=== PATIENT | female | born 1945 | race Caucasian/White ===

== ENCOUNTER 2025-06-22 11:51 | Outpatient (AMB) | payer OTHER, MEDICARE, SELFPAY ==
--- OUTSIDE RECORDS SUMMARY | 2023-12-26 05:40 | XMS_ITS ---
Author Organization Total [employer] Address [address] [place] [address] Care Team Providers Care Contribution Solicitor Name Role Phone MORGAN JUAREZ, HORACIO Primary Care Provider Pamela Vásquez Unavailable [phone] REASON FOR VISIT LR MEDICARE PE Encounters Encounter Location Date Provider Diagnosis [facility] [address] [place] [address] 12/26/2023 Pamela Walters Plan Of Treatment Next Appt Details Provider Name:Pamela english, 06/29/2026 11:00:00 AM, [address], [address], [place], [address], Progress Notes * RASHMI WAN HDOB:09/1944 (80 yo F)Acc No.[id number]:12/26/2023 PROGRESS NOTES Patient: Devin ORTIZALPANATALY MedinaKA Nedra Appointment Provider: Sarath Walters M.D. :1945 A ge:78 Y S ex:Female Date:12/26/2023 Address:[address] [place], [place] [id number] Pcp:HORACIO MORA MD Subjective: * Chief Complaints: * 1 . LR MEDICARE PE. * Medical History: Objective: * Vitals: Assessment: Plan: * Treatment: * Images: Billing Information: * Visit Code: * Procedure Codes: * Electronic signature of Joselin Walters MD on 06/22/2025 at 01:06 PM EST Sign off status: Pending * Appointment Provider: Sarath Walters M.D. Date: 0 12/26/2023 Generated for Shari alves/Toni/Fahad on: 1 08/23/2024 01:06 PM EST
--- OUTSIDE RECORDS SUMMARY | 2025-04-28 06:00 | XMS_ITS ---
Author Organization Total [employer] Address [address] [place] [address] Care Team Providers Care Patrol Judge Name Role Phone MORGAN JUAREZ, HORACIO Primary Care Provider Pamela Vásquez Unavailable [phone] REASON FOR VISIT TALK RE: BLOOD CHOLESTEROL??? Encounters Encounter Location Date Provider Diagnosis [facility] [address] [place] [address] 04/28/2025 Pamela Walters Plan Of Treatment Next Appt Details Provider Name:Pamela english, 06/29/2026 11:00:00 AM, [address], [address], [place], [address], Progress Notes * RASHMI WAN HDOB:09/1944 (80 yo F)Acc No.[id number]:04/28/2025 PROGRESS NOTES Patient: RASHMI GILMAN Appointment Provider: Sarath Walters M.D. :1945 A ge:79 Y S ex:Female Date:04/28/2025 Address:[address] [place] [address] [place], [place] Pcp:HORACIO MORA MD Subjective: * Chief Complaints: * 1 . TALK RE: BLOOD CHOLESTEROL???. * Medical History: Objective: * Vitals: Assessment: Plan: * Treatment: * Images: Billing Information: * Visit Code: * Procedure Codes: * Electronic signature of Joselin Walters MD on 06/22/2025 at 01:07 PM EST Sign off status: Pending * Appointment Provider: Sarath Walters M.D. Date: 1 Generated for Shari alves/Toni/Fahad on: 08/23/2024 01:07 PM EST
--- OUTSIDE RECORDS SUMMARY | 2025-06-22 04:40 | XMS_ITS ---
Author Organization [employer] [facility] Address [address] [place] [address] Care Team Providers Care Lock Operator Name Role Phone MORGAN JUAREZ, HORACIO Primary Care Provider Pamela Vásquez Unavailable [phone] Allergies No Known Allergies REASON FOR VISIT Annual FINANCIAL BUSINESS ANALYST Physical, Annual FINANCIAL BUSINESS ANALYST Physical 60-85+ Medications Medication SIG (Take, Route, [...] Answer Notes Tobacco use: Nonsmoker Vital Signs Height 61.5 in 06/22/2025 Weight 140 lbs 06/22/2025 BMI 26.02 kg/m2 06/22/2025 Blood pressure systolic 118 mm Hg 06/22/20 Blood pressure diastolic 62 mm Hg 025 Temperature 97.5 degrees Fahrenheit 06/22/20 25 Encounters Encounter Location Date Provider Diagnosis [address] [address] 06/22/2025 Pamela Romeo Encounter for gynecological examination [...] Provider Name:Pamela english, 06/29/2026 11:00:00 AM, [address], [address], [place], [address], Progress Notes * SAVAGENATALYKA HDOB:09/1944 (80 yo F)Acc No.[id number]:06/22/2025 PROGRESS NOTES Patient: RASHMI GILMAN Appointment Provider: Sarath Walters M.D. :1945 A ge:80 Y S ex:Female Date:06/22/2025 Address:[address] [place], [place] [id number] Pcp:HORACIO MORA MD Subjective: * Chief Complaints: * Annual FINANCIAL BUSINESS ANALYST PhysicalAnnual FINANCIAL BUSINESS ANALYST Physical 60-85+ * HPI: N ew/Follow-up Patient Consult: EMMA UNDERWENT BSO IN HER 30'S FOR BENIGN CYSTS. SHE WAS NOT PLACED ON HRT. SHE HAS C/O VAGINAL DRYNESS AND DYSPAREUNIA FOR YEARS AND UNDERWENT MARI RHONDA LASER TREATMENT IN [place] IN 2021 WITH NO RELIEF OF SYMPTOMS. [...] TOLERATE ANTIESTROGENS.? SHE IS BEING FOLLOWED AT [facility]. SHE SUFFERED A SUBDURAL HEMATOMA IN 2019 [...] calcium via diet and supplementation S ignificant FINANCIAL BUSINESS ANALYST problems: n o significant hyperion developer symptoms or problems * ROS: g eneral: [...] kin complaints. ? * Medical History: * [employer] History: G ravida/ Para 4 /2. S [...] * Images: Billing Information: * Visit Code: 28111 Preventive Care Est Pt. Age 65 and over. * Procedure Codes: 33731 PELVIC EXAMINATION. * Sign off status: Completed true * Appointment Provider: Saraht Walters M.D. Date: 08/23/2024 Generated for Shari alves/Toni/Maryitting on: 08/23/2024 01:06 PM EST History and Physical Notes * HPI (History of Present Illness) Category Sub-Category Detail Notes Category Not es New/Follow-up Patient Consult PAT UNDERWENT BSO IN HER 30'S FOR BENIGN CYSTS. SHE WAS NOT PLACED ON HRT. SHE HAS C/O VAGINAL DRYNESS AND DYSPAREUNIA FOR YEARS AND UNDERWENT MARI RHONDA LASER TREATMENT IN [place] IN 2021 WITH NO RELIEF OF SYMPTOMS. [...] TOLERATE ANTIESTROGENS. SHE IS BEING FOLLOWED AT [facility]. SHE SUFFERED A SUBDURAL HEMATOMA IN 2019 [...] ate calcium via diet and supplementation Significant FINANCIAL BUSINESS ANALYST problems:: n o significant hyperion developer symptoms or problems Examination Category Sub-Category Detail Notes Category Not es General Exam CONSTITUTIONAL: General Appearan ce:: alert, in no acute distress, normal, well nourished NECK/THYROID: Inspection/Palpation:: normal Thyroid:: normal size and shape RESPIRATORY: Auscultation: clear to auscultation bilaterally, Respiratory Effort: normal CARDIOVASCULAR: Auscultation: regula r rate and rhythm GASTROINTESTINAL: Abdomen:: no masses, nontender , nondistended Liver and Spleen:: normal Hernias:: no hernias present, no inguina l adenopathy MUSCULOSKELETAL: Inspection/Palpation:: no clubb ing, cyanosis, or edema SKIN: Skin:: normal NEURO/PSYCH: Orientation:: time , place, pers on Mood/Affect:: normal BREAST, Right: Inspection/Palpation :: no discharge, no [...]
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
--- NOTE | 2025-06-22 12:31 | MHC.OFFVIS ---
Intake Visit Reasons: lightheadness Allergies No Known Allergies Allergy (Verified 06/17/25 11:35) [facility] Medical History (Updated 06/22/25 @ 12:33 by Maral Nicolas MD) Subdural hematoma Seizure Physical Exam Neuro Other: Neurological: ? Abnormal neurological findings:??slight intermittent left hemifacial spasm john in orbicularis oculi? Mental Status:?alert and oriented X 3,?Normal attention, orientation, memory and affect.? Cranial Nerves:?Pupils are equal, round and reactive to light. Fundoscopy shows normal disc bilaterally. External occular muscles are intact. Visual tavares are full, no ptosis. Face is symmetrical, no facial weakness or droop. Facial sensations are normal. Tongue protrudes in midline. Palate elevates symmetrically. Shoulder shrugging is normal..? Motor Examination:?Normal muscle tone, bulk and strength,?No atrophy or fasciculations,?No drift of the extended upper extremities,?Deep tendon reflexes are 2+?,?Plantars are flexor?.? Motor Strength:? Proximal Muscles (out of 5): ?5 ? Distal Muscles (out of 5): ?5 ? Neck Flexors (out of 5): ?5 ? Neck Extensors (out of 5): ?5 ? Deltoid (out of 5): ?5 ? Biceps (out of 5): ?5 ? Triceps (out of 5): ?5 ? Serratus Anterior (out of 5): ?5 ? Wrist Extensors (out of 5): ?5 ? APB (out of 5): ?5 ? Finger Spread (out of 5): ?5 ? Ileopsoas (out of 5): ?5 ? Quadriceps (out of 5): ?5 ? Hamstrings (out of 5): ?5 ? Tibialis Anterior (out of 5): ?5 ? Peronei (out of 5): ?5 ? EDB (out of 5): ?5 ? Gastrocnemius (out of 5): ?5 ? Straight Leg Raising:?90 degrees.? Sensory Exam:?Normal light touch, temperature, pinprick, vibration and joint-position sensations?,?Rhomberg sign is absent.? Coordination:?no ataxia,?no titubation,?vibvvf-ws-ytcw, wcne-xnqq-cefj test and rapid alternating movements were normal.? Gait Exam:?Within normal limits.? Cerebellar Signs:?Cbxwow-mq-hbua and mjwj-qu-icou is normal,?no dysdiadochokinesia?.? Extrapyramidal System:?No tremor, rigidity with normal facial expressions,?No bradykinesia, no bradyphrenia. Normal arm swing and posture. No propulsion or retropulsion.? Speech:?Normal,?no dysphasia or dysarthria..? Mini Mental Status Exam: ? Level of Consciousness:?Alert.? Orientation:?Knows correct year, month, date, day and season,?Knows correct city, county and state. Knows correct location and floor.? Registration:?Able to register 3 objects.? Attention:?Serial 7's performed accurately.? Recall:?Able to recall 3 out of 3 objects.? Language:?Normal spontaneous speech, fluency, repetition,naming, comprehension, reading and writing.? Total Score ?30/30.? General Examination: ? GENERAL APPEARANCE:?normal,?in no acute distress.? HEAD:?normocephalic,?atraumatic.? EYES:?sclera non-icteric,?conjunctiva clear.? EARS:?auditory canal clear,?tympanic membrane intact, clear.? NOSE:?no lesions.? ORAL CAVITY:?gums normal,?mucosa moist,?no lesions.? THROAT:?clear.? NECK/THYROID:?no cervical lymphadenopathy,?thyroid normal,?neck supple, full range of motion,?no carotid bruit.? SKIN:?no rashes,?no significant birthmarks.? Assessment & Plan Assessment & Plan (1) Hyperlipidemia: Code(s): E78.5 - Hyperlipidemia, unspecified Category: Medical (2) Headache: Code(s): R51.9 - Headache, unspecified Category: Medical Qualifiers: Headache type: tension-type (3) Hemifacial spasm of left side of face: Code(s): G51.32 - Clonic hemifacial spasm, left Category: Medical Plan Check sedrate and lipid profile Orders: Orders Lipid Panel Today R51.9 - Headache, unspecified Erythrocyte Sedimentation Rate Today R51.9 - Headache, unspecified Coding Level of Care Code New Pt Level 5 (14987) Diagnoses Hyperlipidemia E78.5 Headache R51.9 Headache type: tension-type Hemifacial spasm of left side of face G51.32
--- OUTSIDE RECORDS SUMMARY | 2025-06-22 13:07 | XMS_ITS | Patient Health Record ---
Author Organization [facility] [address] Address [address] [place] [address] Care Team Providers Care Deep Fat Cook Fry Name Role Phone VALENTIN, BHASKARROBBIE Primary Care Provider [phone] DARIEL THOMPSON Unavailable [phone] SHONAUNRULY TANIKA Unavailable [phone] Normoyle, Abimael Unavailable [phone] Allergies Allergen (clinical drug ingredient) Drug/Non Drug Allergy documented on EMR Reaction Allergy Type Onset Date Status benzonatate Benzonatate rash Drug Allergy Act antoine Results Component Value Reference Range Flag Notes Comp. Metabolic Panel (14)-3 [id number] Reviewed date:03/23/2025 04:35:22 PM Interpretation: Performing Lab:[facility], [address] [place] [address], [place], Phone - [phone], Director - Jesus Notes/Report: Glucose 93 70-99 mg/dL BUN 10 8-27 mg/dL Creatinine 0.74 0.57-1.00 mg/dL eGFR 82 >59 mL/min/1.73 BUN/Creatinine Ratio 14 12-28 Sodium 138 134-144 mmol/L Potassium 5.3 3.5-5.2 mmol/L H Chloride 101 96-106 mmol/L Carbon Dioxide, Total 23 20-29 mmol/L Calcium 9.5 8.7-10.3 mg/dL Protein, Total 6.6 6.0-8.5 g/dL Albumin 4.1 3.8-4.8 g/dL Globulin, Total 2.5 1.5-4.5 g/dL Bilirubin, Total 0.5 0.0-1.2 mg/dL Alkaline Phosphatase 53 49-135 IU/L P lease note reference interval change AST (SGOT) 20 0-40 IU/L ALT (SGPT) 10 0-32 IU/L Lipid Panel-[id number] Reviewed date:03/23/2025 04:35:22 PM Interpretation: Performing Lab:[facility], [address] [place] [address], Phone - [phone], Director - MDMajodry Notes/Report: Cholesterol, Total 183 100-199 mg/dL Triglycerides 82 0-149 mg/dL HDL Cholesterol 72 >39 mg/dL VLDL Cholesterol Jaime 15 5-40 mg/dL LDL Chol Calc (NIH) 96 0-99 mg/dL Triiodothyronine (T3), Free- [id number] Reviewed date:03/23/2025 04:35:22 PM Interpretation: Performing Lab:[facility] [place], [address] [place] [address], Phone - [phone], Director - MDLaurita Notes/Report: Triiodothyronine (T3), Free 2.8 2.0-4.4 pg/mL CBC With Differential/Platel et-[id number] Reviewed date:03/23/2025 04:35:22 PM Interpretation: Performing Lab:[facility] [place], [address] [place] [address], Phone - [phone], Director - MDJodry Notes/Report: WBC 4.9 3.4-10.8 x10E3/uL RBC 4.24 3.77-5.28 x10E6/uL Hemoglobin 12.2 11.1-15.9 g/dL Hematocrit 40.4 34.0-46.6 % MCV 95 79-97 fL MCH 28.8 26.6-33.0 pg MCHC 30.2 31.5-35.7 g/dL L RDW 13.4 11.7-15.4 % Platelets 247 150-450 x10E3/uL Neutrophils 58 Not Estab. % Lymphs 28 Not Estab. % Monocytes 11 Not Estab. % Eos 2 Not Estab. % Basos 1 Not Estab. % Neutrophils (Absolute) 2.8 1.4-7.0 x10E3/uL Lymphs (Absolute) 1.4 0.7-3.1 x10E3/uL Monocytes(Absolute) 0.5 0.1-0.9 x10E3/uL Eos (Absolute) 0.1 0.0-0.4 x10E3/uL Baso (Absolute) 0.1 0.0-0.2 x10E3/uL Immature Granulocytes 0 Not Estab. % Immature Grans (Abs) 0.0 0.0-0.1 x10E3/uL TSH-[id number] Reviewed date:03/23/2025 04:35:22 PM Interpretation: Performing Lab:[facility] [place], [address] [facility], [place], Phone - [phone], Director - Jesus Notes/Report: TSH 1.950 0.450-4.500 uIU/mL Hemoglobin [id number] Reviewed date:03/23/2025 04:35:22 PM Interpretation: Performing Lab:[facility] [place], [address] [facility], [place], Phone - [phone], Director - Jesus Notes/Report: Hemoglobin A1c 5.7 4.8-5.6 % H . Prediabetes: 5.7 - 6.4 Diabetes: >6.4 Glycemic control for adults with diabetes: <7.0 VAS US DUPLEX CAROTID BILATE RAL Reviewed date:04/21/2025 03:05:14 PM Interpretation: Performing Lab: Notes/Report: Note See Note [facility], a member of [employer] Patient Name: SONAL WAN Date of : 1945 Reason for Exam: episodic lightheadness Exam Date: 04/13/2025 [id number] EST Report Status: Final Ordering Provider: ABIMAEL GIBBS PCP: TANIKA REED INDICATION: Episodic lightheadedness FINDINGS: Duplex and color images are obtained of the extracranial carotid arterial systems bilaterally. No prior studies are available for comparison. No significant atherosclerotic plaque. Normal velocities and waveforms noted bilaterally. There are normal end diastolic velocities bilaterally with antegrade flow in both vertebral arteries. IMPRESSION: No evidence of hemodynamically significant stenosis. -------- FINAL REPOR T -------- Dictated By: Hussein Aviles Dictated Date: 04/20/2025 16:26 ET Assigned Physician: Hussein Aviles Reviewed and Electronically Signed By: Hussein Aviles Signed Date: 04/20/2025 16:27 ET Workstation ID: [id number] Transcribed By: Self Edit Transcribed Date: 04/20/2025 16:26 ET MR BRAIN WO CONTRAST Reviewed date:04/29/2025 10:06:19 AM Interpretation: Performing Lab: Notes/Report: Note See Note [facility], a member of [employer] Patient Name: SONAL WAN Date of : 1945 Reason for Exam: TERRELL's Exam Date: 04/27/2025 [id number] EST Report Status: Final Ordering Provider: HORACIO VALENTIN PCP: TANIKA REED HISTORY: TERRELL's. TECHNIQUE: Routine M RI of the brain without contrast. COMPARISON: None available. FINDINGS: No acute territorial infarct, mass effect, or intracranial hemorrhage. Left middle cranial fossa cysts. No significant white matter disease Symmetric parenchyma l volume loss. CSF spaces commensurate for degree of atrophy. No hydrocephalus. Visualized paranasal sinuses are clear. Mastoid air cells are clear. No calvarial fractur e. Lens implants. IMPRESSION: No acute territorial infarct, mass effect, or intracranial hemorrhage. -------- FINAL REPOR T -------- Dictated By: Rafita Vyas Dictated Date: 04/27/2025 19:12 ET Assigned Physician: Rafita Vyas Reviewed and Electronically Signed By: Rafita Vyas Signed Date: 04/27/2025 19:16 ET Workstation ID: [id number] Transcribed By: Self Edit Transcribed Date: 04/27/2025 19:12 ET COMPREHENSIVE METABOLIC PANE L Reviewed date:03/03/2025 08:39:45 AM Interpretation: Performing Lab: Notes/Report: Sodium 137 133-145 mmol/L Potassium 4.4 3.5-5.5 mmol/L Chloride 102 96-110 mmol/L CO2 29 21-32 mmol/L Anion Gap 6 3-11 Glucose 87 70-100 mg/dL BUN 11 5-25 mg/dL Creatinine 0.88 0.50-1.10 mg/dL eGFR 67 >=60 mL/min/1.73m2 Calculation based on the Chronic Kidney Disease Epidemiology Collaboration (CKD-EPI) equation refit without adjustment for race. BUN/Creatinine Ratio 12.5 Calcium 9.3 8.5-10.5 mg/dL AST (SGOT) 20 10-42 unit/L ALT (SGPT) 14 10-60 unit/L Alkaline Phosphatase 51 42-121 unit/L Total Protein 6.8 6.0-8.0 g/dL Albumin 3.9 3.2-5.0 g/dL Total Bilirubin 0.4 0.0-1.4 mg/dL CBC WITH AUTO DIFFERENTIAL Reviewed date:03/02/2025 04:18:06 PM Interpretation: Performing Lab: Notes/Report: WBC 5.7 4.8-10.8 K/mcL RBC 4.10 3.80-4.80 M/mcL Hemoglobin 12.5 11.5-16.0 g/dL Hematocrit 38.1 35.0-47.0 % MCV 93.2 79.0-98.0 FL MCH 30.6 27.0-32.0 pcg MCHC 32.8 32.0-37.0 g/dL RDW 13.0 11.0-15.0 % Platelets 246 130-400 K/mcL MPV 11.1 7.0-11.0 FL H NRBC 0.0 <1.0 % NRBC Absolute 0.00 <0.10 K/mcL Neutrophils Relative 56.7 Lymphocytes Relative 31.4 Monocytes Relative 9.8 Eosinophils Relative 0.9 Basophils Relative 0.9 Immature Granulocytes Relative 0.3 Neutrophils Absolute 3.25 1.50-7.00 K/mcL Lymphocytes Absolute 1.80 1.00-5.00 K/mcL Monocytes Absolute 0.56 0.20-1.00 K/mcL Eosinophils Absolute 0.05 0.00-0.50 K/mcL Basophils Absolute 0.05 0.00-0.20 K/mcL Immature Granulocytes Absolute 0.02 0.00-0.03 K/mcL EKG (Not yet reviewed by pro vider) Interpretation: Performing Lab: Notes/Report: ECGDiastolicBP 86 ECGDiastolicBP 86 ECGHr 60 ECGHr 60 ECGPRInterval 220 ECGPRInterval 228 ECGPWaveAxis 62 ECGPWaveAxis 61 ECGQRSDuration 84 ECGQRSDuration 82 ECGQrsWaveAxis -20 ECGQrsWaveAxis -18 ECGQTcInterval 432 ECGQTcInterval 428 ECGQTInterval 432 ECGQTInterval 428 ECGSystolicBP 126 ECGSystolicBP 126 ECGTWaveAxis -1 ECGTWaveAxis -1 RR_DiastolicBP 0 RR_DiastolicBP 0 RR_MaxRRInterval 0 RR_MaxRRInterval 0 RR_MeanHR 0 RR_MeanHR 0 RR_MeanRRInterval 0 RR_MeanRRInterval 0 RR_MinRRInterval 0 RR_MinRRInterval 0 RR_NumBeats 0 RR_NumBeats 0 RR_NumNormalBeats 0 RR_NumNormalBeats 0 RR_SystolicBP 0 RR_SystolicBP 0 EKG (Not yet reviewed by pro vider) Interpretation: Performing Lab: Notes/Report: ECGDiastolicBP 86 ECGDiastolicBP 86 ECGHr 60 ECGHr 60 ECGPRInterval 220 ECGPRInterval 228 ECGPWaveAxis 62 ECGPWaveAxis 61 ECGQRSDuration 84 ECGQRSDuration 82 ECGQrsWaveAxis -20 ECGQrsWaveAxis -18 ECGQTcInterval 432 ECGQTcInterval 428 ECGQTInterval 432 ECGQTInterval 428 ECGSystolicBP 126 ECGSystolicBP 126 ECGTWaveAxis -1 ECGTWaveAxis -1 RR_DiastolicBP 0 RR_DiastolicBP 0 RR_MaxRRInterval 0 RR_MaxRRInterval 0 RR_MeanHR 0 RR_MeanHR 0 RR_MeanRRInterval 0 RR_MeanRRInterval 0 RR_MinRRInterval 0 RR_MinRRInterval 0 RR_NumBeats 0 RR_NumBeats 0 RR_NumNormalBeats 0 RR_NumNormalBeats 0 RR_SystolicBP 0 RR_SystolicBP 0 UA/M w/rflx Culture, Routine -[id number] Reviewed date:07/21/2024 09:42:46 AM Interpretation: Performing Lab:[facility], [address] [place] [address], [place], Phone - [phone], Director - Jesus Notes/Report: Specific [place] 1.016 1.005-1.030 pH 6.5 5.0-7.5 Urine-Color Yellow Yellow Appearance Clear Clear WBC Esterase 2+ Negative A Protein Trace Negative/Trace Glucose Negative Negative Ketones Negative Negative Occult Blood Negative Negative Bilirubin Negative Negative Urobilinogen,Semi-Qn 0.2 0.2-1.0 mg/dL Nitrite, Urine Negative Negative Microscopic Examination See below: M icroscopic was indicated and was performed. Urinalysis Reflex This sp ecimen has reflexed to a Urine Culture. WBC 0-5 0 - 5 /hpf RBC None seen 0 - 2 /hpf Epithelial Cells (non renal) 0-10 0 - 10 /hpf Casts None seen None seen /lpf Bacteria Few None seen/Few Urine Culture, Routine Final report Result 1 Culture shows less than 10,000 colony forming units of bacteria per milliliter of urine. This colony count is not generally considered to be clinically significant. GASTROINTESTINAL PATHOGENS M NAVDEEPDAYNAMeaghan STUDY Reviewed date:03/29/2025 02:20:02 PM Interpretation: Performing Lab: Notes/Report: PCR testing is much more sensitive than traditional techniques and allows for the detection of low numbers of stool pathogens. The clinical correlation of PCR results with the need for treatment and clinical outcomes has not been established. Therefore the results of PCR testing for stool pathogens must be taken into clinical context when making treatment decisions. This is a diagnostic test only, repeat testing for cure is not advised. You may consider infectious disease consult for additional guidance. Testing Performed by [facility] PCR Campylobacter Detection by PCR Not Detected Not Detected Plesiomonas shigelloides Detection by PCR Not Detected Not Detected Salmonella Detection by PCR Not Detected Not Detected Vibrio Detection by PCR Not Detected Not Detected Vibrio cholerae Detection by PCR Not Detected Not Detected Yersinia enterocolitica Detection by PCR Not Detected Not Detected Enteroaggregative E coli EAEC Detection by PCR Not Detected Not Detected Enteropathogenic E coli EPEC Detection Not Detected Not Detected Enterotoxigenic E coli ETEC LTST Detection Not Detected Not Detected Shiga-like toxin producing E coli STEC STX1 STX2 Det Not Detected Not Detected Shigella Enteroinvasive E coli EIEC Detection Not Detected Not Detected Cryptosporidium Detection by PCR Not Detected Not Detected Cyclospora cayetanensis Detection by PCR Not Detected Not Detected Entamoeba histolytica Detection by PCR Not Detected Not Detected Giardia lamblia Detection by PCR Not Detected Not Detected Adenovirus F 40 41 Detection by PCR Not Detected Not Detected Astrovirus Detection by PCR Not Detected Not Detected Norovirus GI GII Detection by PCR Not Detected Sapovirus Detection by PCR Not Detected Not Detected Rotavirus A Detection by PCR Not Detected Not Detected CBC With Differential/Platel et-[id number] Reviewed date:07/14/2024 11:23:29 AM Interpretation: Performing Lab:[facility], [address], [place], Phone - [phone], Director - Jesus Notes/Report: WBC 4.1 3.4-10.8 x10E3/uL RBC 4.14 3.77-5.28 x10E6/uL Hemoglobin 12.7 11.1-15.9 g/dL Hematocrit 38.8 34.0-46.6 % MCV 94 79-97 fL MCH 30.7 26.6-33.0 pg MCHC 32.7 31.5-35.7 g/dL RDW 12.9 11.7-15.4 % Platelets 254 150-450 x10E3/uL Neutrophils 47 Not Estab. % Lymphs 37 Not Estab. % Monocytes 12 Not Estab. % Eos 2 Not Estab. % Basos 2 Not Estab. % Neutrophils (Absolute) 2.0 1.4-7.0 x10E3/uL Lymphs (Absolute) 1.5 0.7-3.1 x10E3/uL Monocytes(Absolute) 0.5 0.1-0.9 x10E3/uL Eos (Absolute) 0.1 0.0-0.4 x10E3/uL Baso (Absolute) 0.1 0.0-0.2 x10E3/uL Immature Granulocytes 0 Not Estab. % Immature Grans (Abs) 0.0 0.0-0.1 x10E3/uL Lipid Panel-[id number] Reviewed date:07/14/2024 11:33:40 AM Interpretation: Performing Lab:[facility], [address] [facility], Phone - [phone], Director - MDJodry Notes/Report: Cholesterol, Total 198 100-199 mg/dL Triglycerides 76 0-149 mg/dL HDL Cholesterol 66 >39 mg/dL VLDL Cholesterol Jaime 14 5-40 mg/dL LDL Chol Calc ([facility]) 118 0-99 mg/dL H Comp. Metabolic Panel (14)-3 [id number] Reviewed date:07/14/2024 11:23:29 AM Interpretation: Performing Lab:[facility], [address] [facility], Phone - [phone], Director - MDJoy Notes/Report: Glucose 90 70-99 mg/dL BUN 11 8-27 mg/dL Creatinine 0.74 0.57-1.00 mg/dL eGFR 82 >59 mL/min/1.73 BUN/Creatinine Ratio 15 12-28 Sodium 140 134-144 mmol/L Potassium 4.3 3.5-5.2 mmol/L Chloride 105 96-106 mmol/L Carbon Dioxide, Total 22 20-29 mmol/L Calcium 9.2 8.7-10.3 mg/dL Protein, Total 6.3 6.0-8.5 g/dL Albumin 4.0 3.8-4.8 g/dL Globulin, Total 2.3 1.5-4.5 g/dL Bilirubin, Total 0.5 0.0-1.2 mg/dL Alkaline Phosphatase 55 44-121 IU/L AST (SGOT) 20 0-40 IU/L ALT (SGPT) 9 0-32 IU/L MR ANGIO HEAD WO CONTRAST Reviewed date:05/03/2025 03:54:21 PM Interpretation: Performing Lab: Notes/Report: Note See Note [facility], a member of [facility] Patient Name: SONAL WAN Date of : 1945 Reason for Exam: TERRELL's Exam Date: 04/27/2025 [id number] EST Report Status: Final Ordering Provider: HORACIO VALENTIN PCP: TANIKA REED PROCEDURE: MR angiogram of the rosebud of [place] without contrast. HISTORY: Headaches. COMPARISON: None. TECHNIQUE: 3-D gcsj-uh-crxbzy MR angiogram of the rosebud of [place]illermo with MIP reformats. Limited whole brain imaging performed with diffusion weighted and axial T2-weighted images. FINDINGS: The V4 segments are codominant and widely patent. The basilar artery a nd both recycle driver are widely patent. Diminutive left posterior communicating artery. No visible right posterior communicating artery. The carotid siphons, middle cerebral arteries, anterior cerebral arteries are widely patent. There is no evidence of an aneurysm or vascular malformation. IMPRESSION: Normal MR angiogram of the rosebud of Guillermo. -------- FINAL REPOR T -------- Dictated By: Azeem Min Dictated Date: 04/30/2025 12:09 ET Assigned Physician: Azeem Min Reviewed and Electronically Signed By: Azeem Min Signed Date: 04/30/2025 13:07 ET Workstation ID: [id number] Transcribed By: Self Edit Transcribed Date: 04/30/2025 12:10 ET MR ANGIO NECK WO AND W CONTR AST Reviewed date:05/03/2025 03:54:21 PM Interpretation: Performing Lab: Notes/Report: Note See Note [facility], a member of [employer] Patient Name: SONAL WAN Date of : 1945 Reason for Exam: TERRELL's Exam Date: 04/27/2025 [id number] EST Report Status: Final Ordering Provider: HORACIO VALENTIN PCP: TANIKA REED Procedure: MR angiogram of the neck. HISTORY: Headaches. COMPARISON: None. TECHNIQUE: Contrast-enhanced as well as 2-D and 3-D lies-cu-wkesmi MR angiogram of the neck. IV contrast dose: 20 mL intravenous Dotarem from a 20 mL vial with 0 mL discarded. FINDINGS: Standard three-vesse l aortic arch configuration. No subclavian stenosis. The common and internal carotid arteries are widely patent. Codominant vertebral arteries. No vertebral stenosis. IMPRESSION: Normal MR angiogram of the neck. -------- FINAL REPOR T -------- Dictated By: Azeem Min Dictated Date: 04/30/2025 12:10 ET Assigned Physician: Azeem Min Reviewed and Electronically Signed By: Azeem Min Signed Date: 04/30/2025 13:08 ET Workstation ID: [id number] Transcribed By: Self Edit Transcribed Date: 04/30/2025 12:20 ET Reason For Referral Reason Diagnosis 1 Episodic lightheaded ness (R42) Referral Organization [facility] [address] Referring Provider First Name Abimael Referring Provider Last Name Dangelo Referring Provider Speciality Internal M edicine Referred Provider Specialty Neurology General Notes Akosua Bajwa 08:38:43 AM > referral faxed to [phone] pt given phone [phone] Referral Priority Routine Medications Medication SIG (Take, Route, Frequency, Duration) Notes Start Date End Date Status Multivitamin - Tablet 1 tablet Orally On ce a day Not-Taking Fish Oil Not-Taking Rosuvastatin Calcium 5 MG Tablet Take 1 tablet by mouth once daily; Duration: 90 Active Magnesium Citrate 100 MG Tablet as directed Orally daily 03/25/2025 Active Aspirin 81 MG Tablet Chewable 1 tablet Orally Once a day; Duration: 90 days 07/09/2024 Active Immunizations Vaccine Route Administration Date Status Comme nts Flu vaccine no Preserv 3 and > IM Intramuscular 03/11/2018 Administered influenza IM Intramuscular 03/30/2021 Administered influenza IM Intramuscular 04/02/2022 Administered influenza IM Intramuscular 07/09/2024 Administered Social History Tobacco Use: Social History Observation Description Date Details (start date - stop date) Never Smoker NA - NA Social History Drugs/Alcohol: Social Info Question Answer Notes Drugs Have you used drugs other than those for medical reasons in the past 12 months? No Tobacco Use: Social Info Question Answer Notes Tobacco Use/Smoking Are you a nonsmoker Additional Details Category Social Info Options Details Drugs/Alcohol: Do you smoke marijuana? De nies Do you drink alcohol? No Problems Problem Type SNOMED Code ICD Code Onset Dates Problem Status W/U Status Risk Notes Problem Vitamin D deficiency (45031202) Vitamin D deficiency, unspecified (E55.9) Active confirmed Problem Mixed hyperlipidemia (365355665) Mixed hyperlipidemia (E78.2) Active confirmed Problem Atopic dermatitis (07238790) Atopic dermatitis, unspecified (L20.9) Active confirmed Problem Sciatica (08479839) Lumbago with sciatica, unspecified side (M54.40) Active confirmed Problem Adult health examination (209575818) Encounter for general adult medical examination without abnormal findings (Z00.00) Active confirmed Problem Vertigo (422366887) Vertigo (R42) Active confirmed Problem Annual health maintenance examination (67726916) Annual physical exam (Z00.00) Active confirmed Problem 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) Venous insufficiency (I87.2) Active confirmed Problem Seizure disorder (039944354) Seizure disorder (G40.909) Active confirmed Problem Transient ischemic attack (670955840) TIA (transient ischemic attack) (G45.9) Active confirmed Problem Burning mouth syndrome (806499366) 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) Active confirmed Problem Tension headache (598390549) Tension headache (G44.209) Active confirmed Problem Lipid screening (431858704) Lipid screening (Z13.220) Active confirmed Problem Hyperlipidemia (23920851) Hyperlipidemia (E78.5) Active confirmed Problem Congenital heart disease (88563875) Heart abnormality (Q24.9) Active confirmed Vital Signs Heart Rate 61 /min 04/15/2025 Oximetry 99 % 04/15/2025 Blood pressure diastolic 60 mm Hg 04/15/2025 Height 62 in 04/15/2025 Blood pressure systolic 124 mm Hg 04/15/2025 Weight 144.4 lbs 04/15/2025 BMI 26.41 kg/m2 04/15/2025 Encounters Encounter Location Date Provider Diagnosis [facility] [address] [facility] [address] [place] [address] 07/09/2024 HORACIO VALENTIN Annual physical exam Z00.00 ; Lipid screening Z13.220 and Encounter for immunization Z23 [facility] [address] [facility] [address] [place] [address] 03/02/2025 TANIKA REED Diarrhea, unspecifie d R19.7 ; TIA (transient ischemic attack) G45.9 ; Hyperlipidemia E78.5 and Encounter for examination of blood pressure without abnormal findings Z01.30 [facility] [address] [address] 03/19/2025 Abimael Normoyle Episodic lightheaded ness R42 ; Hx-TIA (transient ischemic attack) Z86.73 ; Mixed hyperlipidemia E78.2 and Encounter for examination of blood pressure without abnormal findings Z01.30 [facility] [address] [address] 03/25/2025 Abimael Normoyle Episodic lightheaded ness R42 ; Hx-TIA (transient ischemic attack) Z86.73 ; Mixed hyperlipidemia E78.2 ; Diarrhea, unspecified R19.7 and Encounter for examination of blood pressure without abnormal findings Z01.30 [facility] [address] [address] 04/01/2025 Abimael Normoyle Episodic lightheaded ness R42 ; Hx-TIA (transient ischemic attack) Z86.73 ; Mixed hyperlipidemia E78.2 and Encounter for examination of blood pressure without abnormal findings Z01.30 [facility] [address] [address] 04/15/2025 Abimael Normoyle Episodic lightheaded ness R42 ; Hx-TIA (transient ischemic attack) Z86.73 ; Mixed hyperlipidemia E78.2 ; Hx of subdural hematoma Z86.79 ; Encounter for examination of blood pressure without abnormal findings Z01.30 and Acute nonintractable headache, unspecified headache type R51.[address] [facility] [address] [place] [address] 11/24/2024 DARIEL THOMPSON [facility] [address] [place], [place] 02/18/2025 TALAL VALENTIN [facility] [address] [place] [address] 02/23/2025 TALAL VALENTIN [facility] [address] [place] [address] [place] [phone] 03/03/2025 TANIKA NAGELKS [facility] [address] [place] [address] [place] [address] 03/03/2025 TALAL VALENTIN [facility] [address] [place] [address] [place] [address] 03/18/2025 TALAL VALENTIN [facility] [address] [place] [address] 03/19/2025 Abimael Normoyle [facility] [address] [place] [address] [place] [phone] 04/01/2025 TALAL VALENTIN [facility] [address] [place] [address] 04/08/2025 Abimael Normoyle Headache, unspecifie d R51.9 [facility] [address] [place] [address] [place] [phone] 04/20/2025 Abimael Normoyle [facility] [address] [place] [address] 04/21/2025 Abimael Normoyle Headache, unspecifie d R51.9 [facility] [address] [place] [address] [place] [phone] 04/21/2025 Abimael Normoyle [facility] [address] [place] [address] 05/03/2025 TALAL VALENTIN Assessments Encounter Date Diagnosis (ICD Code) Assessment Notes Treatment Notes Treatment Clinical Notes Section Notes 07/09/2024 Annual physical exam (ICD-10 - Z00.00) Insert insert physical plan from wo Patient seen and examined. Comprehensive discussion was done on the following. 1. Nutrition: It is important to follow a healthy diet based on lots of vegetables and legumes and good fat. Avoid processed food and processed carbohydrates. Learn to prepare your own meals. Learn to read labels and avoid high fructose corn syrup, processed chemicals added to increase shelf life and preprepared meals. Avoid fast foods. Learn to eat slowly and plan meals for a week. Try to count calories and be mindful off daily calorie intake. Get into the habit of keeping an eye on your weight by using an appropriate scale. Learn to log exercise and discussed fitness Apps like [employer] which can help keep log off calories taken versus calories burned. Local food should be preferred. Discussed Dirty Dozen Versus Clean Fifteen. Discussed healthy supplements like fish oil, Tumeric, Curcumin, Melatonin, Resveratrol, Probiotics, Vitamin-D, Alpha-Lipoic acid, Vitamin-D and coconut oil. 2. It is important to exercise regularly. Is a good habit to walk at least 30-45 minutes a day. Gentle weightlifting with standard precautions to protect the back. Finding activity like cycling or hiking and get into the habit of engaging in it. Stretching before and after the exercises important. It is also important to contact me if there are any problems like shortness of breath, chest pain, back pain and joint or muscle pain associated with the exercise. 3. Discussed age appropriate screening guidelines. Colonoscopy needs to start at age 50 with stool for occult blood as appropriate. There is a new test that can test for genetic abnormalities in the stool sample. This would not replace a colonoscopy but could be used as a screening tool for patients who do not want a colonoscopy. We discussed the importance of early detection of colon cancer. 4. Discussed current guidelines with respect to breast examination, mammogram and pap smear for early detection of breast and cervical cancer. Patient advised to follow up with these appointments. 5. Discussed safe driving and no use of smart phone while driving 6. Age-appropriate immunizations were discussed. A tetanus booster is needed every 10 years. Flu vaccine is recommended every year just before the start of the flu season. Shingles vaccine is recommended after age 50 but not all insurances cover it. Pneumonia vaccine is given after age 65 unless there are certain comorbidities for which it is started earlier. 7. Diagnostic labs were discussed. These could include CBC CMP and lipids with fasting blood glucose and insulin levels. Vitamin D and hemoglobin A1c testing might be appropriate. 8. Patient will start rosuvastatin for hyperlipidemia and aspirin 81 mg at least twice a and follow-up in 1 year and sooner if needed 9.Flu vaccine was updated today 03/02/2025 Diarrhea, unspecified (ICD-10 - R19.7) Patient is an 79-year-old female with history of chronic lumbar pain, TIA, and seizure disorder who presents today for urgent visit for approximately 2 weeks of diarrhea, constipation, and abdominal distention. She reports that stools are nonbloody and not tarry appearing. Denies fever. Reports no nausea or vomiting. No known sick contacts. On exam she is well-appearing and in no acute distress. Vital signs are stable. Cardiopulmonary exam unremarkable. Abdominal exam reveals active bowel sounds to auscultation, abdomen is soft, slightly distended upon palpation. She has generalized discomfort with gentle palpation however no localized tenderness in any quadrant. No rebound tenderness or masses. At this time plan will be to obtain updated labs including CBC and comprehensive metabolic panel, because she has had several weeks of abnormal stools we will obtain stool cultures. Low suspicion for infectious etiology at this time. Will evaluate for any electrolyte abnormalities. Advised patient to continue regular hydration with electrolytes, maintain high-fiber diet, and begin taking a probiotic daily. Patient understanding, advised to return to the office if symptoms do not improve. All patient questions answered at this time. # History of TIA: Continue use of aspirin 81 mg once daily and rosuvastatin 5 mg daily. # Hyperlipidemia: Lipid panel in July 2024 with finding of elevated LDL cholesterol at 118. Continue daily statin and fish oil supplement. All questions have been answered to patient's satisfaction. Patient verbalized understanding of diagnosis and treatments explained. Advised to call sooner prior to next visit it any questions/concerns arise. Case discussed with collaborating physician Karli Valentin who reviewed the assessment and plan. Chart, medications, labs, vital signs reviewed. Dictation was accomplished with the use of [employer] voice recognition software, which is prone to medical misidentifications and grammatical errors. This are unintentional and the practitioner does try to identify and correct these, but some could still be present. Please do not hesitate to contact practitioner for clarification. 03/02/2025 TIA (transient ischemic attack) (ICD-10 - G45.9) Patient is an 79-year-old female with history of chronic lumbar pain, TIA, and seizure disorder who presents today for urgent visit for approximately 2 weeks of diarrhea, constipation, and abdominal distention. She reports that stools are nonbloody and not tarry appearing. Denies fever. Reports no nausea or vomiting. No known sick contacts. On exam she is well-appearing and in no acute distress. Vital signs are stable. Cardiopulmonary exam unremarkable. Abdominal exam reveals active bowel sounds to auscultation, abdomen is soft, slightly distended upon palpation. She has generalized discomfort with gentle palpation however no localized tenderness in any quadrant. No rebound tenderness or masses. At this time plan will be to obtain updated labs including CBC and comprehensive metabolic panel, because she has had several weeks of abnormal stools we will obtain stool cultures. Low suspicion for infectious etiology at this time. Will evaluate for any electrolyte abnormalities. Advised patient to continue regular hydration with electrolytes, maintain high-fiber diet, and begin taking a probiotic daily. Patient understanding, advised to return to the office if symptoms do not improve. All patient questions answered at this time. # History of TIA: Continue use of aspirin 81 mg once daily and rosuvastatin 5 mg daily. # Hyperlipidemia: Lipid panel in July 2024 with finding of elevated LDL cholesterol at 118. Continue daily statin and fish oil supplement. All questions have been answered to patient's satisfaction. Patient verbalized understanding of diagnosis and treatments explained. Advised to call sooner prior to next visit it any questions/concerns arise. Case discussed with collaborating physician Karli Valentin who reviewed the assessment and plan. Chart, medications, labs, vital signs reviewed. Dictation was accomplished with the use of [employer] voice recognition software, which is prone to medical misidentifications and grammatical errors. This are unintentional and the practitioner does try to identify and correct these, but some could still be present. Please do not hesitate to contact practitioner for clarification. 03/19/2025 Episodic lightheadedness (ICD-10 - R42) Sonal is a 79-year-old female with past medical history of hyperlipidemia, seizure disorder, and TIA in 2021 who presents for urgent visit regarding lightheadedness for 1 week, intermittent in nature lasting up to a couple of hours. Denies symptoms occurring with positional changes, denies chest pain, shortness of breath, vision changes, palpitations, presyncope, syncope. She has been hydrating and eating well. Physical exam benign, vital signs stable, regular rate and rhythm on cardiac auscultation with no carotid bruits auscultated. #Lightheadedness: Differential is broad. Plan for CBC, CMP, thyroid panel, vitamin B12. Plan for carotid ultrasound. Encouraged patient to take her BP at home when she feels lightheaded to evaluate for hypotension. Advised performing a EKG and orthostatics in office today, however, patient declines due to time crunch. Will follow-up in 1 week for reevaluation. At this time, will perform EKG and orthostatics. Patient encouraged to report to the ER for syncope, advised to call the office sooner if symptoms persist or worsen. #Hyperlipidemia: Patient requesting repeat lipid panel. She is interested in discontinuing rosuvastatin. Lipid panel placed today. All questions have been answered to patient's satisfaction. Patient verbalized understanding of diagnosis and treatments explained. Advised to call sooner prior to next visit it any questions/concerns arise. Case discussed with collaborating physician Karli Valentin who reviewed the assessment and plan. Chart, medications, labs, vital signs reviewed. Dictation was accomplished with the use of [employer] voice recognition software, which is prone to medical misidentifications and grammatical errors. This are unintentional and the practitioner does try to identify and correct these, but some could still be present. Please do not hesitate to contact practitioner for clarification. 03/19/2025 Hx-TIA (transient ischemic attack) (ICD-10 - Z86.73) Sonal is a 79-year-old female with past medical history of hyperlipidemia, seizure disorder, and TIA in 2021 who presents for urgent visit regarding lightheadedness for 1 week, intermittent in nature lasting up to a couple of hours. Denies symptoms occurring with positional changes, denies chest pain, shortness of breath, vision changes, palpitations, presyncope, syncope. She has been hydrating and eating well. Physical exam benign, vital signs stable, regular rate and rhythm on cardiac auscultation with no carotid bruits auscultated. #Lightheadedness: Differential is broad. Plan for CBC, CMP, thyroid panel, vitamin B12. Plan for carotid ultrasound. Encouraged patient to take her BP at home when she feels lightheaded to evaluate for hypotension. Advised performing a EKG and orthostatics in office today, however, patient declines due to time crunch. Will follow-up in 1 week for reevaluation. At this time, will perform EKG and orthostatics. Patient encouraged to report to the ER for syncope, advised to call the office sooner if symptoms persist or worsen. #Hyperlipidemia: Patient requesting repeat lipid panel. She is interested in discontinuing rosuvastatin. Lipid panel placed today. All questions have been answered to patient's satisfaction. Patient verbalized understanding of diagnosis and treatments explained. Advised to call sooner prior to next visit it any questions/concerns arise. Case discussed with collaborating physician Karli Valentin who reviewed the assessment and plan. Chart, medications, labs, vital signs reviewed. Dictation was accomplished with the use of [employer] voice recognition software, which is prone to medical misidentifications and grammatical errors. This are unintentional and the practitioner does try to identify and correct these, but some could still be present. Please do not hesitate to contact practitioner for clarification. 03/25/2025 Episodic lightheadedness (ICD-10 - R42) Sonal is a 79-year-old female with past medical history of hyperlipidemia, seizure disorder, and TIA in 2021 who presents for follow up visit regarding lightheadedness for 2 weeks, intermittent in nature lasting up to a couple of hours. Denies symptoms occurring with positional changes, denies chest pain, shortness of breath, vision changes, palpitations, syncope. She has been hydrating and eating well. Physical exam benign, vital signs stable, orthostatic vitals unremarkable, regular rate and rhythm on cardiac auscultation with no carotid bruits auscultated. EKG sinus rhythm, first degree AV block, rate 60. OK interval 220. QTc 432. No ST segment elevations or depressions, no T wave inversions. CBC, CMP, TSH, B12 unremarkable. #Lightheadedness: Thus far, orthostatic vitals, labs, EKG unremarkable. Plan for carotid ultrasound. Patient encouraged to report to the ER for syncope, advised to call the office sooner if symptoms persist or worsen. Discussed MRI brain given history of TIA and brain bleed, however, patient declines. Discussed further work up including echocardiogram, Holter, however, patient declines. Will follow carotid ultrasound. If normal and symptoms ongoing, will consider further work up. F/u in 1 week. #Hyperlipidemia: Lipid panel significantly improved with rosuvastatin 5 mg tablets every other day. She is requesting to discontinue. Given history of TIA, along with workup of carotid artery stenosis, recommended continuing rosuvastatin. All questions have been answered to patient's satisfaction. Patient verbalized understanding of diagnosis and treatments explained. Advised to call sooner prior to next visit it any questions/concerns arise. Case discussed with collaborating physician Karli Valentin who reviewed the assessment and plan. Chart, medications, labs, vital signs reviewed. Dictation was accomplished with the use of [employer] voice recognition software, which is prone to medical misidentifications and grammatical errors. This are unintentional and the practitioner does try to identify and correct these, but some could still be present. Please do not hesitate to contact practitioner for clarification. 03/25/2025 Hx-TIA (transient ischemic attack) (ICD-10 - Z86.73) Sonal is a 79-year-old female with past medical history of hyperlipidemia, seizure disorder, and TIA in 2021 who presents for follow up visit regarding lightheadedness for 2 weeks, intermittent in nature lasting up to a couple of hours. Denies symptoms occurring with positional changes, denies chest pain, shortness of breath, vision changes, palpitations, syncope. She has been hydrating and eating well. Physical exam benign, vital signs stable, orthostatic vitals unremarkable, regular rate and rhythm on cardiac auscultation with no carotid bruits auscultated. EKG sinus rhythm, first degree AV block, rate 60. OK interval 220. QTc 432. No ST segment elevations or depressions, no T wave inversions. CBC, CMP, TSH, B12 unremarkable. #Lightheadedness: Thus far, orthostatic vitals, labs, EKG unremarkable. Plan for carotid ultrasound. Patient encouraged to report to the ER for syncope, advised to call the office sooner if symptoms persist or worsen. Discussed MRI brain given history of TIA and brain bleed, however, patient declines. Discussed further work up including echocardiogram, Holter, however, patient declines. Will follow carotid ultrasound. If normal and symptoms ongoing, will consider further work up. F/u in 1 week. #Hyperlipidemia: Lipid panel significantly improved with rosuvastatin 5 mg tablets every other day. She is requesting to discontinue. Given history of TIA, along with workup of carotid artery stenosis, recommended continuing rosuvastatin. All questions have been answered to patient's satisfaction. Patient verbalized understanding of diagnosis and treatments explained. Advised to call sooner prior to next visit it any questions/concerns arise. Case discussed with collaborating physician Karli Valentin who reviewed the assessment and plan. Chart, medications, labs, vital signs reviewed. Dictation was accomplished with the use of [employer] voice recognition software, which is prone to medical misidentifications and grammatical errors. This are unintentional and the practitioner does try to identify and correct these, but some could still be present. Please do not hesitate to contact practitioner for clarification. 04/01/2025 Episodic lightheadedness (ICD-10 - R42) Sonal is a 79-year-old female with past medical history of hyperlipidemia, seizure disorder, and TIA in 2021 who presents for follow up visit regarding lightheadedness for 3 weeks, intermittent in nature lasting up to a couple of hours. Denies symptoms occurring with positional changes, denies chest pain, shortness of breath, vision changes, palpitations, syncope. She has been hydrating and eating well. Physical exam benign, vital signs stable, orthostatic vitals unremarkable, regular rate and rhythm on cardiac auscultation with no carotid bruits auscultated. EKG sinus rhythm, first degree AV block, rate 60. OK interval 220. QTc 432. No ST segment elevations or depressions, no T wave inversions. CBC, CMP, TSH, B12 unremarkable. #Lightheadedness: Patient requires extensive education regarding importance of workup of her symptoms. She is agreeable to carotid ultrasound which is pending scheduling, previously declined imaging of the brain. Today, continue to have ongoing discussions regarding brain imaging. She is agreeable to MRI brain. Plan for MRI with MRA head and neck for further evaluation. Will cancel carotid ultrasound due to MRA providing details of vasculature. Will follow-up again in 2 weeks. #Hyperlipidemia: Lipid panel significantly improved with rosuvastatin 5 mg tablets every other day. She is requesting to discontinue. Given history of TIA, along with workup of carotid artery stenosis, recommended continuing rosuvastatin. All questions have been answered to patient's satisfaction. Patient verbalized understanding of diagnosis and treatments explained. Advised to call sooner prior to next visit it any questions/concerns arise. Case discussed with collaborating physician Karli Valentin who reviewed the assessment and plan. Chart, medications, labs, vital signs reviewed. Dictation was accomplished with the use of Dragon voice recognition software, which is prone to medical misidentifications and grammatical errors. This are unintentional and the practitioner does try to identify and correct these, but some could still be present. Please do not hesitate to contact practitioner for clarification. 04/01/2025 Hx-TIA (transient ischemic attack) (ICD-10 - Z86.73) Sonal is a 79-year-old female with past medical history of hyperlipidemia, seizure disorder, and TIA in 2021 who presents for follow up visit regarding lightheadedness for 3 weeks, intermittent in nature lasting up to a couple of hours. Denies symptoms occurring with positional changes, denies chest pain, shortness of breath, vision changes, palpitations, syncope. She has been hydrating and eating well. Physical exam benign, vital signs stable, orthostatic vitals unremarkable, regular rate and rhythm on cardiac auscultation with no carotid bruits auscultated. EKG sinus rhythm, first degree AV block, rate 60. OK interval 220. QTc 432. No ST segment elevations or depressions, no T wave inversions. CBC, CMP, TSH, B12 unremarkable. #Lightheadedness: Patient requires extensive education regarding importance of workup of her symptoms. She is agreeable to carotid ultrasound which is pending scheduling, previously declined imaging of the brain. Today, continue to have ongoing discussions regarding brain imaging. She is agreeable to MRI brain. Plan for MRI with MRA head and neck for further evaluation. Will cancel carotid ultrasound due to MRA providing details of vasculature. Will follow-up again in 2 weeks. #Hyperlipidemia: Lipid panel significantly improved with rosuvastatin 5 mg tablets every other day. She is requesting to discontinue. Given history of TIA, along with workup of carotid artery stenosis, recommended continuing rosuvastatin. All questions have been answered to patient's satisfaction. Patient verbalized understanding of diagnosis and treatments explained. Advised to call sooner prior to next visit it any questions/concerns arise. Case discussed with collaborating physician Karli Valentin who reviewed the assessment and plan. Chart, medications, labs, vital signs reviewed. Dictation was accomplished with the use of [employer] voice recognition software, which is prone to medical misidentifications and grammatical errors. This are unintentional and the practitioner does try to identify and correct these, but some could still be present. Please do not hesitate to contact practitioner for clarification. 04/08/2025 Headache, unspecified (ICD-10 - R51.9) 04/15/2025 Episodic lightheadedness (ICD-10 - R42) Sonal is a 79-year-old female with past medical history of hyperlipidemia, seizure disorder, and TIA in 2021 who presents for follow up visit regarding dizziness and headaches for 1 month, intermittent in nature lasting up to a couple of hours. Denies symptoms occurring with positional changes, denies chest pain, shortness of breath, vision changes, palpitations, presyncope, or syncope. She has been hydrating and eating well. Physical exam benign, vital signs stable, orthostatic vitals unremarkable, regular rate and rhythm on cardiac auscultation with no carotid bruits auscultated. EKG sinus rhythm, first degree AV block, rate 60. OK interval 220. QTc 432. No ST segment elevations or depressions, no T wave inversions. CBC, CMP, TSH, B12 unremarkable. #Lightheadedness: Patient requires extensive education regarding importance of workup of her symptoms. She is now agreeable for brain imaging. MRI brain and MRA head and neck was placed 04/08/2025, pending scheduling. Patient given phone number to call regarding imaging. Encouraged patient to report to the ER if she develops severe headache, vision changes, presyncope or syncope. She expresses understanding. Referral to neurology placed today. #Headaches: Intermittent, mild headache ongoing for the past month. She believes it is due for neck arthritis. Differential includes cervical spine arthritis, benign headache, SDH, vertigo with associated dizziness, or arterial etiology. Discussed ER last visit to expedite imaging to rule out life threatening etiology, patient declined. She also cancelled brain imaging after this visit. Today she is agreeable. Plan for brain imaging noted above. If normal, will undergo further workup to determine etiology of headaches. Referral to neurology placed today #Hyperlipidemia: Lipid panel significantly improved with rosuvastatin 5 mg tablets every other day. She is requesting to discontinue. Given history of TIA, along with workup of carotid artery stenosis, recommended continuing rosuvastatin. All questions have been answered to patient's satisfaction. Patient verbalized understanding of diagnosis and treatments explained. Advised to call sooner prior to next visit it any questions/concerns arise. Case discussed with collaborating physician Karli Valentin who reviewed the assessment and plan. Chart, medications, labs, vital signs reviewed. Dictation was accomplished with the use of [employer] voice recognition software, which is prone to medical misidentifications and grammatical errors. This are unintentional and the practitioner does try to identify and correct these, but some could still be present. Please do not hesitate to contact practitioner for clarification. 04/15/2025 Hx-TIA (transient ischemic attack) (ICD-10 - Z86.73) Sonal is a 79-year-old female with past medical history of hyperlipidemia, seizure disorder, and TIA in 2021 who presents for follow up visit regarding dizziness and headaches for 1 month, intermittent in nature lasting up to a couple of hours. Denies symptoms occurring with positional changes, denies chest pain, shortness of breath, vision changes, palpitations, presyncope, or syncope. She has been hydrating and eating well. Physical exam benign, vital signs stable, orthostatic vitals unremarkable, regular rate and rhythm on cardiac auscultation with no carotid bruits auscultated. EKG sinus rhythm, first degree AV block, rate 60. OK interval 220. QTc 432. No ST segment elevations or depressions, no T wave inversions. CBC, CMP, TSH, B12 unremarkable. #Lightheadedness: Patient requires extensive education regarding importance of workup of her symptoms. She is now agreeable for brain imaging. MRI brain and MRA head and neck was placed 04/08/2025, pending scheduling. Patient given phone number to call regarding imaging. Encouraged patient to report to the ER if she develops severe headache, vision changes, presyncope or syncope. She expresses understanding. Referral to neurology placed today. #Headaches: Intermittent, mild headache ongoing for the past month. She believes it is due for neck arthritis. Differential includes cervical spine arthritis, benign headache, SDH, vertigo with associated dizziness, or arterial etiology. Discussed ER last visit to expedite imaging to rule out life threatening etiology, patient declined. She also cancelled brain imaging after this visit. Today she is agreeable. Plan for brain imaging noted above. If normal, will undergo further workup to determine etiology of headaches. Referral to neurology placed today #Hyperlipidemia: Lipid panel significantly improved with rosuvastatin 5 mg tablets every other day. She is requesting to discontinue. Given history of TIA, along with workup of carotid artery stenosis, recommended continuing rosuvastatin. All questions have been answered to patient's satisfaction. Patient verbalized understanding of diagnosis and treatments explained. Advised to call sooner prior to next visit it any questions/concerns arise. Case discussed with collaborating physician Karli Valentin who reviewed the assessment and plan. Chart, medications, labs, vital signs reviewed. Dictation was accomplished with the use of [employer] voice recognition software, which is prone to medical misidentifications and grammatical errors. This are unintentional and the practitioner does try to identify and correct these, but some could still be present. Please do not hesitate to contact practitioner for clarification. 04/21/2025 Headache, unspecified (ICD-10 - R51.9) 04/15/2025 Mixed hyperlipidemia (ICD-10 - E78.2) Sonal is a 79-year-old female with past medical history of hyperlipidemia, seizure disorder, and TIA in 2021 who presents for follow up visit regarding dizziness and headaches for 1 month, intermittent in nature lasting up to a couple of hours. Denies symptoms occurring with positional changes, denies chest pain, shortness of breath, vision changes, palpitations, presyncope, or syncope. She has been hydrating and eating well. Physical exam benign, vital signs stable, orthostatic vitals unremarkable, regular rate and rhythm on cardiac auscultation with no carotid bruits auscultated. EKG sinus rhythm, first degree AV block, rate 60. OK interval 220. QTc 432. No ST segment elevations or depressions, no T wave inversions. CBC, CMP, TSH, B12 unremarkable. #Lightheadedness: Patient requires extensive education regarding importance of workup of her symptoms. She is now agreeable for brain imaging. MRI brain and MRA head and neck was placed 04/08/2025, pending scheduling. Patient given phone number to call regarding imaging. Encouraged patient to report to the ER if she develops severe headache, vision changes, presyncope or syncope. She expresses understanding. Referral to neurology placed today. #Headaches: Intermittent, mild headache ongoing for the past month. She believes it is due for neck arthritis. Differential includes cervical spine arthritis, benign headache, SDH, vertigo with associated dizziness, or arterial etiology. Discussed ER last visit to expedite imaging to rule out life threatening etiology, patient declined. She also cancelled brain imaging after this visit. Today she is agreeable. Plan for brain imaging noted above. If normal, will undergo further workup to determine etiology of headaches. Referral to neurology placed today #Hyperlipidemia: Lipid panel significantly improved with rosuvastatin 5 mg tablets every other day. She is requesting to discontinue. Given history of TIA, along with workup of carotid artery stenosis, recommended continuing rosuvastatin. All questions have been answered to patient's satisfaction. Patient verbalized understanding of diagnosis and treatments explained. Advised to call sooner prior to next visit it any questions/concerns arise. Case discussed with collaborating physician Karli Valentin who reviewed the assessment and plan. Chart, medications, labs, vital signs reviewed. Dictation was accomplished with the use of [employer] voice recognition software, which is prone to medical misidentifications and grammatical errors. This are unintentional and the practitioner does try to identify and correct these, but some could still be present. Please do not hesitate to contact practitioner for clarification. 04/01/2025 Mixed hyperlipidemia (ICD-10 - E78.2) Sonal is a 79-year-old female with past medical history of hyperlipidemia, seizure disorder, and TIA in 2021 who presents for follow up visit regarding lightheadedness for 3 weeks, intermittent in nature lasting up to a couple of hours. Denies symptoms occurring with positional changes, denies chest pain, shortness of breath, vision changes, palpitations, syncope. She has been hydrating and eating well. Physical exam benign, vital signs stable, orthostatic vitals unremarkable, regular rate and rhythm on cardiac auscultation with no carotid bruits auscultated. EKG sinus rhythm, first degree AV block, rate 60. OK interval 220. QTc 432. No ST segment elevations or depressions, no T wave inversions. CBC, CMP, TSH, B12 unremarkable. #Lightheadedness: Patient requires extensive education regarding importance of workup of her symptoms. She is agreeable to carotid ultrasound which is pending scheduling, previously declined imaging of the brain. Today, continue to have ongoing discussions regarding brain imaging. She is agreeable to MRI brain. Plan for MRI with MRA head and neck for further evaluation. Will cancel carotid ultrasound due to MRA providing details of vasculature. Will follow-up again in 2 weeks. #Hyperlipidemia: Lipid panel significantly improved with rosuvastatin 5 mg tablets every other day. She is requesting to discontinue. Given history of TIA, along with workup of carotid artery stenosis, recommended continuing rosuvastatin. All questions have been answered to patient's satisfaction. Patient verbalized understanding of diagnosis and treatments explained. Advised to call sooner prior to next visit it any questions/concerns arise. Case discussed with collaborating physician Karli Valentin who reviewed the assessment and plan. Chart, medications, labs, vital signs reviewed. Dictation was accomplished with the use of [employer] voice recognition software, which is prone to medical misidentifications and grammatical errors. This are unintentional and the practitioner does try to identify and correct these, but some could still be present. Please do not hesitate to contact practitioner for clarification. 03/25/2025 Mixed hyperlipidemia (ICD-10 - E78.2) Sonal is a 79-year-old female with past medical history of hyperlipidemia, seizure disorder, and TIA in 2021 who presents for follow up visit regarding lightheadedness for 2 weeks, intermittent in nature lasting up to a couple of hours. Denies symptoms occurring with positional changes, denies chest pain, shortness of breath, vision changes, palpitations, syncope. She has been hydrating and eating well. Physical exam benign, vital signs stable, orthostatic vitals unremarkable, regular rate and rhythm on cardiac auscultation with no carotid bruits auscultated. EKG sinus rhythm, first degree AV block, rate 60. OK interval 220. QTc 432. No ST segment elevations or depressions, no T wave inversions. CBC, CMP, TSH, B12 unremarkable. #Lightheadedness: Thus far, orthostatic vitals, labs, EKG unremarkable. Plan for carotid ultrasound. Patient encouraged to report to the ER for syncope, advised to call the office sooner if symptoms persist or worsen. Discussed MRI brain given history of TIA and brain bleed, however, patient declines. Discussed further work up including echocardiogram, Holter, however, patient declines. Will follow carotid ultrasound. If normal and symptoms ongoing, will consider further work up. F/u in 1 week. #Hyperlipidemia: Lipid panel significantly improved with rosuvastatin 5 mg tablets every other day. She is requesting to discontinue. Given history of TIA, along with workup of carotid artery stenosis, recommended continuing rosuvastatin. All questions have been answered to patient's satisfaction. Patient verbalized understanding of diagnosis and treatments explained. Advised to call sooner prior to next visit it any questions/concerns arise. Case discussed with collaborating physician Karli Valentin who reviewed the assessment and plan. Chart, medications, labs, vital signs reviewed. Dictation was accomplished with the use of [employer] voice recognition software, which is prone to medical misidentifications and grammatical errors. This are unintentional and the practitioner does try to identify and correct these, but some could still be present. Please do not hesitate to contact practitioner for clarification. 03/02/2025 Hyperlipidemia (ICD-10 - E78.5) Patient is an 79-year-old female with history of chronic lumbar pain, TIA, and seizure disorder who presents today for urgent visit for approximately 2 weeks of diarrhea, constipation, and abdominal distention. She reports that stools are nonbloody and not tarry appearing. Denies fever. Reports no nausea or vomiting. No known sick contacts. On exam she is well-appearing and in no acute distress. Vital signs are stable. Cardiopulmonary exam unremarkable. Abdominal exam reveals active bowel sounds to auscultation, abdomen is soft, slightly distended upon palpation. She has generalized discomfort with gentle palpation however no localized tenderness in any quadrant. No rebound tenderness or masses. At this time plan will be to obtain updated labs including CBC and comprehensive metabolic panel, because she has had several weeks of abnormal stools we will obtain stool cultures. Low suspicion for infectious etiology at this time. Will evaluate for any electrolyte abnormalities. Advised patient to continue regular hydration with electrolytes, maintain high-fiber diet, and begin taking a probiotic daily. Patient understanding, advised to return to the office if symptoms do not improve. All patient questions answered at this time. # History of TIA: Continue use of aspirin 81 mg once daily and rosuvastatin 5 mg daily. # Hyperlipidemia: Lipid panel in July 2024 with finding of elevated LDL cholesterol at 118. Continue daily statin and fish oil supplement. All questions have been answered to patient's satisfaction. Patient verbalized understanding of diagnosis and treatments explained. Advised to call sooner prior to next visit it any questions/concerns arise. Case discussed with collaborating physician Karli Valentin who reviewed the assessment and plan. Chart, medications, labs, vital signs reviewed. Dictation was accomplished with the use of [employer] voice recognition software, which is prone to medical misidentifications and grammatical errors. This are unintentional and the practitioner does try to identify and correct these, but some could still be present. Please do not hesitate to contact practitioner for clarification. 03/19/2025 Mixed hyperlipidemia (ICD-10 - E78.2) Sonal is a 79-year-old female with past medical history of hyperlipidemia, seizure disorder, and TIA in 2021 who presents for urgent visit regarding lightheadedness for 1 week, intermittent in nature lasting up to a couple of hours. Denies symptoms occurring with positional changes, denies chest pain, shortness of breath, vision changes, palpitations, presyncope, syncope. She has been hydrating and eating well. Physical exam benign, vital signs stable, regular rate and rhythm on cardiac auscultation with no carotid bruits auscultated. #Lightheadedness: Differential is broad. Plan for CBC, CMP, thyroid panel, vitamin B12. Plan for carotid ultrasound. Encouraged patient to take her BP at home when she feels lightheaded to evaluate for hypotension. Advised performing a EKG and orthostatics in office today, however, patient declines due to time crunch. Will follow-up in 1 week for reevaluation. At this time, will perform EKG and orthostatics. Patient encouraged to report to the ER for syncope, advised to call the office sooner if symptoms persist or worsen. #Hyperlipidemia: Patient requesting repeat lipid panel. She is interested in discontinuing rosuvastatin. Lipid panel placed today. All questions have been answered to patient's satisfaction. Patient verbalized understanding of diagnosis and treatments explained. Advised to call sooner prior to next visit it any questions/concerns arise. Case discussed with collaborating physician Karli Valentin who reviewed the assessment and plan. Chart, medications, labs, vital signs reviewed. Dictation was accomplished with the use of [employer] voice recognition software, which is prone to medical misidentifications and grammatical errors. This are unintentional and the practitioner does try to identify and correct these, but some could still be present. Please do not hesitate to contact practitioner for clarification. 07/09/2024 Lipid screening (ICD-10 - Z13.220) Insert insert physical plan from [facility] Patient seen and examined. Comprehensive discussion was done on the following. 1. Nutrition: It is important to follow a healthy diet based on lots of vegetables and legumes and good fat. Avoid processed food and processed carbohydrates. Learn to prepare your own meals. Learn to read labels and avoid high fructose corn syrup, processed chemicals added to increase shelf life and preprepared meals. Avoid fast foods. Learn to eat slowly and plan meals for a week. Try to count calories and be mindful off daily calorie intake. Get into the habit of keeping an eye on your weight by using an appropriate scale. Learn to log exercise and discussed fitness Apps like [employer] which can help keep log off calories taken versus calories burned. Local food should be preferred. Discussed Dirty Dozen Versus Clean Fifteen. Discussed healthy supplements like fish oil, Tumeric, Curcumin, Melatonin, Resveratrol, Probiotics, Vitamin-D, Alpha-Lipoic acid, Vitamin-D and coconut oil. 2. It is important to exercise regularly. Is a good habit to walk at least 30-45 minutes a day. Gentle weightlifting with standard precautions to protect the back. Finding activity like cycling or hiking and get into the habit of engaging in it. Stretching before and after the exercises important. It is also important to contact me if there are any problems like shortness of breath, chest pain, back pain and joint or muscle pain associated with the exercise. 3. Discussed age appropriate screening guidelines. Colonoscopy needs to start at age 50 with stool for occult blood as appropriate. There is a new test that can test for genetic abnormalities in the stool sample. This would not replace a colonoscopy but could be used as a screening tool for patients who do not want a colonoscopy. We discussed the importance of early detection of colon cancer. 4. Discussed current guidelines with respect to breast examination, mammogram and pap smear for early detection of breast and cervical cancer. Patient advised to follow up with these appointments. 5. Discussed safe driving and no use of smart phone while driving 6. Age-appropriate immunizations were discussed. A tetanus booster is needed every 10 years. Flu vaccine is recommended every year just before the start of the flu season. Shingles vaccine is recommended after age 50 but not all insurances cover it. Pneumonia vaccine is given after age 65 unless there are certain comorbidities for which it is started earlier. 7. Diagnostic labs were discussed. These could include CBC CMP and lipids with fasting blood glucose and insulin levels. Vitamin D and hemoglobin A1c testing might be appropriate. 8. Patient will start rosuvastatin for hyperlipidemia and aspirin 81 mg at least twice a and follow-up in 1 year and sooner if needed 9.Flu vaccine was updated today 07/09/2024 Encounter for immunization (ICD-10 - Z23) Insert insert physical plan from [facility] Patient seen and examined. Comprehensive discussion was done on the following. 1. Nutrition: It is important to follow a healthy diet based on lots of vegetables and legumes and good fat. Avoid processed food and processed carbohydrates. Learn to prepare your own meals. Learn to read labels and avoid high fructose corn syrup, processed chemicals added to increase shelf life and preprepared meals. Avoid fast foods. Learn to eat slowly and plan meals for a week. Try to count calories and be mindful off daily calorie intake. Get into the habit of keeping an eye on your weight by using an appropriate scale. Learn to log exercise and discussed fitness Apps like [employer] which can help keep log off calories taken versus calories burned. Local food should be preferred. Discussed Dirty Dozen Versus Clean Fifteen. Discussed healthy supplements like fish oil, Tumeric, Curcumin, Melatonin, Resveratrol, Probiotics, Vitamin-D, Alpha-Lipoic acid, Vitamin-D and coconut oil. 2. It is important to exercise regularly. Is a good habit to walk at least 30-45 minutes a day. Gentle weightlifting with standard precautions to protect the back. Finding activity like cycling or hiking and get into the habit of engaging in it. Stretching before and after the exercises important. It is also important to contact me if there are any problems like shortness of breath, chest pain, back pain and joint or muscle pain associated with the exercise. 3. Discussed age appropriate screening guidelines. Colonoscopy needs to start at age 50 with stool for occult blood as appropriate. There is a new test that can test for genetic abnormalities in the stool sample. This would not replace a colonoscopy but could be used as a screening tool for patients who do not want a colonoscopy. We discussed the importance of early detection of colon cancer. 4. Discussed current guidelines with respect to breast examination, mammogram and pap smear for early detection of breast and cervical cancer. Patient advised to follow up with these appointments. 5. Discussed safe driving and no use of smart phone while driving 6. Age-appropriate immunizations were discussed. A tetanus booster is needed every 10 years. Flu vaccine is recommended every year just before the start of the flu season. Shingles vaccine is recommended after age 50 but not all insurances cover it. Pneumonia vaccine is given after age 65 unless there are certain comorbidities for which it is started earlier. 7. Diagnostic labs were discussed. These could include CBC CMP and lipids with fasting blood glucose and insulin levels. Vitamin D and hemoglobin A1c testing might be appropriate. 8. Patient will start rosuvastatin for hyperlipidemia and aspirin 81 mg at least twice a and follow-up in 1 year and sooner if needed 9.Flu vaccine was updated today 03/02/2025 Encounter for examination of blood pressure without abnormal findings (ICD-10 - Z01.30) Patient is an 79-year-old female with history of chronic lumbar pain, TIA, and seizure disorder who presents today for urgent visit for approximately 2 weeks of diarrhea, constipation, and abdominal distention. She reports that stools are nonbloody and not tarry appearing. Denies fever. Reports no nausea or vomiting. No known sick contacts. On exam she is well-appearing and in no acute distress. Vital signs are stable. Cardiopulmonary exam unremarkable. Abdominal exam reveals active bowel sounds to auscultation, abdomen is soft, slightly distended upon palpation. She has generalized discomfort with gentle palpation however no localized tenderness in any quadrant. No rebound tenderness or masses. At this time plan will be to obtain updated labs including CBC and comprehensive metabolic panel, because she has had several weeks of abnormal stools we will obtain stool cultures. Low suspicion for infectious etiology at this time. Will evaluate for any electrolyte abnormalities. Advised patient to continue regular hydration with electrolytes, maintain high-fiber diet, and begin taking a probiotic daily. Patient understanding, advised to return to the office if symptoms do not improve. All patient questions answered at this time. # History of TIA: Continue use of aspirin 81 mg once daily and rosuvastatin 5 mg daily. # Hyperlipidemia: Lipid panel in July 2024 with finding of elevated LDL cholesterol at 118. Continue daily statin and fish oil supplement. All questions have been answered to patient's satisfaction. Patient verbalized understanding of diagnosis and treatments explained. Advised to call sooner prior to next visit it any questions/concerns arise. Case discussed with collaborating physician Karli Valentin who reviewed the assessment and plan. Chart, medications, labs, vital signs reviewed. Dictation was accomplished with the use of [employer] voice recognition software, which is prone to medical misidentifications and grammatical errors. This are unintentional and the practitioner does try to identify and correct these, but some could still be present. Please do not hesitate to contact practitioner for clarification. 03/19/2025 Encounter for examination of blood pressure without abnormal findings (ICD-10 - Z01.30) Sonal is a 79-year-old female with past medical history of hyperlipidemia, seizure disorder, and TIA in 2021 who presents for urgent visit regarding lightheadedness for 1 week, intermittent in nature lasting up to a couple of hours. Denies symptoms occurring with positional changes, denies chest pain, shortness of breath, vision changes, palpitations, presyncope, syncope. She has been hydrating and eating well. Physical exam benign, vital signs stable, regular rate and rhythm on cardiac auscultation with no carotid bruits auscultated. #Lightheadedness: Differential is broad. Plan for CBC, CMP, thyroid panel, vitamin B12. Plan for carotid ultrasound. Encouraged patient to take her BP at home when she feels lightheaded to evaluate for hypotension. Advised performing a EKG and orthostatics in office today, however, patient declines due to time crunch. Will follow-up in 1 week for reevaluation. At this time, will perform EKG and orthostatics. Patient encouraged to report to the ER for syncope, advised to call the office sooner if symptoms persist or worsen. #Hyperlipidemia: Patient requesting repeat lipid panel. She is interested in discontinuing rosuvastatin. Lipid panel placed today. All questions have been answered to patient's satisfaction. Patient verbalized understanding of diagnosis and treatments explained. Advised to call sooner prior to next visit it any questions/concerns arise. Case discussed with collaborating physician Karli Valentin who reviewed the assessment and plan. Chart, medications, labs, vital signs reviewed. Dictation was accomplished with the use of [employer] voice recognition software, which is prone to medical misidentifications and grammatical errors. This are unintentional and the practitioner does try to identify and correct these, but some could still be present. Please do not hesitate to contact practitioner for clarification. 03/25/2025 Diarrhea, unspecified (ICD-10 - R19.7) Sonal is a 79-year-old female with past medical history of hyperlipidemia, seizure disorder, and TIA in 2021 who presents for follow up visit regarding lightheadedness for 2 weeks, intermittent in nature lasting up to a couple of hours. Denies symptoms occurring with positional changes, denies chest pain, shortness of breath, vision changes, palpitations, syncope. She has been hydrating and eating well. Physical exam benign, vital signs stable, orthostatic vitals unremarkable, regular rate and rhythm on cardiac auscultation with no carotid bruits auscultated. EKG sinus rhythm, first degree AV block, rate 60. OK interval 220. QTc 432. No ST segment elevations or depressions, no T wave inversions. CBC, CMP, TSH, B12 unremarkable. #Lightheadedness: Thus far, orthostatic vitals, labs, EKG unremarkable. Plan for carotid ultrasound. Patient encouraged to report to the ER for syncope, advised to call the office sooner if symptoms persist or worsen. Discussed MRI brain given history of TIA and brain bleed, however, patient declines. Discussed further work up including echocardiogram, Holter, however, patient declines. Will follow carotid ultrasound. If normal and symptoms ongoing, will consider further work up. F/u in 1 week. #Hyperlipidemia: Lipid panel significantly improved with rosuvastatin 5 mg tablets every other day. She is requesting to discontinue. Given history of TIA, along with workup of carotid artery stenosis, recommended continuing rosuvastatin. All questions have been answered to patient's satisfaction. Patient verbalized understanding of diagnosis and treatments explained. Advised to call sooner prior to next visit it any questions/concerns arise. Case discussed with collaborating physician Karli Valentin who reviewed the assessment and plan. Chart, medications, labs, vital signs reviewed. Dictation was accomplished with the use of [employer] voice recognition software, which is prone to medical misidentifications and grammatical errors. This are unintentional and the practitioner does try to identify and correct these, but some could still be present. Please do not hesitate to contact practitioner for clarification. 04/01/2025 Encounter for examination of blood pressure without abnormal findings (ICD-10 - Z01.30) Sonal is a 79-year-old female with past medical history of hyperlipidemia, seizure disorder, and TIA in 2021 who presents for follow up visit regarding lightheadedness for 3 weeks, intermittent in nature lasting up to a couple of hours. Denies symptoms occurring with positional changes, denies chest pain, shortness of breath, vision changes, palpitations, syncope. She has been hydrating and eating well. Physical exam benign, vital signs stable, orthostatic vitals unremarkable, regular rate and rhythm on cardiac auscultation with no carotid bruits auscultated. EKG sinus rhythm, first degree AV block, rate 60. OK interval 220. QTc 432. No ST segment elevations or depressions, no T wave inversions. CBC, CMP, TSH, B12 unremarkable. #Lightheadedness: Patient requires extensive education regarding importance of workup of her symptoms. She is agreeable to carotid ultrasound which is pending scheduling, previously declined imaging of the brain. Today, continue to have ongoing discussions regarding brain imaging. She is agreeable to MRI brain. Plan for MRI with MRA head and neck for further evaluation. Will cancel carotid ultrasound due to MRA providing details of vasculature. Will follow-up again in 2 weeks. #Hyperlipidemia: Lipid panel significantly improved with rosuvastatin 5 mg tablets every other day. She is requesting to discontinue. Given history of TIA, along with workup of carotid artery stenosis, recommended continuing rosuvastatin. All questions have been answered to patient's satisfaction. Patient verbalized understanding of diagnosis and treatments explained. Advised to call sooner prior to next visit it any questions/concerns arise. Case discussed with collaborating physician Karli Valentin who reviewed the assessment and plan. Chart, medications, labs, vital signs reviewed. Dictation was accomplished with the use of [employer] voice recognition software, which is prone to medical misidentifications and grammatical errors. This are unintentional and the practitioner does try to identify and correct these, but some could still be present. Please do not hesitate to contact practitioner for clarification. 04/15/2025 Hx of subdural hematoma (ICD-10 - Z86.79) Sonal is a 79-year-old female with past medical history of hyperlipidemia, seizure disorder, and TIA in 2021 who presents for follow up visit regarding dizziness and headaches for 1 month, intermittent in nature lasting up to a couple of hours. Denies symptoms occurring with positional changes, denies chest pain, shortness of breath, vision changes, palpitations, presyncope, or syncope. She has been hydrating and eating well. Physical exam benign, vital signs stable, orthostatic vitals unremarkable, regular rate and rhythm on cardiac auscultation with no carotid bruits auscultated. EKG sinus rhythm, first degree AV block, rate 60. OK interval 220. QTc 432. No ST segment elevations or depressions, no T wave inversions. CBC, CMP, TSH, B12 unremarkable. #Lightheadedness: Patient requires extensive education regarding importance of workup of her symptoms. She is now agreeable for brain imaging. MRI brain and MRA head and neck was placed 04/08/2025, pending scheduling. Patient given phone number to call regarding imaging. Encouraged patient to report to the ER if she develops severe headache, vision changes, presyncope or syncope. She expresses understanding. Referral to neurology placed today. #Headaches: Intermittent, mild headache ongoing for the past month. She believes it is due for neck arthritis. Differential includes cervical spine arthritis, benign headache, SDH, vertigo with associated dizziness, or arterial etiology. Discussed ER last visit to expedite imaging to rule out life threatening etiology, patient declined. She also cancelled brain imaging after this visit. Today she is agreeable. Plan for brain imaging noted above. If normal, will undergo further workup to determine etiology of headaches. Referral to neurology placed today #Hyperlipidemia: Lipid panel significantly improved with rosuvastatin 5 mg tablets every other day. She is requesting to discontinue. Given history of TIA, along with workup of carotid artery stenosis, recommended continuing rosuvastatin. All questions have been answered to patient's satisfaction. Patient verbalized understanding of diagnosis and treatments explained. Advised to call sooner prior to next visit it any questions/concerns arise. Case discussed with collaborating physician Karli Valentin who reviewed the assessment and plan. Chart, medications, labs, vital signs reviewed. Dictation was accomplished with the use of [employer] voice recognition software, which is prone to medical misidentifications and grammatical errors. This are unintentional and the practitioner does try to identify and correct these, but some could still be present. Please do not hesitate to contact practitioner for clarification. 04/15/2025 Encounter for examination of blood pressure without abnormal findings (ICD-10 - Z01.30) Sonal is a 79-year-old female with past medical history of hyperlipidemia, seizure disorder, and TIA in 2021 who presents for follow up visit regarding dizziness and headaches for 1 month, intermittent in nature lasting up to a couple of hours. Denies symptoms occurring with positional changes, denies chest pain, shortness of breath, vision changes, palpitations, presyncope, or syncope. She has been hydrating and eating well. Physical exam benign, vital signs stable, orthostatic vitals unremarkable, regular rate and rhythm on cardiac auscultation with no carotid bruits auscultated. EKG sinus rhythm, first degree AV block, rate 60. OK interval 220. QTc 432. No ST segment elevations or depressions, no T wave inversions. CBC, CMP, TSH, B12 unremarkable. #Lightheadedness: Patient requires extensive education regarding importance of workup of her symptoms. She is now agreeable for brain imaging. MRI brain and MRA head and neck was placed 04/08/2025, pending scheduling. Patient given phone number to call regarding imaging. Encouraged patient to report to the ER if she develops severe headache, vision changes, presyncope or syncope. She expresses understanding. Referral to neurology placed today. #Headaches: Intermittent, mild headache ongoing for the past month. She believes it is due for neck arthritis. Differential includes cervical spine arthritis, benign headache, SDH, vertigo with associated dizziness, or arterial etiology. Discussed ER last visit to expedite imaging to rule out life threatening etiology, patient declined. She also cancelled brain imaging after this visit. Today she is agreeable. Plan for brain imaging noted above. If normal, will undergo further workup to determine etiology of headaches. Referral to neurology placed today #Hyperlipidemia: Lipid panel significantly improved with rosuvastatin 5 mg tablets every other day. She is requesting to discontinue. Given history of TIA, along with workup of carotid artery stenosis, recommended continuing rosuvastatin. All questions have been answered to patient's satisfaction. Patient verbalized understanding of diagnosis and treatments explained. Advised to call sooner prior to next visit it any questions/concerns arise. Case discussed with collaborating physician Karli Valentin who reviewed the assessment and plan. Chart, medications, labs, vital signs reviewed. Dictation was accomplished with the use of [employer] voice recognition software, which is prone to medical misidentifications and grammatical errors. This are unintentional and the practitioner does try to identify and correct these, but some could still be present. Please do not hesitate to contact practitioner for clarification. 03/25/2025 Encounter for examination of blood pressure without abnormal findings (ICD-10 - Z01.30) Sonal is a 79-year-old female with past medical history of hyperlipidemia, seizure disorder, and TIA in 2021 who presents for follow up visit regarding lightheadedness for 2 weeks, intermittent in nature lasting up to a couple of hours. Denies symptoms occurring with positional changes, denies chest pain, shortness of breath, vision changes, palpitations, syncope. She has been hydrating and eating well. Physical exam benign, vital signs stable, orthostatic vitals unremarkable, regular rate and rhythm on cardiac auscultation with no carotid bruits auscultated. EKG sinus rhythm, first degree AV block, rate 60. OK interval 220. QTc 432. No ST segment elevations or depressions, no T wave inversions. CBC, CMP, TSH, B12 unremarkable. #Lightheadedness: Thus far, orthostatic vitals, labs, EKG unremarkable. Plan for carotid ultrasound. Patient encouraged to report to the ER for syncope, advised to call the office sooner if symptoms persist or worsen. Discussed MRI brain given history of TIA and brain bleed, however, patient declines. Discussed further work up including echocardiogram, Holter, however, patient declines. Will follow carotid ultrasound. If normal and symptoms ongoing, will consider further work up. F/u in 1 week. #Hyperlipidemia: Lipid panel significantly improved with rosuvastatin 5 mg tablets every other day. She is requesting to discontinue. Given history of TIA, along with workup of carotid artery stenosis, recommended continuing rosuvastatin. All questions have been answered to patient's satisfaction. Patient verbalized understanding of diagnosis and treatments explained. Advised to call sooner prior to next visit it any questions/concerns arise. Case discussed with collaborating physician Karli Valentin who reviewed the assessment and plan. Chart, medications, labs, vital signs reviewed. Dictation was accomplished with the use of [employer] voice recognition software, which is prone to medical misidentifications and grammatical errors. This are unintentional and the practitioner does try to identify and correct these, but some could still be present. Please do not hesitate to contact practitioner for clarification. 04/15/2025 Acute nonintractable headache, unspecified headache type (ICD-10 - R51.9) Sonla is a 79-year-old female with past medical history of hyperlipidemia, seizure disorder, and TIA in 2021 who presents for follow up visit regarding dizziness and headaches for 1 month, intermittent in nature lasting up to a couple of hours. Denies symptoms occurring with positional changes, denies chest pain, shortness of breath, vision changes, palpitations, presyncope, or syncope. She has been hydrating and eating well. Physical exam benign, vital signs stable, orthostatic vitals unremarkable, regular rate and rhythm on cardiac auscultation with no carotid bruits auscultated. EKG sinus rhythm, first degree AV block, rate 60. OK interval 220. QTc 432. No ST segment elevations or depressions, no T wave inversions. CBC, CMP, TSH, B12 unremarkable. #Lightheadedness: Patient requires extensive education regarding importance of workup of her symptoms. She is now agreeable for brain imaging. MRI brain and MRA head and neck was placed 04/08/2025, pending scheduling. Patient given phone number to call regarding imaging. Encouraged patient to report to the ER if she develops severe headache, vision changes, presyncope or syncope. She expresses understanding. Referral to neurology placed today. #Headaches: Intermittent, mild headache ongoing for the past month. She believes it is due for neck arthritis. Differential includes cervical spine arthritis, benign headache, SDH, vertigo with associated dizziness, or arterial etiology. Discussed ER last visit to expedite imaging to rule out life threatening etiology, patient declined. She also cancelled brain imaging after this visit. Today she is agreeable. Plan for brain imaging noted above. If normal, will undergo further workup to determine etiology of headaches. Referral to neurology placed today #Hyperlipidemia: Lipid panel significantly improved with rosuvastatin 5 mg tablets every other day. She is requesting to discontinue. Given history of TIA, along with workup of carotid artery stenosis, recommended continuing rosuvastatin. All questions have been answered to patient's satisfaction. Patient verbalized understanding of diagnosis and treatments explained. Advised to call sooner prior to next visit it any questions/concerns arise. Case discussed with collaborating physician Karli Valentin who reviewed the assessment and plan. Chart, medications, labs, vital signs reviewed. Dictation was accomplished with the use of [employer] voice recognition software, which is prone to medical misidentifications and grammatical errors. This are unintentional and the practitioner does try to identify and correct these, but some could still be present. Please do not hesitate to contact practitioner for clarification. Plan Of Treatment Pending Test Test Name Order Date Ultrasound : Carotids 03/25/2025 Vitamin B12 01/28/2018 Osmolality, Serum 03/14/2020 Stool Culture 03/25/2025 Lipid Panel 07/03/2018 CBC 07/03/2018 Urinalysis 07/03/2018 MRI : Brain with and without contrast MRA : Head without contrast 04/08/2025 MRA : Neck withou Contrast 04/08/2025 MRI : Brain without Contrast 04/21/2025 EKG 03/25/2025 25OH VITAMIN D 02/09/2021 CBC (COMPLETE BLOOD COUNT) 12/16/2017 COMPREHENSIVE METABOLIC PANEL 12/16/2017 COMPREHENSIVE METABOLIC PANEL 07/03/2018 HEMOGLOBIN A1C 12/16/2017 LIPID PANEL 02/09/2021 LIPID PANEL 12/16/2017 TSH WITH REFLEX TO FT4 12/16/2017 URINALYSIS, COMPLETE 12/16/2017 Vitamin D 1,25 Dihydroxy Level 9 Osmolality Urine 03/14/2020 Culture Stool 03/02/2025 MRA Neck w and w/o Contrast 04/21/2025 VITAMIN D, 25-HYDROXY 01/28/2018 URINE CULTURE 03/14/2020 UA WITH CULTURE IF INDICATED 07/09/2024 TOTAL T3 03/19/2025 LIPID PANEL, STANDARD 03/19/2025 LIPID PANEL, STANDARD 07/09/2024 LIPID PANEL, STANDARD 01/09/2024 LIPID PANEL, STANDARD 01/24/2022 LIPID PANEL, STANDARD 07/04/2023 COMPREHENSIVE METABOLIC PANEL 07/04/2023 COMPREHENSIVE METABOLIC PANEL 05/14/2024 COMPREHENSIVE METABOLIC PANEL 01/09/2024 COMPREHENSIVE METABOLIC PANEL 07/09/2024 COMPREHENSIVE METABOLIC PANEL 03/02/2025 COMPREHENSIVE METABOLIC PANEL 03/19/2025 CBC (INCLUDES DIFF/PLT) 03/19/2025 CBC (INCLUDES DIFF/PLT) 03/02/2025 CBC (INCLUDES DIFF/PLT) 07/09/2024 CBC (INCLUDES DIFF/PLT) 01/09/2024 CBC (INCLUDES DIFF/PLT) 05/14/2024 CBC (INCLUDES DIFF/PLT) 07/04/2023 URINALYSIS, COMPLETE 01/09/2024 URINALYSIS, COMPLETE 07/04/2023 HEMOGLOBIN A1c 03/19/2025 TSH 03/19/2025 T3, FREE 03/19/2025 Future Test Test Name Order Date 25OH VITAMIN D 09/16/2020 CBC (COMPLETE BLOOD COUNT) 09/16/2020 COMPREHENSIVE METABOLIC PANEL 09/16/2020 T3, FREE 09/16/2020 T4, TOTAL 09/16/2020 TSH 09/16/2020 ESR 09/16/2020 COMPLETE URINALYSIS 09/16/2020 Next Appt Details Provider Name:HORACIO VALENTIN, 07/12/2025 10:00:00 AM, [address], [facility] [place], [id number], Insurance Providers Payer Name Payer Address Payer Phone Subscriber Number Group Number Insured Name Patient Relationship to Insured Coverage Start Date Coverage End Date Medicare Part B [id number] [address] [place] [address] [id number] SONAL KENDRICK Self - patient is the insured [employer] [address] [id number] SONAL KENDRICK Self - patient is the insured Medical (General) History Medical History History ICD Code low back pain vitamin D deficiency seizure disorder TIA 2021 Surgical History Surgery Date(Month/Year) ovaries removed colonoscopy 5 years
--- OUTSIDE RECORDS SUMMARY | 2025-06-22 13:07 | XMS_ITS | Clinical Summary ---
Author Organization [facility] Address [address] [place] [address] Phone Care Team Providers Care Home Care Administrator Name Role Phone Daiana Clark Primary Care Provider [phone] Encounters Date Type Department Care Team Description 04/27/2025 2:50 PM EDT - 04/27/2025 11:59 PM EDT Hospital Encounter [facility] MRI [address] [place] [address] Headache, unspecified Discharge Disposition: Home or Self Care 04/27/2025 2:50 PM EDT - 04/27/2025 11:59 PM EDT Hospital Encounter [facility] MRI [address] [place] [address] Headache, unspecified Discharge Disposition: Home or Self Care 04/27/2025 2:47 PM EDT - 04/27/2025 11:59 PM EDT Hospital Encounter [facility] MRI [address] [place] [address] Headache, unspecified Discharge Disposition: Home or Self Care 04/13/2025 9:10 AM EDT - 04/13/2025 11:59 PM EDT Hospital Encounter [facility] Ultrasound [address] [place] [address] Episodic lightheadedness Discharge Disposition: Home or Self Care from Last 3 Months Social History Tobacco Use Types Packs/Day Years Used Date Smoking Tobacco: Never Assessed Comments Unknown Sex and Gender Information Value Date Recorded Sex Assigned at Not on file Legal Sex Female 8:07 AM EST Gender Identity Not on file Sexual Orientation Not on file Plan of Treatment Health Maintenance Due Date Last Done Comments DTaP,Tdap,and Td Vaccines (1 - Tdap) 1964 Cholesterol Screening (Lipid Panel) 06/03/2022 [place] Risk Assessment 06/03/2022 Medicare Annual Wellness Visit 06/03/2022 Osteoporosis Screening (Bone Density Screening) 06/03/2022 Social Influencers of Health Screening 06/03/2022 Depression Screening 07/01/2024 COVID-19 Vaccine (3 - season) 2025 10/11/2020, 09/13/2020 Influenza Vaccine (#1) 2025 , 04/29/2023, 04/02/2022, Additional history exists Pneumococcal Vaccine: 50+ Years Completed 01/31/2020, 07/31/2017, 07/31/2016 RSV Immunization Adult Patients Completed 04/22/2024, 02/18/2024 Zoster Vaccines Completed 06/27/2024, 01/27/2024 HIB Vaccines Aged Out No longer eligi ble based on patient's age to complete this topic HPV Vaccines Aged Out No longer eligi ble based on patient's age to complete this topic Hepatitis A Vaccines Aged Out No long er eligible based on patient's age to complete this topic Hepatitis B Vaccines Aged Out No long er eligible based on patient's age to complete this topic IPV Vaccines Aged Out No longer eligi ble based on patient's age to complete this topic MMR Vaccines Aged Out No longer eligi ble based on patient's age to complete this topic Meningococcal ACWY Vaccine Aged Out N o longer eligible based on patient's age to complete this topic Meningococcal B Vaccine Aged Out No l onger eligible based on patient's age to complete this topic RSV Immunization Patients Under 20 months Aged Out No longer eligible based on patient's age to complete this topic Varicella Vaccines Aged Out No longer eligible based on patient's age to complete this topic Procedures Procedure Name Priority Date/Time Associated Diagnosis Comments MR ANGIO NECK WO AND W CONTRAST Routine 04/27/2025 4:25 PM EDT Headache, unspecified MR ANGIO HEAD WO CONTRAST Routine 04/27/2025 4:19 PM EDT Headache, unspecified MR BRAIN WO CONTRAST Routine 04/27/2025 4:19 PM EDT Headache, unspecified VAS US DUPLEX CAROTID BILATERAL Routine 04/13/2025 9:42 AM EDT Episodic lightheadedness GASTROINTESTINAL PATHOGENS BY PCR Routine 03/26/2025 1:07 PM EDT Diarrhea Anemia due to metabolic disorder from Last 3 Months Results * MR Angio Neck wo and w Contrast (04/27/2025 4:25 PM EDT) Anatomical Region Laterality Modality Head and Neck Magnetic Resonan ce 04/30/2025 12:1 0 PM EDT Impressions 04/30/2025 1:08 PM EDT Normal MR angiogram of the neck. -------- FINAL REPORT -------- Dictated By: Azeem Min Dictated Date: 04/30/2025 12:10 ET Assigned Physician: Azeem Min Reviewed and Electronically Signed By: Azeem Min Signed Date: 04/30/2025 13:08 ET Workstation ID: [id number] Transcribed By: Self Edit Transcribed Date: 04/30/2025 12:20 ET Narrative 04/30/2025 1:08 PM EDT Procedure: MR angiogram of the neck. HISTORY: Headaches. COMPARISON: None. TECHNIQUE: Contrast-enhanced as well as 2-D and 3-D qsfz-xt-zcmeic MR angiogram of the neck. IV contrast dose: 20 mL intravenous Dotarem from a 20 mL vial with 0 mL discarded. FINDINGS: Standard three-vessel aortic arch configuration. No subclavian stenosis. The common and internal carotid arteries are widely patent. Codominant vertebral arteries. No vertebral stenosis. Procedure Note Azeem Min MD - 04/30/2025 Procedure: MR angiogram of the neck. HISTORY: Headaches. COMPARISON: None. TECHNIQUE: Contrast-enhanced as well as 2-D and 3-D jkkn-ub-cwawon MRangiogram of the neck. IV contrast dose: 20 mL intravenous Dotarem from a 20 mL vial with 0 mLdiscarded. FINDINGS: Standard three-vessel aortic arch configuration. No subclavian stenosis. The common and internal carotid arteries are widely patent. Codominant vertebral arteries. No vertebral stenosis. IMPRESSION: Normal MR angiogram of the neck. -------- FINAL REPORT -------- Dictated By: Azeem Min Dictated Date: 04/30/2025 12:10 ET Assigned Physician: Azeem Min Reviewed and Electronically Signed By: Azeem Min Signed Date: 04/30/2025 13:08 ET Workstation ID: [id number] Transcribed By: Self Edit Transcribed Date: 04/30/2025 12:20 ET Caitlin Valentin MD [facility] [place] PROCEDURES Final Result * MR Angio Head wo Contrast (04/27/2025 4:19 PM EDT) Anatomical Region Laterality Modality Head and Neck Magnetic Resonan ce 04/30/2025 12:0 9 PM EDT Impressions 04/30/2025 1:07 PM EDT Normal MR angiogram of the [place]. -------- FINAL REPORT -------- Dictated By: Azeem Min Dictated Date: 04/30/2025 12:09 ET Assigned Physician: Azeem Min Reviewed and Electronically Signed By: Azeem Min Signed Date: 04/30/2025 13:07 ET Workstation ID: [id number] Transcribed By: Self Edit Transcribed Date: 04/30/2025 12:10 ET Narrative 04/30/2025 1:07 PM EDT PROCEDURE: MR angiogram of the [place] without contrast. HISTORY: Headaches. COMPARISON: None. TECHNIQUE: 3-D [id number]-mu-gyrkmy MR angiogram of the [place] with MIP reformats. Limited whole brain imaging performed with diffusion weighted and axial T2-weighted images. FINDINGS: The V4 segments are codominant and widely patent. The basilar artery and both short story writer are widely patent. Diminutive left posterior communicating artery. No visible right posterior communicating artery. The carotid siphons, middle cerebral arteries, anterior cerebral arteries are widely patent. There is no evidence of an aneurysm or vascular malformation. Procedure Note Azeem Min MD - 04/30/2025 PROCEDURE: MR angiogram of the [place] without contrast. HISTORY: Headaches. COMPARISON: None. TECHNIQUE: 3-D [id number]-[id number] MR angiogram of the [place] withMIP reformats. Limited whole brain imaging performed with diffusionweighted and axial T2- weighted images. FINDINGS: The V4 segments are codominant and widely patent. The basilar artery and both short story writer are widely patent. Diminutive left posterior communicating artery. No visible rightposterior communicating artery. The carotid siphons, middle cerebral arteries, anterior cerebral arteriesare widely patent. There is no evidence of an aneurysm or vascular malformation. IMPRESSION: Normal MR angiogram of the [place]. -------- FINAL REPORT -------- Dictated By: Azeem Min Dictated Date: 04/30/2025 12:09 ET Assigned Physician: Azeem Min Reviewed and Electronically Signed By: Azeem Min Signed Date: 04/30/2025 13:07 ET Workstation ID: [id number] Transcribed By: Self Edit Transcribed Date: 04/30/2025 12:10 ET Caitlin Valentin MD IM MRI PROCEDURES Final Result * MR Brain wo Contrast (04/27/2025 4:19 PM EDT) Anatomical Region Laterality Modality Head and Neck Magnetic Resonan ce 04/27/2025 7:12 PM EDT Impressions 04/27/2025 7:16 PM EDT No acute territorial infarct, mass effect, or intracranial hemorrhage. -------- FINAL REPORT -------- Dictated By: Rafita Vyas Dictated Date: 04/27/2025 19:12 ET Assigned Physician: Rafita Vyas Reviewed and Electronically Signed By: Rafita Vyas Signed Date: 04/27/2025 19:16 ET Workstation ID: [id number] Transcribed By: Self Edit Transcribed Date: 04/27/2025 19:12 ET Narrative 04/27/2025 7:16 PM EDT HISTORY: TERRELL's. TECHNIQUE: Routine MRI of the brain without contrast. COMPARISON: None available. FINDINGS: No acute territorial infarct, mass effect, or intracranial hemorrhage. Left middle cranial fossa cysts. No significant white matter disease Symmetric parenchymal volume loss. CSF spaces commensurate for degree of atrophy. No hydrocephalus. Visualized paranasal sinuses are clear. Mastoid air cells are clear. No calvarial fracture. Lens implants. Procedure Note Rafita Vyas MD - 04/27/2025 HISTORY: TERRELL's. TECHNIQUE: Routine MRI of the brain without contrast. COMPARISON: None available. FINDINGS: No acute territorial infarct, mass effect, or intracranial hemorrhage.Left middle cranial fossa cysts. No significant white matter disease Symmetric parenchymal volume loss. CSF spaces commensurate for degree ofatrophy. No hydrocephalus. Visualized paranasal sinuses are clear. Mastoid air cells are clear. No calvarial fracture. Lens implants. IMPRESSION: No acute territorial infarct, mass effect, or intracranial hemorrhage. -------- FINAL REPORT -------- Dictated By: Rafita Vyas Dictated Date: 04/27/2025 19:12 ET Assigned Physician: Rafita Vyas Reviewed and Electronically Signed By: Rafita Vyas Signed Date: 04/27/2025 19:16 ET Workstation ID: [id number] Transcribed By: Self Edit Transcribed Date: 04/27/2025 19:12 ET us Caitlin Valentin MD IMG MRI PROCEDURES Final Result * Vascular US duplex carotid bilateral (04/13/2025 9:42 AM EDT) Anatomical Region Laterality Modality Vascular, Abdomen Ultrasound 04/20/2025 4:26 PM EDT Impressions 04/20/2025 4:27 PM EDT No evidence of hemodynamically significant stenosis. -------- FINAL REPORT -------- Dictated By: Hussein Aviles Dictated Date: 04/20/2025 16:26 ET Assigned Physician: Hussein Aviles Reviewed and Electronically Signed By: Hussein Aviles Signed Date: 04/20/2025 16:27 ET Workstation ID: [id number] Transcribed By: Self Edit Transcribed Date: 04/20/2025 16:26 ET Narrative 04/20/2025 4:27 PM EDT INDICATION: Episodic lightheadedness FINDINGS: Duplex and color images are obtained of the extracranial carotid arterial systems bilaterally. No prior studies are available for comparison. No significant atherosclerotic plaque. Normal velocities and waveforms noted bilaterally. There are normal end diastolic velocities bilaterally with antegrade flow in both vertebral arteries. Procedure Note Hussein Aviles MD - 04/20/2025 INDICATION: Episodic lightheadedness FINDINGS: Duplex and color images are obtained of the extracranial carotidarterial systems bilaterally. No prior studies are available forcomparison. No significant atherosclerotic plaque. Normal velocities and waveformsnoted bilaterally. There are normal end diastolic velocities bilaterally with antegrade flowin both vertebral arteries. IMPRESSION: No evidence of hemodynamically significant stenosis. -------- FINAL REPORT -------- Dictated By: Hussein Aviles Dictated Date: 04/20/2025 16:26 ET Assigned Physician: Hussein Aviles Reviewed and Electronically Signed By: Hussein Aviles Signed Date: 04/20/2025 16:27 ET Workstation ID: [id number] Transcribed By: Self Edit Transcribed Date: 04/20/2025 16:26 ET Cora SAUNDERS CV VASCULAR PROCEDURES Final Result * Gastrointestinal pathogens molecular study (03/26/2025 1:07 PM EDT) Campylobacter Detection by PCR Not Detected Not Detected LAB MICROBIOLOGY METHOD 5 2:55 PM EDT [facility] Plesiomonas shigelloides Detection by PCR Not Detected Not Detected LAB MICROBIOLOGY METHOD 5 2:55 PM EDT [facility] Salmonella Detection by PCR Not Detected Not Detected LAB MICROBIOLOGY METHOD 5 2:55 PM EDT [facility] Vibrio Detection by PCR Not Detected Not Detected LAB MICROBIOLOGY METHOD 5 2:55 PM EDT [facility] Vibrio cholerae Detection by PCR Not Detected Not Detected LAB MICROBIOLOGY METHOD 5 2:55 PM EDT [facility] Yersinia enterocolitica Detection by PCR Not Detected Not Detected LAB MICROBIOLOGY METHOD 5 2:55 PM EDT [facility] Enteroaggregative E coli EAEC Detection by PCR Not Detected Not Detected LAB MICROBIOLOGY METHOD 5 2:55 PM EDT [facility] Enteropathogenic E coli EPEC Detection Not Detected Not Detected LAB MICROBIOLOGY METHOD 5 2:55 PM EDT [facility] Enterotoxigenic E coli ETEC LTST Detection Not Detected Not Detected LAB MICROBIOLOGY METHOD 5 2:55 PM EDT [facility] Shiga-like toxin producing E coli STEC STX1 STX2 Det Not Detected Not Detected LAB MICROBIOLOGY METHOD 5 2:55 PM EDT [facility] Shigella Enteroinvasive E coli EIEC Detection Not Detected Not Detected LAB MICROBIOLOGY METHOD 5 2:55 PM EDT [facility] Cryptosporidium Detection by PCR Not Detected Not Detected LAB MICROBIOLOGY METHOD 5 2:55 PM EDT [facility] Cyclospora cayetanensis Detection by PCR Not Detected Not Detected LAB MICROBIOLOGY METHOD 5 2:55 PM EDT [facility] Entamoeba histolytica Detection by PCR Not Detected Not Detected LAB MICROBIOLOGY METHOD 5 2:55 PM EDT [facility] Giardia lamblia Detection by PCR Not Detected Not Detected LAB MICROBIOLOGY METHOD 5 2:55 PM EDT [facility] Adenovirus F 40 41 Detection by PCR Not Detected Not Detected LAB MICROBIOLOGY METHOD 5 2:55 PM EDT [facility] Astrovirus Detection by PCR Not Detected Not Detected LAB MICROBIOLOGY METHOD 5 2:55 PM EDT [facility] Norovirus GI GII Detection by PCR Not Detected LAB MICROBIOLOGY METHOD 5 2:55 PM EDT [facility] Sapovirus Detection by PCR Not Detected Not Detected LAB MICROBIOLOGY METHOD 5 2:55 PM EDT [facility] Rotavirus A Detection by PCR Not Detected Not Detected LAB MICROBIOLOGY METHOD 5 2:55 PM EDT [facility] Stool Rectum structure / Unknown Non-blood Collection / Unknown 03/26/2025 1:07 PM EDT 03/26/2025 1:23 PM EDT Narrative [facility] - 03/26/2025 2:55 PM EDT PCR testing is much more sensitive than [...] additional guidance. Testing Performed by MULTIPLEXED PCR us Cora SAUNDERS LAB MICROBIOLOGY - GENERAL O RDERABLES Final Result [facility] [address] [place] [address], from Last 3 Months Insurance MEDICARE [facility] Care Teams Home Care Administrator Relationship Specialty Start Date End Date Daiana Clark PA [address] [place] [address] PCP - General 05/14/24
--- OUTSIDE RECORDS SUMMARY | 2025-06-22 13:07 | XMS_ITS | Patient Health Record ---
Author Organization [facility] Address [address] [place] [address] Care Team Providers Care Automation Tester Name Role Phone MORGAN JUAREZ, HORACIO Primary Care Provider UnavailPamela Rivers Unavailable [phone] RHONDA GARCIA Unavailable [phone] Allergies No Known Allergies Results Component Value Reference Range Notes Urinalysis Reviewed date:07/10/2024 12:20:45 PM Interpretation: Performing Lab: Notes/Report: NITRITE NEG PH 5.0 PROTEIN MOD S.G 1.015 WBC POSITIVE(MOD) GLUCOSE NEG KETONES NEG UROBILINOGEN NEG BILIRUBIN NEG BLOOD LARGE Urine Culture, Routine-[id number] Reviewed date:07/13/2024 04:00:51 PM Interpretation: Performing Lab:[facility] [address], [place], Phone - [phone], Director [facility] Notes/Report: Urine Culture, Routine Final report Result 1 Culture shows less than 10,000 colony forming units of bacteria per milliliter of urine. This colony count is not generally considered to be clinically significant. PDF Report Reviewed date:07/13/2024 08:35:59 AM Interpretation: Performing Lab:[facility] [address], [address], [place], Phone - [phone], Director - [facility] Notes/Report: Reason For Referral No Information Medications Medication SIG (Take, Route, Frequency, Duration) Notes Start Date End Date Status Rosuvastatin Calcium 5 MG Oral; Duration: 90 Days Active Estradiol 10 MCG 1 tablet Vaginal Two times a Week; Duration: 90 days 05/27/2024 Active Estradiol 10 MCG 1 tablet Vaginal THR EE TIMES PER WEEK; Duration: 90 days 06/22/2025 Active Multi-Vitamin Daily - 1 tablet Orally On ce a day Active AZO Cranberry PRN Active Glucosamine Chondr 500 Complex - as directed Orally Active Magnesium 250 MG 1 tablet with a meal Orally Once a day; Duration: 30 day(s) Active Fish Oil 1000 MG 1 capsule Orally Onc e a day; Duration: 30 day(s) Active Social [...] (Standard) Question Answer Notes Tobacco use: Nonsmoker Problems Problem Type SNOMED Code ICD Code Onset Dates Problem Status W/U Status Risk Notes Problem Postmenopausal atrophic vaginitis (40225772) Postmenopausal atrophic vaginitis (N95.2) Active confirmed Problem Candidiasis of mouth (24351899) Candidal stomatitis (B37.0) Active confirmed Problem Benign mammary dysplasia (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) Other benign mammary dysplasias of unspecified breast (N60.89) Active confirmed Problem Subacute and chronic vaginitis (N76.1) Active confirmed Problem Atrophy of vulva (312248246) Atrophy of vulva (N90.5) Active confirmed Problem 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, 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 Problem Candidal vulvovaginitis (68332150) Candidiasis of vulva and vagina (112.1) Active confirmed Other Problem Mastodynia (93830643) Mastodynia (611.71) Active confirmed Diag Problem Breast lump (62608158) Lump or mass in breast (611.72) Active confirmed Diag Problem Postmenopausal bleeding (21114003) Postmenopausal bleeding (627.1) Active confirmed Major Problem Menopausal symptom (74940337) Symptomatic menopausal or female climacteric states (627.2) Active confirmed Major Problem Postmenopausal atrophic vaginitis (73381124) Postmenopausal atrophic vaginitis (627.3) Active confirmed Diag Problem Gynecological examination normal (756022356011192) Routine gynecological examination (V72.31) Active confirmed Major Problem Screening for malignant neoplasm of colon (047579959) Special screening for malignant neoplasms, colon (V76.51) Active confirmed Major Vital Signs Temperature 97.5 degrees Fahrenheit 06/22/2025 Blood pressure diastolic 62 mm Hg 06/22/2025 Height 61.5 in 06/22/2025 Blood pressure systolic 118 mm Hg 06/22/2025 Weight 140 lbs 06/22/2025 BMI 26.02 kg/m2 06/22/2025 Encounters Encounter Location Date Provider Diagnosis [address] [address] 07/10/2024 RHONDA GARCIA Pelvic and perineal pain R10.2 and Mastodynia N64[address] [address] 06/22/2025 Pamela Walters Encounter for gynecological examination (general) (routine) without abnormal findings Z01.419 ; Encounter for screening mammogram for malignant neoplasm of breast Z12.31 ; Other specified disorders of bone density and structure, multiple sites M85.89 and Postmenopausal atrophic vaginitis N95.[address] [address] 04/26/2025 Pamela Walters Postmenopausal atrophic vaginitis N95.2 Assessments Encounter Date Diagnosis (ICD Code) Assessment Notes Treatment Notes Treatment Clinical Notes Section Notes 07/10/2024 Mastodynia (ICD-10 - N64.4) Discussed causes of breast tenderness including starting new vaginal hormones and muscle strain. Discussed that as the atrophy resolves, the breast tenderness will usually resolve as well. Reviewed relief measures including analgesics, rest and local heat as needed. Discussed importance of supportive bra. Breast self-exam is taught and encouraged 07/10/2024 Pelvic and perineal pain (ICD-10 - R10.2) Will rule out UTI and have her take plenty of fluids orally , AZO as needed , Tylenol 3-4 times a day as needed , Call if not better. The vaginal burning is still likely due to atrophy, and I encouraged her to continue using the vaginal estradiol tablets. She also plans to return to using the Vitamin E suppositories, as it has helped her in the past. 04/26/2025 Postmenopausal atrophic vaginitis (ICD-10 - N95.2) 06/22/2025 Encounter for gynecological examination (general) (routine) [...] - N95.2) CONITNUE ESTRADIOL TABS AND LUBRICANTS. 07/10/2024 Other Plan Of Treatment Pending Test Test Name Order Date MAMMOGRAM, SCREENING 06/27/2016 MAMMOGRAM, SCREENING 06/30/2018 MAMMOGRAM, SCREENING 07/13/2020 MAMMOGRAM, SCREENING 07/14/2021 MAMMOGRAM, SCREENING 07/05/2022 MAMMOGRAM, SCREENING 06/22/2025 Urinalysis 02/27/2021 Urinalysis 04/21/2021 Urinalysis 07/10/2021 Urinalysis 03/17/2020 MRI : Lumbar Spine with and without Cont rast 06/23/2019 ONE SWAB 07/30/2022 ONE SWAB 06/27/2016 ONE SWAB 11/09/2016 ONE SWAB 04/05/2015 ONE SWAB 10/24/2015 ONE SWAB 04/21/2021 ONE SWAB 01/16/2022 COMPLETE URINALYSIS 08/03/2022 URINE CULTURE 08/03/2022 URINE CULTURE 02/27/2021 BONE DENSITY 06/22/2025 BONE DENSITY 07/14/2021 BONE DENSITY 07/05/2022 BONE DENSITY 06/30/2018 BONE DENSITY 07/13/2020 MM Digital Mammo Screening 07/13/2020 MM Digital Mammo Screening 07/05/2022 MM Digital Mammo Screening 07/14/2021 MM Digital Mammo Screening 06/22/2025 COMPLETE URINALYSIS 01/11/2016 Next Appt Details Provider Name:Pamela english, 06/29/2026 11:00:00 AM, [address], [address], [place], [address], Insurance Providers Payer Name Payer Address Payer Phone Subscriber Number Group Number Insured Name Patient Relationship to Insured Coverage Start Date Coverage End Date MEDICARE [address] [place] [id number] [phone] [id number] RASHMI KENDRICK Self - patient is the insured [employer] [address] [place], [place] [id number] RASHMI KENDRICK Self - patient is the insured Medical (General) History Medical History History ICD Code Postmenopausal bleeding N95.0 Postmenopausal atrophic vaginitis N95.2 Unspecified lump in breast N63 Mastodynia N64.4 Menopausal and female climacteric states N95.1 Candidiasis of vulva and vagina B37.3 Other benign mammary dysplasias of unspe cified breast N60.89 Subacute and chronic vaginitis N76.1 Pelvic and perineal pain R10.2 Noninflammatory disorder of vagina, unsp ecified N89.9 Other benign neoplasm of skin of scalp a nd neck D23.4 Left lower quadrant pain R10.32 Other specified disorders of bone densit y and structure, multiple sites M85.89 Dense breasts, unspecified R92.30 Dense breasts, unspecified R92.30 Mammographic heterogeneous density, bila teral breasts R92.333 Mammographic fibroglandular density, rachel ateral breasts R92.323 Surgical History Surgery Date(Month/Year) Appendectomy Bilateral Oopherectomy Bilateral Vein Stripping Colonoscopy Cataract surgery 2016 MRI Guided Left Breast Biopsy Cataracts Surgery 10/2016 Vaginal rejuvenation 2021 Hospitalization History Reason Date(Month/Year) Hospitalized for Vertigo 03/2017 See Surgical Hx 2 Vaginal Deliveries
--- OUTSIDE RECORDS SUMMARY | 2025-06-22 13:07 | XMS_ITS | Clinical Summary ---
Author Organization [facility] Address [address] [place], [place] [id number] Phone Care Team Providers Care Mechanotherapist Name Role Phone Caitlin Valentin MD Primary Care Provider Social History Tobacco Use Types Packs/Day Years Used Date Smoking Tobacco: Never Assessed Comments Unknown Sex and Gender Information Value Date Recorded Sex Assigned at Female 03/21/2020 9:58 AM EDT Legal Sex Female 9:48 AM EDT Gender Identity Female 03/21/2020 9:58 AM EDT Sexual Orientation Straight 03/21/2020 9: 58 AM EDT Plan of Treatment Not on file Medical Devices Not on file Insurance MEDICARE PART A & B [employer] MEDIC[employer] ENHANCE SUPPLEMENT [facility] Address: [facility] [id number] [place] [id number] MEDICARE PART A & B [employer] MEDIC[employer] ENHANCE SUPPLEMENT [facility] Address: [facility] [id number] [place] [id number] MEDICARE PART A & B MEDICARE ENHANCE SUPPLEMENT MEDICARE PART A & B [facility] MEDICARE ENHANCE SUPPLEMENT MEDICARE PART A & B [facility] MEDICARE ENHANCE SUPPLEMENT [facility] Address: [facility] [id number] [place] [phone] MEDICARE PART A & B [facility] MEDICARE ENHANCE SUPPLEMENT MEDICARE PART A & B [employer] MEDIC[employer] ENHANCE SUPPLEMENT [facility] Address: [facility] [id number] [place] [id number] MEDICARE PART A & B Member Subscriber Plan / Payer (Ef fective 2009-Present) Name:Sonal Meier Member ID:[id number] Relation to Subscriber:Self Name:Sonal Meier Subscriber ID:[id number] Payer ID:[id number] Group ID:Not on file Type:Medicare Address: [place] [id number] [facility] MEDICARE ENHANCE SUPPLEMENT MEDICARE PART A & B [facility] MEDICARE ENHANCE SUPPLEMENT Care Teams Mechanotherapist Relationship Specialty Start Date End Date Caitlin Valentin MD [address] [place] [phone] PCP - General Internal Medicine 03/21/20 Additional Source Comments The information contained in this document represents components of the legal health record. It is not the complete legal health record.[facility]
== END 2025-06-22 12:41 | disposition home or self-care (01) ==
LOC: HO.HSM 11:52
PROVIDERS: Visit Provider Psychiatry & Neurology Neurology
DX: E78.5 Hyperlipidemia, unspecified (principal); R51.9 Headache, unspecified; G51.32 Clonic hemifacial spasm, left
CPT/HCPCS: 99204; 99499

== ENCOUNTER 2025-06-23 08:07 | Outpatient (REF) | payer OTHER, MEDICARE, SELFPAY ==
--- OUTSIDE RECORDS SUMMARY | 2023-12-26 05:40 | XMS_ITS ---
Author Organization Total [facility] Address [address] [place] [address] Care Team Providers Care Photonic Laboratory Technician Name Role Phone MORGAN JUAREZ, HORACIO Primary Care Provider Pamela Vásquez Unavailable [phone] REASON FOR VISIT LR MEDICARE PE Encounters Encounter Location Date Provider Diagnosis [facility] [address] [place] [address] 12/26/2023 Pamela Walters Plan Of Treatment Next Appt Details Provider Name:Pamela english, 06/29/2026 11:00:00 AM, [address], [address], [place], [address], Progress Notes * RASHMI WAN HDOB:09/1944 (80 yo F)Acc No.[id number]:12/26/2023 PROGRESS NOTES Patient: Devin ORTIZALPANATALY MedinaKA Nedra Appointment Provider: Sarath Walters M.D. :1945 A ge:78 Y S ex:Female Date:12/26/2023 Address:[address] [place], [place] [id number] Pcp:HORACIO MORA MD Subjective: * Chief Complaints: * 1 . LR MEDICARE PE. * Medical History: Objective: * Vitals: Assessment: Plan: * Treatment: * Images: Billing Information: * Visit Code: * Procedure Codes: * Electronic signature of Joselin Walters MD on 06/23/2025 at 08:11 AM EST Sign off status: Pending * Appointment Provider: Sarath Walters M.D. Date: 0 12/26/2023 Generated for Shari alves/Toni/Fahad on: 1 08/24/2024 08:11 AM EST
--- OUTSIDE RECORDS SUMMARY | 2025-04-28 06:00 | XMS_ITS ---
Author Organization Total [facility] Address [address] [place] [address] Care Team Providers Care Shell Machine Operator Name Role Phone MORGAN JUAREZ, HORACIO Primary Care Provider Pamela Vásquez Unavailable [phone] REASON FOR VISIT TALK RE: BLOOD CHOLESTEROL??? Encounters Encounter Location Date Provider Diagnosis [facility] [address] [place] [address] 04/28/2025 Pamela Walters Plan Of Treatment Next Appt Details Provider Name:Pamela english, 06/29/2026 11:00:00 AM, [address], [address], [place], [address], Progress Notes * RASHMI WAN HDOB:09/1944 (80 yo F)Acc No.[id number]:04/28/2025 PROGRESS NOTES Patient: RASHMI GILMAN Appointment Provider: Sarath Walters M.D. :1945 A ge:79 Y S ex:Female Date:04/28/2025 Address:[address] [place] [address] [place], [place] Pcp:HORACIO MORA MD Subjective: * Chief Complaints: [...] Date: 1 Generated for Shari alves/Toni/Fahad on: 08/24/2024 08:11 AM EST
--- OUTSIDE RECORDS SUMMARY | 2025-06-22 04:40 | XMS_ITS ---
Author Organization Total [facility] [employer] [facility] Address [address] [place] [address] Care Team Providers Care Script Artist Name Role Phone MORGAN JUAREZ, HORACIO Primary Care Provider Pamela Vásquez Unavailable [phone] Allergies No Known Allergies REASON FOR VISIT Annual MARKETING ANALYTICS SPECIALIST Physical, Annual MARKETING ANALYTICS SPECIALIST Physical 60-85+ Medications Medication SIG (Take, Route, Frequency, Duration) Notes Start Date End Date Status Rosuvastatin Calcium 5 MG Oral; Duration: 90 Days Active Estradiol 10 MCG 1 tablet Vaginal Two times a Week; Duration: 90 days 05/27/2024 Active Multi-Vitamin Daily - 1 tablet Orally On ce a day Active AZO Cranberry PRN Active Fish Oil 1000 MG 1 capsule Orally Onc e a day; Duration: 30 day(s) Active Estradiol 10 MCG 1 tablet Vaginal THR EE TIMES PER WEEK; Duration: 90 days 06/22/2025 Active Glucosamine Chondr 500 Complex - as directed Orally Active Magnesium 250 MG 1 tablet with a meal Orally Once a day; Duration: 30 day(s) Active Social History Tobacco Use: Social History Observation Description Date Details (start date - stop date) Never Smoker NA - NA AUDIT-C (Standard) Question Answer Notes Did you have a drink contain ing alcohol in the past year? Yes How often did you have six o r more drinks on one occasion in the past year? Never (0 point) How many drinks did you have on a typical day when you were drinking in the past year? 1 or 2 drinks (0 point) How often did you have a dri nk containing alcohol in the past year? 2 to 3 times a week (3 points) Points 3 Interpretation Positive Tobacco Control (Standard) Question Answer Notes Tobacco use: Nonsmoker Vital Signs Temperature 97.5 degrees Fahrenheit 06/22/20 25 Blood pressure systolic 118 mm Hg 06/22/20 25 Blood pressure diastolic 62 mm Hg 025 Height 61.5 in 06/22/2025 Weight 140 lbs 06/22/2025 BMI 26.02 kg/m2 06/22/2025 Encounters Encounter Location Date Provider Diagnosis [address] [address] 06/22/2025 Pamela Romeo Encounter for gynecological examination (general) (routine) without abnormal findings Z01.419 ; Encounter for screening mammogram for malignant neoplasm of breast Z12.31 ; Other specified disorders of bone density and structure, multiple sites M85.89 and Postmenopausal atrophic vaginitis N95.2 Assessments Encounter Date Diagnosis (ICD Code) Assessment Notes Treatment Notes Treatment Clinical Notes Section Notes 06/22/2025 Encounter for gynecological examination (general) (routine) without abnormal findings (ICD-10 - Z01.419) NO MORE PAP TESTS. 06/22/2025 Encounter for screening mammogram for malignant neoplasm of breast (ICD-10 - Z12.31) REGULAR MAMMOGRAMS AND SBE'S WERE RECOMMENDED. 06/22/2025 Other specified disorders of bone density and structure, multiple sites (ICD-10 - M85.89) DISCUSSED OSTEOPENIA AND HER LAST BMD AND ITS IMPACT ON HER HEALTH. ADEQUATE CALCIUM AND VIT D. WEIGHT BEARING EXERCISES. REPEAT BMD IN 2025. 06/22/2025 Postmenopausal atrophic vaginitis (ICD-10 - N95.2) CONITNUE ESTRADIOL TABS AND LUBRICANTS. Plan Of Treatment Medication Medication Name Sig Start Date Stop Date Notes Estradiol 10 MCG 1 tablet Vaginal THR EE TIMES PER WEEK; Duration: 90 days 06/22/2025 Treatment Notes Assessment Notes Encounter for gynecological examination (general) (routine) without abnormal findings NO MORE PAP TESTS. Encounter for screening mamm ogram for malignant neoplasm of breast REGULAR MAMMOGRAMS AND SBE'S WERE RECOMMENDED. Other specified disorders of bone density and structure, multiple sites DISCUSSED OSTEOPENIA AND HER LAST BMD AND ITS IMPACT ON HER HEALTH. ADEQUATE CALCIUM AND VIT D. WEIGHT BEARING EXERCISES. REPEAT BMD IN 2025. Postmenopausal atrophic vaginitis CONITN UE ESTRADIOL TABS AND LUBRICANTS. Pending Test Test Name Order Date MAMMOGRAM, SCREENING 06/22/2025 BONE DENSITY 06/22/2025 MM Digital Mammo Screening 06/22/2025 Next Appt Details Follow Up: 1 Year, Reason: Provider Name:Pamela english, 06/29/2026 11:00:00 AM, [address], [address], [place], [address], Progress Notes * SAVAGENATALYKA HDOB:09/1944 (80 yo F)Acc No.[id number]:06/22/2025 PROGRESS NOTES Patient: RASHMI GILMAN Appointment Provider: Sarath Walters M.D. :1945 A ge:80 Y S ex:Female Date:06/22/2025 Address:[address] [place], [place] [id number] Pcp:HORACIO MORA MD Subjective: * Chief Complaints: * Annual MARKETING ANALYTICS SPECIALIST PhysicalAnnual MARKETING ANALYTICS SPECIALIST Physical 60-85+ * HPI: N ew/Follow-up Patient Consult: EMMA UNDERWENT BSO IN HER 30'S FOR BENIGN CYSTS. SHE WAS NOT PLACED ON HRT. SHE HAS C/O VAGINAL DRYNESS AND DYSPAREUNIA FOR YEARS AND UNDERWENT MARI RHONDA LASER TREATMENT IN [place] IN 2021 WITH NO RELIEF OF SYMPTOMS. SHE HAS TRIED ESTRADIOL CREAM WHICH CAUSED BREAST TENDERNESS. SHE USED PREMARIN CREAM WHICH SHE SAYS SHE IS ALLERGIC TO. SHE IS NOW USING ESTRADIOL TABS TWICE WEEKLY AND VIT E GELTABS. SHE HAS BEEN WITH THE SAME PARTNER FOR DECADES AND HAS HAD DYSPAREUNIA ISSUES MENTIONED ABOVE. LEFT BREAST BIOPSY DONE IN 2012 SHOWED ADH AND ALH. SHE COULD NOT TOLERATE ANTIESTROGENS.? SHE IS BEING FOLLOWED AT [facility]. SHE SUFFERED A SUBDURAL HEMATOMA IN 2019 AND HAS FULLY RECOVERED. HER LAST MAMMOGRAM DONE IN DECEMBER 2024 SHOWED BREASTS ARE NOT DENSE AND WAS NORMAL. HER LAST PAP TEST IN 2013 WAS NEGATIVE AND HPV NEGATIVE. SHE HAS NO HX OF ABNORMAL PAP TESTS. HER LAST BMD IN 2022 SHOWED THE LOWEST T-SCORE TO BE -1.9 AT THE FEMORAL NECK. THIS WAS -1.6 IN 2015. SHE HAS NO HX OF FRACTURES. SHE HAD COLOGUARD TESTING DONE IN 2021. A nnual: Patient presents for annual exam, ages 60-85, postmenopausal. General Health Maintenance: C urrent breast complaints: n o breast pain, mass, discharge, or skin changes U rinary problems: p atient reports no urinary health problems or bowel health problems C alcium intake: t akes adequate calcium via diet and supplementation S ignificant MARKETING ANALYTICS SPECIALIST problems: n o significant management engineer symptoms or problems * ROS: g eneral: no c hest pain. n o p alpitations. n o h eadache. n o c ough. n o s hortness of breath. n o f ever. n o u nexplained weight loss. n o n ausea/vomiting. n o c hange in bowel movements. n o blood in stool. n o g enitourinary complaints. n o s kin complaints. ? * Medical History: * Recreational Aide History: G ravida/ Para 4 /2. S exual activity c urrently sexually active. L ast Pap Smear: 08/2013 , neg, NEG HRHPV. M ammogram: 50-75% density, 07/11/23 < 50% density, 08/25/21 < 50% density, 01/11/20 < 50% density, 07/16/17 Rt Diag/Lt Screen < 50% density, 01/09/17 Unilateral Right, 05/18/2016 Bilateral Breast MRI, with Lt Breast Bx, 06/27/2015 Diagnostic Bilateral. 03/16/15 Left Breast Biopsy, Negative, 01/2015 Bilateral Breast MRI. L MP and menses M devin. B irth Control: N /a. C olonoscopy y es 2008. B one Density: , 03/2013. * OB History: T otal pregnancies 4 . T otal living children 2 . N VD 2 . M iscarriage(s) 2 . * Surgical History: A ppendectomy Bilateral Oopherectomy Bilateral Vein Stripping Colonoscopy Cataract surgery 2016MRI Guided Left Breast Biopsy Cataracts Surgery 10/2016Vaginal rejuvenation 2021 * Hospitalization/Major Diagno stic Procedure: 2 Vaginal Deliveries See Surgical Hx Hospitalized for Vertigo 03/2017 * Family History: M other: alive. F ather: 86 yrs, prostate cancer. M aternal aunt: breast cancer. Brother: Lung Cancer. * Social History: T obacco Use: T obacco Control (Standard) T obacco use: N onsmoker S exual History: S exual History H ad sex in the past 12 months (vaginal, oral, or anal)?: Yes, with: Men only, Prevention strategies discussed:: Other. Details of Sexual History A re you sexually active? Y es D rugs/Alcohol: D rugs H ave you used drugs other than those for medical reasons in the past 12 months? N o M iscellaneous: C hildren: yes. Domestic violence: no. Exercise: yes. Home smoke detector use: yes. Marital status: . Natural support system: yes. Occupation: Retired. Sexual abuse: no. Sexually active: yes, monogamous relationship. Verbal abuse: no. D rug/Alcohol: A THAIS-C (Standard) D id you have a drink containing alcohol in the past year? Y es H ow often did you have six or more drinks on one occasion in the past year? N ever (0 point) H ow many drinks did you have on a typical day when you were drinking in the past year? 1 or 2 drinks (0 point) H ow often did you have a drink containing alcohol in the past year? 2 to 3 times a week (3 points) P oints 3 I nterpretation P ositive * Medications: T akingFish Oil 1000 MG Capsule 1 capsule Orally Once a day Glucosamine Chondr 500 Complex - Capsule as directed Orally Magnesium 250 MG Tablet 1 tablet with a meal Orally Once a day Multi-Vitamin Daily - Tablet 1 tablet Orally Once a day AZO Cranberry , Notes to Pharmacist: PRNRosuvastatin Calcium 5 MG Tablet Oral Estradiol 10 MCG Tablet 1 tablet Vaginal Two times a Week Medication List reviewed and reconciled with the patientTaking Fish Oil 1000 MG Capsule 1 capsule Orally Once a day Taking Glucosamine Chondr 500 Complex - Capsule as directed Orally Taking Magnesium 250 MG Tablet 1 tablet with a meal Orally Once a day Taking Multi- Vitamin Daily - Tablet 1 tablet Orally Once a day Taking AZO Cranberry , Notes to Pharmacist: PRNTaking Rosuvastatin Calcium 5 MG Tablet Oral Taking Estradiol 10 MCG Tablet 1 tablet Vaginal Two times a Week Medication List reviewed and reconciled with the patient * Allergies: N .K.D.A.no[Allergies Verified] Objective: * Vitals: H t: 61.5 in, Wt: 140 lbs, BMI:26.02Index, BP: 118/62 mm Hg, Temp: 97.5 F. * Examination: G eneral Exam: CONSTITUTIONAL: G eneral Appearance: a lert, in no acute distress, normal, well nourished NECK/THYROID: I nspection/Palpation: n ormal T hyroid: n ormal size and shape RESPIRATORY: A uscultation: clear to auscultation bilaterally, Respiratory Effort: normal. CARDIOVASCULAR: A uscultation: regular rate and rhythm.? BREAST, Right: I nspection/Palpation: n o discharge, no masses present, no nipple retraction, no skin changes, no skin dimpling, no tenderness, no lymphadenopathy, no axillary mass, no axillary tenderness BREAST, Left: I nspection/Palpation: n o discharge, no masses present, no nipple retraction, no skin changes, no skin dimpling, no tenderness, no lymphadenopathy, no axillary mass, no axillary tenderness GASTROINTESTINAL: A bdomen: n o masses, nontender, nondistended L iver and Spleen: n ormal H ernias: n o hernias present, no inguinal adenopathy MUSCULOSKELETAL: I nspection/Palpation: n o clubbing, cyanosis, or edema SKIN: S kin: n ormal NEURO/PSYCH: O rientation: t lamont , place, person M ood/Affect: n ormal G enitourinary: EXTERNAL GENITALIA: E xternal Genitalia: n ormal, no lesions VAGINA: V agina: n ormal appearance, no abnormal discharge, no lesions BLADDER: B ladder: n o mass, nontender URETHRA: U rethra: n o erythema or lesions present CERVIX: C ervix: n o lesions, nontender UTERUS: U terus: n ontender, normal contour, normal mobility, normal size ADNEXA: A dnexa: s urgically absent ANUS AND PERINEUM: A nus/Perineum: v isually normal Assessment: * Assessment: 1. E ncounter for gynecological examination (general) (routine) without abnormal findings - Z01.419 (Primary) 2 . E ncounter for screening mammogram for malignant neoplasm of breast - Z12.31 3 . O ther specified disorders of bone density and structure, multiple sites - M85.89 4 . P ostmenopausal atrophic vaginitis - N95.2 ? Plan: * Treatment: 2. E ncounter for screening mammogram for malignant neoplasm of breast I maging: MM Digital Mammo Screening Notes: REGULAR MAMMOGRAMS AND SBE'S WERE RECOMMENDED. 3. O ther specified disorders of bone density and structure, multiple sites I maging: BONE DENSITY Notes: DISCUSSED OSTEOPENIA AND HER LAST BMD AND ITS IMPACT ON HER HEALTH. ADEQUATE CALCIUM AND VIT D. WEIGHT BEARING EXERCISES. REPEAT BMD IN 2025.??4.?Postmenopausal atrophic vaginitis? Start Estradiol Tablet, 10 MCG, 1 tablet, Vaginal, THREE TIMES PER WEEK, 90 days, 36 Tablet, Refills 4.?? Notes: CONITNUE ESTRADIOL TABS AND LUBRICANTS.?? * Imaging: * I maging: MAMMOGRAM, SCREENING * Procedure Codes: 9 9459 PELVIC EXAMINATION * Preventive Medicine: YOUR PREVENTIVE WELLNESS PLAN: O steoporosis prevention C alcium, D, strength training. B reast Cancer Screening (Mammogram): a nnually. C ervical Cancer Screening (Pap Smear): q 3 years with HPV screen. C olorectal Cancer Screening: q 10 years. * Follow Up: 1 Year * Images: Billing Information: * Visit Code: [id number] Preventive Care Est Pt. Age 65 and over. * Procedure Codes: 99637 PELVIC EXAMINATION. * Sign off status: Completed true * Appointment Provider: Sarath Walters M.D. Date: 08/23/2024 Generated for Shari alves/Toni/Maryitting on: 08/24/2024 08:12 AM EST History and Physical Notes * HPI (History of Present Illness) Category Sub-Category Detail Notes Category Not es New/Follow-up Patient Consult PAT UNDERWENT BSO IN HER 30'S FOR BENIGN CYSTS. SHE WAS NOT PLACED ON HRT. SHE HAS C/O VAGINAL DRYNESS AND DYSPAREUNIA FOR YEARS AND UNDERWENT MARI RHONDA LASER TREATMENT IN [place] IN 2021 WITH NO RELIEF OF SYMPTOMS. SHE HAS TRIED ESTRADIOL CREAM WHICH CAUSED BREAST TENDERNESS. SHE USED PREMARIN CREAM WHICH SHE SAYS SHE IS ALLERGIC TO. SHE IS NOW USING ESTRADIOL TABS TWICE WEEKLY AND VIT E GELTABS. SHE HAS BEEN WITH THE SAME PARTNER FOR DECADES AND HAS HAD DYSPAREUNIA ISSUES MENTIONED ABOVE. LEFT BREAST BIOPSY DONE IN 2012 SHOWED ADH AND ALH. SHE COULD NOT TOLERATE ANTIESTROGENS. SHE IS BEING FOLLOWED AT [facility]. SHE SUFFERED A SUBDURAL HEMATOMA IN 2019 AND HAS FULLY RECOVERED. HER LAST MAMMOGRAM DONE IN DECEMBER 2024 SHOWED BREASTS ARE NOT DENSE AND WAS NORMAL. HER LAST PAP TEST IN 2013 WAS NEGATIVE AND HPV NEGATIVE. SHE HAS NO HX OF ABNORMAL PAP TESTS. HER LAST BMD IN 2022 SHOWED THE LOWEST T-SCORE TO BE -1.9 AT THE FEMORAL NECK. THIS WAS -1.6 IN 2015. SHE HAS NO HX OF FRACTURES. SHE HAD COLOGUARD TESTING DONE IN 2021. Annual General Health Maintenance: Current breast complaints:: no breast pain, mass, discharge, or skin changes Urinary problems:: patient r eports no urinary health problems or bowel health problems Calcium intake:: takes adequ ate calcium via diet and supplementation Significant MARKETING ANALYTICS SPECIALIST problems:: n o significant management engineer symptoms or problems Examination Category Sub-Category Detail Notes Category Not es General Exam CONSTITUTIONAL: General Appearan ce:: alert, in no acute distress, normal, well nourished NECK/THYROID: Thyroid:: normal size and shape Inspection/Palpation:: normal RESPIRATORY: Auscultation: clear to auscultation bilaterally, Respiratory Effort: normal CARDIOVASCULAR: Auscultation: regula r rate and rhythm GASTROINTESTINAL: Hernias:: no hernias present, no inguinal adenopathy Liver and Spleen:: normal Abdomen:: no masses, nontender, nondiste nded MUSCULOSKELETAL: Inspection/Palpation:: no clubb ing, cyanosis, or edema SKIN: Skin:: normal NEURO/PSYCH: Mood/Affect:: normal Orientation:: time , place, person BREAST, Right: Inspection/Palpation :: no discharge, no masses present, no nipple retraction, no skin changes, no skin dimpling, no tenderness, no lymphadenopathy, no axillary mass, no axillary tenderness BREAST, Left: Inspection/Palpation :: no discharge, no masses present, no nipple retraction, no skin changes, no skin dimpling, no tenderness, no lymphadenopathy, no axillary mass, no axillary tenderness Genitourinary EXTERNAL GENITALIA: External Genitalia:: nor mal, no lesions VAGINA: Vagina:: normal appearance, no a bnormal discharge, no lesions BLADDER: Bladder:: no mass, nontender URETHRA: Urethra:: no erythema or lesions present CERVIX: Cervix:: no lesions, nontender UTERUS: Uterus:: nontender, normal conto ur, normal mobility, normal size ADNEXA: Adnexa:: surgically absent ANUS AND PERINEUM: Anus/Perineum:: visually norm al
--- OUTSIDE RECORDS SUMMARY | 2025-06-23 08:11 | XMS_ITS | Clinical Summary ---
Author Organization [address] [facility] Address [address] [place] [address] Phone Care Team Providers Care State Tested Nursing Assistant Name Role Phone Daiana Clark Primary Care Provider [phone] Encounters Date Type Department Care Team Description 04/27/2025 2:50 PM EDT - 04/27/2025 11:59 PM EDT Hospital Encounter [facility] MRI [address] [place] [address] Headache, unspecified Discharge Disposition: Home or Self Care 04/27/2025 2:50 PM EDT - 04/27/2025 11:59 PM EDT Hospital Encounter [facility] MRI [address] [place] [address] Headache, unspecified Discharge Disposition: Home or Self Care 04/27/2025 2:47 PM EDT - 04/27/2025 11:59 PM EDT Hospital Encounter [facility] MRI [address] [place] [address] Headache, unspecified Discharge Disposition: Home or Self Care 04/13/2025 9:10 AM EDT - 04/13/2025 11:59 PM EDT Hospital Encounter [facility] Ultrasound [address] [place] [address] Episodic lightheadedness Discharge Disposition: Home or Self [...] Signed Date: 04/30/2025 13:08 ET Workstation ID: [id number] Transcribed By: Self Edit Transcribed Date: 04/30/2025 12:20 ET Narrative 04/30/2025 1:08 PM EDT Procedure: MR angiogram of the neck. HISTORY: Headaches. COMPARISON: None. TECHNIQUE: Contrast-enhanced as well as 2-D and 3-D shta-nv-gbtqvl MR angiogram of the neck. IV contrast [...] Contrast-enhanced as well as 2-D and 3-D oemb-ne-xcadwc MRangiogram of the neck. IV contrast dose: [...] Signed Date: 04/30/2025 13:08 ET Workstation ID: [id number] Transcribed By: Self Edit Transcribed Date: 04/30/2025 12:20 ET Caitlin Valentin MD [facility] MRI PROCEDURES Final Result * MR Angio Head wo Contrast (04/27/2025 4:19 PM EDT) Anatomical Region Laterality Modality Head and Neck Magnetic Resonan ce 04/30/2025 12:0 9 PM EDT Impressions 04/30/2025 1:07 PM EDT Normal MR angiogram of the pal[place]. -------- FINAL REPORT -------- Dictated By: Azeem Min Dictated Date: 04/30/2025 12:09 ET Assigned Physician: Azeem Min Reviewed and Electronically Signed By: Azeem Min Signed Date: 04/30/2025 13:07 ET Workstation ID: [id number] Transcribed By: Self Edit Transcribed Date: 04/30/2025 12:10 ET Narrative 04/30/2025 1:07 PM EDT PROCEDURE: MR angiogram of the [place] without contrast. HISTORY: Headaches. COMPARISON: None. TECHNIQUE: 3-D ejae-gp-iqrtyd MR angiogram of the [place] with MIP reformats. Limited whole brain imaging performed with diffusion weighted and axial T2-weighted images. FINDINGS: The V4 segments are codominant and widely patent. The basilar artery and both director of blood are widely patent. Diminutive left posterior communicating artery. No visible right posterior communicating artery. The carotid siphons, middle cerebral arteries, anterior cerebral arteries are widely patent. There is no evidence of an aneurysm or vascular malformation. Procedure Note Azeem Min MD - 04/30/2025 PROCEDURE: MR angiogram of the [place] without contrast. HISTORY: Headaches. COMPARISON: None. TECHNIQUE: 3-D pyeu-uj-nlyiof MR angiogram of the [place] withMIP reformats. Limited whole brain imaging performed with diffusionweighted and axial T2- weighted images. FINDINGS: The V4 segments are codominant and widely patent. The basilar artery and both director of blood are widely patent. Diminutive left posterior communicating artery. No visible rightposterior communicating artery. The carotid siphons, middle cerebral arteries, anterior cerebral arteriesare widely patent. There is no evidence of an aneurysm or vascular malformation. IMPRESSION: Normal MR angiogram of the pal[place]. -------- FINAL REPORT -------- Dictated By: Azeem Min Dictated Date: 04/30/2025 12:09 ET Assigned Physician: Azeem Min Reviewed and Electronically Signed By: Azeem Min Signed Date: 04/30/2025 13:07 ET Workstation ID: [id number] Transcribed By: Self Edit Transcribed Date: 04/30/2025 [...] Signed Date: 04/27/2025 19:16 ET Workstation ID: [id number] Transcribed By: Self Edit Transcribed Date: 04/27/2025 [...] Signed Date: 04/27/2025 19:16 ET Workstation ID: [id number] Transcribed By: Self Edit Transcribed Date: 04/27/2025 [...] Signed Date: 04/20/2025 16:27 ET Workstation ID: [id number] Transcribed By: Self Edit Transcribed Date: 04/20/2025 [...] Signed Date: 04/20/2025 16:27 ET Workstation ID: [id number] Transcribed By: Self Edit Transcribed Date: 04/20/2025 [...] Final Result [facility] [address] [place] [address], from Last 3 Months Insurance MEDICARE [facility] Care Teams State Tested Nursing Assistant Relationship Specialty Start Date End Date Daiana Clark PA [address] [place] [address] PCP - General 05/14/24
--- OUTSIDE RECORDS SUMMARY | 2025-06-23 08:12 | XMS_ITS | Patient Health Record ---
Author Organization [facility] [address] [address] Address [address] [place] [address] Care Team Providers Care Applications Engineering Manager Name Role Phone HORACIO VALENTIN Primary Care Provider DARIEL THOMPSON Unavailable [phone] TANIKA REED Unavailable [phone] Normoyle, Abimael Unavailable [phone] Allergies Allergen (clinical drug ingredient) Drug/Non Drug Allergy documented on EMR Reaction Allergy Type Onset Date Status benzonatate Benzonatate rash Drug Allergy Act antoine Results Component Value Reference Range Flag Notes MR ANGIO NECK WO AND W CONTR AST Reviewed date:05/03/2025 03:54:21 PM Interpretation: Performing Lab: Notes/Report: Note See Note [facility], a member of [facility] Patient Name: SONAL WAN Date of : 1945 Reason for Exam: TERRELL's Exam Date: 04/27/2025 [id number] EST Report Status: Final Ordering Provider: HORACIO VALENTIN PCP: TANIKA REED Procedure: MR angiogram of the neck. HISTORY: Headaches. COMPARISON: None. TECHNIQUE: Contrast-enhanced as well as 2-D and 3-D grem-wi-ddyyjw MR angiogram of the neck. IV contrast [...] Signed Date: 04/30/2025 13:08 ET Workstation ID: [id number] Transcribed By: Self Edit Transcribed Date: 04/30/2025 12:20 ET MR ANGIO HEAD WO CONTRAST Reviewed date:05/03/2025 03:54:21 PM Interpretation: Performing Lab: Notes/Report: Note See Note [facility], a member of [facility] Patient Name: SONAL WAN Date of : 1945 Reason for Exam: TERRELL's Exam Date: 04/27/2025 [id number] EST Report Status: Final Ordering Provider: HORACIO VALENTIN PCP: TANIKA REED PROCEDURE: MR angiogram of the [place] without contrast. HISTORY: Headaches. COMPARISON: None. TECHNIQUE: 3-D abpy-mn-zbysjw MR angiogram of the [place] with MIP reformats. Limited whole brain imaging performed with diffusion weighted and axial T2-weighted images. FINDINGS: The V4 segments are codominant and widely patent. The basilar artery a nd both clinical athletic instructor are widely patent. Diminutive left posterior communicating artery. No visible right posterior communicating artery. The carotid siphons, middle cerebral arteries, anterior cerebral arteries are widely patent. There is no evidence of an aneurysm or vascular malformation. IMPRESSION: Normal MR angiogram of the [place]. -------- FINAL REPOR T -------- Dictated By: Azeem Min Dictated Date: 04/30/2025 12:09 ET Assigned Physician: Azeem Min Reviewed and Electronically Signed By: Azeem Min Signed Date: 04/30/2025 13:07 ET Workstation ID: [id number] Transcribed By: Self Edit Transcribed Date: 04/30/2025 12:10 ET VAS US DUPLEX CAROTID BILATE RAL Reviewed date:04/21/2025 03:05:14 PM Interpretation: Performing Lab: Notes/Report: Note See Note [facility], a member of [facility] Patient Name: SONAL WAN Date of : 1945 Reason for Exam: episodic lightheadness Exam Date: 04/13/2025 [id number] EST Report Status: Final Ordering Provider: ABIMAEL [...] Signed Date: 04/20/2025 16:27 ET Workstation ID: [id number] Transcribed By: Self Edit Transcribed Date: 04/20/2025 16:26 ET GASTROINTESTINAL PATHOGENS M OSMIN STUDY Reviewed date:03/29/2025 02:20:02 PM Interpretation: Performing [...] Detection by PCR Not Detected Not Detected MR BRAIN WO CONTRAST Reviewed date:04/29/2025 10:06:19 AM Interpretation: Performing Lab: Notes/Report: Note See Note [facility], a member of [facility] Patient Name: SONAL WAN Date of : 1945 Reason for Exam: TERRELL's Exam Date: 04/27/2025 [id number] EST Report Status: Final Ordering Provider: HORACIO [...] Signed Date: 04/27/2025 19:16 ET Workstation ID: [id number] Transcribed By: Self Edit Transcribed Date: 04/27/2025 19:12 ET Comp. Metabolic Panel (14)-3 Reviewed date:07/14/2024 11:23:29 AM Interpretation: Performing Lab:[facility], [address], [place], Phone - [phone], Director - Jesus Notes/Report: Glucose 90 70-99 mg/dL BUN 11 [...] 0-40 IU/L ALT (SGPT) 9 0-32 IU/L Lipid Panel-[id number] Reviewed date:07/14/2024 11:33:40 AM Interpretation: Performing Lab:[facility] [place], [address] [facility], [place], Phone - [phone], Director - Jesus Notes/Report: Cholesterol, Total 198 100-199 mg/dL Triglycerides 76 0-149 mg/dL HDL Cholesterol 66 >39 mg/dL VLDL Cholesterol Jaime 14 5-40 mg/dL LDL Chol Calc (NIH) 118 0-99 mg/dL H CBC With Differential/Platel et-[id number] Reviewed date:07/14/2024 11:23:29 AM Interpretation: Performing Lab:[facility] [place], [address] [facility] [address] [facility] [address], [place], Phone - [phone], Director - Jesus Notes/Report: WBC 4.1 3.4-10.8 [...] % Immature Grans (Abs) 0.0 0.0-0.1 x10E3/uL COMPREHENSIVE METABOLIC PANE L Reviewed date:03/03/2025 08:39:45 [...] K/mcL Immature Granulocytes Absolute 0.02 0.00-0.03 K/mcL UA/M w/rflx Culture, Routine -[id number] Reviewed date:07/21/2024 09:42:46 AM Interpretation: Performing Lab:[facility] [place], [address] [facility], Phone - [phone], Director - Jesus Notes/Report: Specific Coyote 1.016 1.005-1.030 pH 6.5 5.0-7.5 Urine-Color Yellow [...] not generally considered to be clinically significant. Comp. Metabolic Panel (14)-3 53406 Reviewed date:03/23/2025 04:35:22 PM Interpretation: Performing Lab:[facility], [address] [facility] [address] [facility] [address], [place], Phone - [phone], Director - Jesus Notes/Report: Glucose 93 70-99 [...] IU/L ALT (SGPT) 10 0-32 IU/L Lipid Panel-[id number] Reviewed date:03/23/2025 04:35:22 PM Interpretation: Performing Lab:[facility], [address] [place] [address], Phone - [phone], Director - MDJodry Notes/Report: Cholesterol, Total 183 100-199 mg/dL Triglycerides 82 0-149 mg/dL HDL Cholesterol 72 >39 mg/dL VLDL Cholesterol Jaime 15 5-40 mg/dL LDL Chol Calc (NIH) 96 0-99 mg/dL Triiodothyronine (T3), Free- 200945 Reviewed date:03/23/2025 04:35:22 PM Interpretation: Performing Lab:[facility], [address] [place] [address], Phone - [phone], Director - MDJodry Notes/Report: Triiodothyronine (T3), Free 2.8 2.0-4.4 pg/mL CBC With Differential/Platel et-[id number] Reviewed date:03/23/2025 04:35:22 PM Interpretation: Performing Lab:[facility], [address] [place] [address], Phone - [phone], Director - MDJodry Notes/Report: WBC 4.9 3.4-10.8 [...] % Immature Grans (Abs) 0.0 0.0-0.1 x10E3/uL TSH-[id number] Reviewed date:03/23/2025 04:35:22 PM Interpretation: Performing Lab:[facility] [place], [address] [place] [address], Phone - [phone], Director - MDMajodry Notes/Report: TSH 1.950 0.450-4.500 uIU/mL Hemoglobin T2t-200815 Reviewed date:03/23/2025 04:35:22 PM Interpretation: Performing Lab:[facility] [place], [address] [place] [address], Phone - [phone], Director - MDJodry Notes/Report: Hemoglobin A1c 5.7 4.8-5.6 % H . Prediabetes: 5.7 - 6.4 Diabetes: >6.4 Glycemic control for adults with diabetes: <7.0 EKG (Not yet reviewed by pro vider) [...] 0 RR_NumNormalBeats 0 RR_SystolicBP 0 RR_SystolicBP 0 Reason For Referral Reason Diagnosis 1 Episodic lightheaded ness (R42) Referral Organization [facility] [address] Referring Provider First Name Abimael Referring Provider Last Name Jademorenita Referring Provider Speciality Internal M edicine Referred Provider Specialty Neurology General Notes Akosua Bajwa 08:38:43 AM > referral faxed to [phone] pt given phone [phone] Referral Priority Routine Medications Medication SIG (Take, [...] Status Risk Notes Problem Vitamin D deficiency (06793597) Vitamin D deficiency, unspecified (E55.9) Active confirmed Problem Mixed hyperlipidemia (710228861) Mixed hyperlipidemia (E78.2) Active confirmed Problem Atopic dermatitis (41480578) Atopic dermatitis, unspecified (L20.9) Active confirmed Problem Sciatica (83406905) Lumbago with sciatica, unspecified side (M54.40) Active confirmed Problem Adult health examination (797386597) Encounter for general adult medical examination without abnormal findings (Z00.00) Active confirmed Problem Vertigo (084933152) Vertigo (R42) Active confirmed Problem Annual health maintenance examination (77459755) Annual physical exam (Z00.00) Active confirmed Problem 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) Venous insufficiency (I87.2) Active confirmed Problem Seizure disorder (470392937) Seizure disorder (G40.909) Active confirmed Problem Transient ischemic attack (784377901) TIA (transient ischemic attack) (G45.9) Active confirmed Problem Burning mouth syndrome (128220824) 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) Active confirmed Problem Tension headache (116651076) Tension headache (G44.209) Active confirmed Problem Lipid screening (070149557) Lipid screening (Z13.220) Active confirmed Problem Hyperlipidemia (30994637) Hyperlipidemia (E78.5) Active confirmed Problem Congenital heart disease (76386052) Heart abnormality (Q24.9) Active confirmed Vital Signs Heart Rate 61 /min 04/15/2025 Oximetry 99 % 04/15/2025 Blood pressure diastolic 60 mm Hg 04/15/2025 Height 62 in 04/15/2025 Blood pressure systolic 124 mm Hg 04/15/2025 Weight 144.4 lbs 04/15/2025 BMI 26.41 kg/m2 04/15/2025 Encounters Encounter Location Date Provider Diagnosis [facility] [address] [facility] [address] [place] [address] 07/09/2024 HORACIO VALENTIN Annual physical exam Z00.00 ; Lipid screening Z13.220 and Encounter for immunization Z23 [facility] [address] [facility] [address] [place] [address] 03/02/2025 TANIKA REED Diarrhea, unspecifie d R19.7 ; TIA (transient ischemic attack) G45.9 ; Hyperlipidemia E78.5 and Encounter for examination of blood pressure without abnormal findings Z01.30 [facility] [address] [address] 03/19/2025 Abimael Normoyle Episodic lightheaded ness R42 ; Hx-TIA (transient ischemic attack) Z86.73 ; Mixed hyperlipidemia E78.2 and Encounter for examination of blood pressure without abnormal findings Z01.30 [facility] [address] [address] 03/25/2025 Abimael Normoyle Episodic lightheaded ness R42 ; Hx-TIA (transient ischemic attack) Z86.73 ; Mixed hyperlipidemia E78.2 ; Diarrhea, unspecified R19.7 and Encounter for examination of blood pressure without abnormal findings Z01.30 [facility] [address] [address] 04/01/2025 Abimael Normoyle Episodic lightheaded ness R42 ; Hx-TIA (transient ischemic attack) Z86.73 ; Mixed hyperlipidemia E78.2 and Encounter for examination of blood pressure without abnormal findings Z01.30 [facility] [address] [address] 04/15/2025 Abimeal Normoyle Episodic lightheaded ness R42 ; Hx-TIA (transient ischemic attack) Z86.73 ; Mixed hyperlipidemia E78.2 ; Hx of subdural hematoma Z86.79 ; Encounter for examination of blood pressure without abnormal findings Z01.30 and Acute nonintractable headache, unspecified headache type R51.[address] [facility] [address] [place] [address] 11/24/2024 DARIEL THOMPSON [facility] [address] [place], [place] 02/18/2025 TALAL VALENTIN [facility] [address] [place] [address] 02/23/2025 TALAL VALENTIN [facility] [address] [place] [address] [place] [address] 03/03/2025 TANIKACARMEN NAGELKS [facility] [address] [place] [address] [place] [address] 03/03/2025 TALAL VALENTIN [facility] [address] [place] [address] [place] [address] 03/18/2025 TALAL VALENTIN [facility] [address] [place] [address] 03/19/2025 Abimael Normoyle [facility] [address] [place] [address] [place] [address] 04/01/2025 TALAL VALENTIN [facility] [address] [place] [address] 04/08/2025 Abimael Normoyle Headache, unspecifie d R51.9 [facility] [address] [place] [address] [place] [address] 04/20/2025 Abimael Normoyle [facility] [address] [place] [address] 04/21/2025 Abimael Normoyle Headache, unspecifie d R51.9 [facility] [address] [place] [address] [place] [address] 04/21/2025 Abimael Normoyle [facility] [address] [place] [address] 05/03/2025 TALAL VALENTIN Assessments Encounter Date Diagnosis (ICD Code) Assessment Notes Treatment Notes Treatment Clinical Notes Section Notes 03/02/2025 Diarrhea, unspecified (ICD-10 - R19.7) Patient [...] Dictation was accomplished with the use of [employer] voice recognition software, which is prone to [...] Dictation was accomplished with the use of [employer] voice recognition software, which is prone to [...] Dictation was accomplished with the use of [employer] voice recognition software, which is prone to [...] Dictation was accomplished with the use of [employer] voice recognition software, which is prone to [...] rhythm, first degree AV block, rate 60. ME interval 220. QTc 432. No ST segment [...] Dictation was accomplished with the use of [employer] voice recognition software, which is prone to [...] rhythm, first degree AV block, rate 60. ME interval 220. QTc 432. No ST segment [...] Dictation was accomplished with the use of [employer] voice recognition software, which is prone to medical misidentifications and grammatical errors. This are unintentional and the practitioner does try to identify and correct these, but some could still be present. Please do not hesitate to contact practitioner for clarification. 04/08/2025 Headache, unspecified (ICD-10 - R51.9) 04/21/2025 Headache, unspecified (ICD-10 - R51.9) 04/15/2025 Episodic [...] rhythm, first degree AV block, rate 60. ME interval 220. QTc 432. No ST segment [...] Dictation was accomplished with the use of [employer] voice recognition software, which is prone to [...] rhythm, first degree AV block, rate 60. ME interval 220. QTc 432. No ST segment [...] Dictation was accomplished with the use of [employer] voice recognition software, which is prone to [...] rhythm, first degree AV block, rate 60. ME interval 220. QTc 432. No ST segment [...] Dictation was accomplished with the use of [employer] voice recognition software, which is prone to [...] rhythm, first degree AV block, rate 60. ME interval 220. QTc 432. No ST segment [...] Dictation was accomplished with the use of [employer] voice recognition software, which is prone to medical misidentifications and grammatical errors. This are unintentional and the practitioner does try to identify and correct these, but some could still be present. Please do not hesitate to contact practitioner for clarification. 07/09/2024 Annual physical exam (ICD-10 - Z00.00) [...] log exercise and discussed fitness Apps like [employer] which can help keep log off calories [...] needed 9.Flu vaccine was updated today 07/09/2024 Lipid screening (ICD-10 - Z13.220) Insert [...] log exercise and discussed fitness Apps like [employer] which can help keep log off calories [...] if needed 9.Flu vaccine was updated today 04/01/2025 Mixed hyperlipidemia (ICD-10 - E78.2) Sonal [...] rhythm, first degree AV block, rate 60. ME interval 220. QTc 432. No ST segment [...] Dictation was accomplished with the use of [employer] voice recognition software, which is prone to medical misidentifications and grammatical errors. This are unintentional and the practitioner does try to identify and correct these, but some could still be present. Please do not hesitate to contact practitioner for clarification. 04/15/2025 Mixed hyperlipidemia (ICD-10 - E78.2) Sonal [...] rhythm, first degree AV block, rate 60. ME interval 220. QTc 432. No ST segment [...] Dictation was accomplished with the use of [employer] voice recognition software, which is prone to [...] rhythm, first degree AV block, rate 60. ME interval 220. QTc 432. No ST segment [...] Dictation was accomplished with the use of [employer] voice recognition software, which is prone to [...] Dictation was accomplished with the use of [employer] voice recognition software, which is prone to [...] Dictation was accomplished with the use of [employer] voice recognition software, which is prone to medical misidentifications and grammatical errors. This are unintentional and the practitioner does try to identify and correct these, but some could still be present. Please do not hesitate to contact practitioner for clarification. 03/02/2025 Encounter for examination of blood pressure [...] Dictation was accomplished with the use of [employer] voice recognition software, which is prone to [...] Dictation was accomplished with the use of [employer] voice recognition software, which is prone to [...] rhythm, first degree AV block, rate 60. ME interval 220. QTc 432. No ST segment [...] Dictation was accomplished with the use of [employer] voice recognition software, which is prone to [...] rhythm, first degree AV block, rate 60. ME interval 220. QTc 432. No ST segment [...] Dictation was accomplished with the use of [employer] voice recognition software, which is prone to [...] rhythm, first degree AV block, rate 60. ME interval 220. QTc 432. No ST segment [...] Dictation was accomplished with the use of [employer] voice recognition software, which is prone to medical misidentifications and grammatical errors. This are unintentional and the practitioner does try to identify and correct these, but some could still be present. Please do not hesitate to contact practitioner for clarification. 07/09/2024 Encounter for immunization (ICD-10 - Z23) [...] log exercise and discussed fitness Apps like [employer] which can help keep log off calories [...] if needed 9.Flu vaccine was updated today 04/15/2025 Encounter for examination of blood pressure [...] rhythm, first degree AV block, rate 60. ME interval 220. QTc 432. No ST segment [...] Dictation was accomplished with the use of [employer] voice recognition software, which is prone to [...] rhythm, first degree AV block, rate 60. ME interval 220. QTc 432. No ST segment [...] Dictation was accomplished with the use of [employer] voice recognition software, which is prone to medical misidentifications and grammatical errors. This are unintentional and the practitioner does try to identify and correct these, but some could still be present. Please do not hesitate to contact practitioner for clarification. 04/15/2025 Acute nonintractable headache, unspecified headache type (ICD-10 - R51.9) Sonal is a 79-year-old female with past [...] rhythm, first degree AV block, rate 60. ME interval 220. QTc 432. No ST segment [...] Dictation was accomplished with the use of [employer] voice recognition software, which is prone to [...] PANEL 07/03/2018 HEMOGLOBIN A1C 12/16/2017 LIPID PANEL 12/16/2017 LIPID PANEL 02/09/2021 TSH WITH REFLEX TO FT4 12/16/2017 URINALYSIS, COMPLETE 12/16/2017 Vitamin D 1,25 Dihydroxy Level 9 Osmolality Urine 03/14/2020 Culture Stool 03/02/2025 MRA Neck w and w/o Contrast 04/21/2025 VITAMIN D, 25-HYDROXY 01/28/2018 URINE CULTURE 03/14/2020 UA WITH CULTURE IF INDICATED 07/09/2024 TOTAL T3 03/19/2025 LIPID PANEL, STANDARD 03/19/2025 LIPID PANEL, STANDARD 07/09/2024 LIPID PANEL, STANDARD 01/09/2024 LIPID PANEL, STANDARD 07/04/2023 LIPID PANEL, STANDARD 01/24/2022 COMPREHENSIVE METABOLIC PANEL 05/14/2024 COMPREHENSIVE METABOLIC PANEL 07/04/2023 COMPREHENSIVE METABOLIC PANEL 01/09/2024 COMPREHENSIVE METABOLIC PANEL 07/09/2024 COMPREHENSIVE METABOLIC PANEL 03/19/2025 COMPREHENSIVE METABOLIC PANEL 03/02/2025 CBC (INCLUDES DIFF/PLT) 03/02/2025 CBC (INCLUDES DIFF/PLT) 03/19/2025 CBC (INCLUDES DIFF/PLT) 07/09/2024 CBC (INCLUDES DIFF/PLT) 01/09/2024 CBC (INCLUDES DIFF/PLT) 07/04/2023 CBC (INCLUDES DIFF/PLT) 05/14/2024 URINALYSIS, COMPLETE 01/09/2024 URINALYSIS, COMPLETE 07/04/2023 HEMOGLOBIN A1c 03/19/2025 TSH 03/19/2025 T3, FREE 03/19/2025 Future Test Test Name Order Date 25OH VITAMIN D 09/16/2020 CBC (COMPLETE BLOOD COUNT) 09/16/2020 COMPREHENSIVE METABOLIC PANEL 09/16/2020 T3, FREE 09/16/2020 T4, TOTAL 09/16/2020 TSH 09/16/2020 ESR 09/16/2020 COMPLETE URINALYSIS 09/16/2020 Next Appt Details Provider Name:HORACIO VALENTIN, 07/12/2025 10:00:00 AM, [address], [facility] [place], [address], Insurance Providers Payer Name Payer Address Payer Phone Subscriber Number Group Number Insured Name Patient Relationship to Insured Coverage Start Date Coverage End Date Medicare Part B J14 [address] [place] [address] [id number] SONAL KENDRICK Self - patient is the insured [employer] [address] [place] [id number] SONAL KENDRICK Self - patient is the insured Medical (General) History Medical History History ICD Code low back pain vitamin D deficiency seizure disorder TIA 2021 Surgical History Surgery Date(Month/Year) ovaries removed colonoscopy 5 years
--- OUTSIDE RECORDS SUMMARY | 2025-06-23 08:12 | XMS_ITS | Clinical Summary ---
Author Organization [facility] Address [address] [place], [place] [id number] Phone Care Team Providers Care Glove Factory Sewer Name Role Phone Caitlin Valentin MD Primary [...] & B [employer] ENHANCE SUPPLEMENT MEDICARE PART A & B [employer]ANCE SUPPLEMENT MEDICARE PART A & B MEDICARE ENHANCE SUPPLEMENT MEDICARE PART A & B [facility] MEDICARE ENHANCE SUPPLEMENT MEDICARE PART A & B [facility] MEDICARE ENHANCE SUPPLEMENT MEDICARE PART A & B [facility] MEDICARE ENHANCE SUPPLEMENT MEDICARE PART A & B [employer]ANCE SUPPLEMENT MEDICARE PART A & B Member Subscriber Plan / Payer (Ef fective 2009-Present) Name:Sonal Meier Member ID:[id number] Relation to Subscriber:Self Name:Sonal Meier Subscriber ID:[id number] Payer ID:[id number] Group ID:Not on file Type:Medicare Address: [employer] [address] [facility] MEDICARE ENHANCE SUPPLEMENT MEDICARE PART A & B [facility] MEDICARE ENHANCE SUPPLEMENT Care Teams Glove Factory Sewer Relationship Specialty Start Date End Date Caitlin Valentin MD [address] [place] [id number] PCP - General Internal Medicine 03/21/20 Additional Source Comments The information contained in this document represents components of the legal health record. It is not the complete legal health record.[facility]
--- OUTSIDE RECORDS SUMMARY | 2025-06-23 08:13 | XMS_ITS | Patient Health Record ---
Author Organization [facility] Address [address] [place] [address] Care Team Providers Care Business Change Manager Name Role Phone MORGAN JUAREZ, HORACIO Primary Care Provider UnavailPamela Rivers Unavailable [phone] RHONDA GARCIA Unavailable [phone] Allergies No Known Allergies Results Component Value Reference Range Notes PDF Report Reviewed date:07/13/2024 08:35:59 AM Interpretation: Performing Lab:[facility], [address], [address], [place], Phone - [phone], [facility] Notes/Report: Urine Culture, Routine-[id number] Reviewed date:07/13/2024 04:00:51 PM Interpretation: Performing Lab:[facility], [address], [address], [place], Phone - [phone], [facility] Notes/Report: Urine Culture, Routine Final report Result 1 Culture shows less than 10,000 colony forming units of bacteria per milliliter of urine. This colony count is not generally considered to be clinically significant. 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) Other benign mammary dysplasias of unspecified breast (N60.89) Active confirmed Problem Subacute and chronic vaginitis (N76.1) Active confirmed Problem Atrophy of vulva (385769606) Atrophy of vulva (N90.5) Active confirmed Problem Vulvodynia (404305239) Vulvodynia, 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 Problem Candidal vulvovaginitis (71705626) Candidiasis of vulva and vagina (112.1) Active confirmed Other Problem Mastodynia (26938038) Mastodynia (611.71) Active confirmed Diag Problem Breast lump (84793236) Lump or mass in breast (611.72) Active confirmed Diag Problem Postmenopausal bleeding (68849638) Postmenopausal bleeding (627.1) Active confirmed Major Problem Menopausal symptom (16951392) Symptomatic menopausal or female climacteric states (627.2) Active confirmed Major Problem Postmenopausal atrophic vaginitis (59229274) Postmenopausal atrophic vaginitis (627.3) Active confirmed Diag Problem Gynecological examination normal (426891732022685) Routine gynecological examination (V72.31) Active confirmed Major Problem Screening for malignant neoplasm of colon (686101185) Special screening for malignant neoplasms, colon (V76.51) Active confirmed Major Vital Signs Temperature 97.5 degrees Fahrenheit 06/22/2025 Blood pressure diastolic 62 mm Hg 06/22/2025 Height 61.5 in 06/22/2025 Blood pressure systolic 118 mm Hg 06/22/2025 Weight 140 lbs 06/22/2025 BMI 26.02 kg/m2 06/22/2025 Encounters Encounter Location Date Provider Diagnosis [address] [address] 07/10/2024 RHONDA GARCIA Pelvic and perineal pain R10.2 and Mastodynia N64.[address] [address] 06/22/2025 Pamela Walters Encounter for gynecological examination (general) (routine) without abnormal findings Z01.419 ; Encounter for screening mammogram for malignant neoplasm of breast Z12.31 ; Other specified disorders of bone density and structure, multiple sites M85.89 and Postmenopausal atrophic vaginitis N95.[address] [address] 04/26/2025 Pamela Walters Postmenopausal atrophic vaginitis N95.2 [...] Test Test Name Order Date MAMMOGRAM, SCREENING 06/30/2018 MAMMOGRAM, SCREENING 07/13/2020 MAMMOGRAM, SCREENING 07/14/2021 MAMMOGRAM, SCREENING 07/05/2022 MAMMOGRAM, SCREENING 06/22/2025 MAMMOGRAM, SCREENING 06/27/2016 Urinalysis 02/27/2021 Urinalysis 04/21/2021 Urinalysis 07/10/2021 Urinalysis 03/17/2020 MRI : Lumbar Spine with and without Cont rast 06/23/2019 ONE SWAB 07/30/2022 ONE SWAB 01/16/2022 ONE SWAB 04/21/2021 ONE SWAB 06/27/2016 ONE SWAB 10/24/2015 ONE SWAB 04/05/2015 ONE SWAB 11/09/2016 COMPLETE URINALYSIS 08/03/2022 URINE CULTURE 08/03/2022 URINE CULTURE 02/27/2021 BONE DENSITY 07/14/2021 BONE DENSITY 07/05/2022 BONE DENSITY 06/30/2018 BONE DENSITY 07/13/2020 BONE DENSITY 06/22/2025 MM Digital Mammo Screening 07/13/2020 MM Digital Mammo Screening 07/14/2021 MM Digital Mammo Screening 07/05/2022 MM Digital Mammo Screening 06/22/2025 COMPLETE URINALYSIS 01/11/2016 Next Appt Details Provider Name:Pamela english, 06/29/2026 11:00:00 AM, [address], [address], [place], [address], Insurance Providers Payer Name Payer Address Payer Phone Subscriber Number Group Number Insured Name Patient Relationship to Insured Coverage Start Date Coverage End Date MEDICARE [address] [place] [id number] RASHMI KENDRICK Self - patient is the insured [employer] [address] [place], [place] [id number] [phone] [id number] RASHMI KENDRICK Self - patient is the [...]
--- OUTSIDE RECORDS SUMMARY | 2025-06-23 08:13 | XMS_ITS | Data Portability ---
Author Organization [facility] [email or web address] RONEY, [id number] [facility]_ Address [address] [place] [address] Care Team Providers Care Development Technical Lead Name Role Phone JEISON STUBBS Wealth Management Manager Assessment No assessment recorded. Plan of Treatment Reminders Order Date Submit Date Provider Last Modified By Organization Details Last Modified Time Details Appointments None recorded. Lab pap, IG + reflex HPV if ASC-U 2023 024 [facility], [address] [place], [address], 4 09:09:07 bacterial vaginosis + vaginitis panel, vaginal 2021 022 [facility], [address] [place], [address], 2 12:51:02 urinalysi s, dipstick 2021 022 ppapapanos In-House Results, For Internal Use Only, Do Not Delete/merge, [id number] 2 16:03:29 culture, urine 2021 022 URANIA [facility], [address] [place], [address], 2 05:08:16 bacterial vaginosis + vaginitis panel, vaginal 2020 021 [facility], [address] [place], [address], 15:50:49 urinalysi s, dipstick 2020 URANIA In-House Results, For Internal Use Only, Do Not Delete/merge, [id number] 14:52:19 culture, urine 2020 URANIA [facility], [address] [place], [address], 09:08:12 Referral None recorded. Procedures fractiona l CO2 laser vaginal therapy (PROC) 2020 [email or web address] Not available 09:51:15 Surgeries None recorded. Imaging None recorded. Medication Orders None recorded. Patient TargetsNo targets recorded. Patient Instructions Encounter Date Encounter Id Patient Instructions Last Modified By Organization Details Last Modified Time 06/07/2021 [id number] atrophic vaginitis: care instructions [email or web address] Not available 06/07/2021 14:50:51 painful urination (dysuria): care instructions ppapapanos Not available 06/07/2021 14:50:51 10/10/[id number] Female Urinary Tract Infection (UTI): Care Instructions ppapapanos Not available 10/10/2021 16:03:29 atrophic vaginitis: care instructions ppapapanos Not available 10/10/2021 16:03:29 12/02/2023 [id number] atrophic vaginitis: care instructions ppapapanos Not available 12/02/2023 09:29:17 Reason for Referral None Reported. Results Created Date Observation Date Name Description Value Unit Range Abnormal Flag Note LastModifiedBy Organization Detail LastModifiedTime 06/07/2006/07/2021 VAGIN ITIS/ VAGIN OSIS PANEL other info Other Inform ation Not Available [facility] [address], [place], [address], 06/08/2021 15:50:49 06/07/20 21 06/08/2021 VAGIN ITIS/ VAGIN OSIS PANEL vagina,swab Vagin a,swa b Not Available [facility] [address] [facility], [place], [address], 06/08/2021 15:50:49 06/07/20 21 06/08/2021 VAGIN ITIS/ VAGIN OSIS PANEL trichomonas vaginalis Negati ve Not Available [facility] [address] [facility], [place], [address], 06/08/2021 15:50:49 06/07/20 21 06/08/2021 VAGIN ITIS/ VAGIN OSIS PANEL lidya glabrata Negati ve Not Available [facility] [address] [facility], [place], [address], 06/08/2021 15:50:49 06/07/20 21 06/08/2021 VAGIN ITIS/ VAGIN OSIS PANEL lidya albicans, tropicalis, dubliniesis + parapsilosis result Negati ve Not Available [facility] [address] [facility], [place], [address], 06/08/2021 15:50:49 06/07/20 21 06/08/2021 VAGIN ITIS/ VAGIN OSIS PANEL bacterial vaginosis Negati ve Not Available [facility] [address] [facility], [place], [address], 06/08/2021 15:50:49 06/07/20 21 06/12/2021 URINE CULTU RE, ROUTI NE urine culture, routine Final report abnormal Not Available [facility] ([facility]) [address] [place], [address], 06/12/2021 09:08:12 06/07/20 21 06/12/2021 URINE CULTU RE, ROUTI NE result 1 Alex anand ii abnormal Great er than 100,0 00 colon y formi ng units per mL Not Available [facility] ([facility]) [address] [place], [address], 06/12/2021 09:08:12 12/08/06/12/2021 URINE CULTU RE, ROUTI NE antimicrobia l susceptibili ty Commen t S = Susce ptibl e; I = Inter media te; R = Resis tant P = Posit zaid; N = Negat zaid MICS are expre ssed in micro grams per mL Antib iotic RSLT# 1 RSLT# 2 RSLT# 3 RSLT# 4 Amoxi cilli n/Cla vulan ic Acid R Ampic illin R Cefaz chary R Cefur oxime R Cipro floxa jayro S Ertap enem S Genta micin S Imipe nem I Levof loxac in S Merop enem S Nitro furan toin R Piper acill in/Ta zobac dow S Tetra cycli ne S Tobra mycin S Trime thopr im/Hoffmann lfa S Not Available [facility] ([facility]) [address] [facility], [place], [address], 06/12/2021 09:08:12 06/07/2006/07/2021 urina lysis , dipst ick Unknown Analyte Negati ve Not Available In-House Results For Internal Use Only, Do Not Delete/merge, [id number] 06/07/2021 14:50:11 06/07/20 21 06/07/2021 urina lysis , dipst ick Unknown Analyte Negati ve Not Available In-House Results For Internal Use Only, Do Not Delete/merge, [id number] 06/07/2021 14:50:11 06/07/20 21 06/07/2021 urina lysis , dipst ick Unknown Analyte Negati ve Not Available In-House Results For Internal Use Only, Do Not Delete/merge, [id number] 06/07/2021 14:50:11 06/07/20 21 06/07/2021 urina lysis , dipst ick Unknown Analyte 1.010 Not Available In-Nelda se Results For Internal Use Only, Do Not Delete/merge, [id number] 06/07/2021 14:50:11 06/07/20 21 06/07/2021 urina lysis , dipst ick Unknown Analyte Negati ve Not Available In-House Results For Internal Use Only, Do Not Delete/merge, [id number] 06/07/2021 14:50:11 06/07/20 21 06/07/2021 urina lysis , dipst ick Unknown Analyte 5.5 Not Available In-Nelda se Results For Internal Use Only, Do Not Delete/merge, [id number] 06/07/2021 14:50:11 06/07/20 21 06/07/2021 urina lysis , dipst ick Unknown Analyte Negati ve Not Available In-House Results For Internal Use Only, Do Not Delete/merge, [id number] 06/07/2021 14:50:11 06/07/20 21 06/07/2021 urina lysis , dipst ick Unknown Analyte 0.2 Not Available In-Nelda se Results For Internal Use Only, Do Not Delete/merge, [id number] 06/07/2021 14:50:11 06/07/20 21 06/07/2021 urina lysis , dipst ick Unknown Analyte negati ve Not Available In-House Results For Internal Use Only, Do Not Delete/merge, [id number] 06/07/2021 14:50:11 06/07/20 21 06/07/2021 urina lysis , dipst ick Unknown Analyte Trace Not Available In-Nelda se Results For Internal Use Only, Do Not Delete/merge, [id number] 06/07/2021 14:50:11 06/07/20 21 06/07/2021 urina lysis , dipst ick Unknown Analyte Yellow Not Available In-Nelda se Results For Internal Use Only, Do Not Delete/merge, [id number] 06/07/2021 14:50:11 06/07/20 21 06/07/2021 urina lysis , dipst ick Unknown Analyte Clear Not Available In-Nelda se Results For Internal Use Only, Do Not Delete/merge, [id number] 06/07/2021 14:50:11 06/07/20 21 06/07/2021 urina lysis , dipst ick Unknown Analyte Clean Catch Not Available In-House Results For Internal Use Only, Do Not Delete/merge, [id number] 06/07/2021 14:39:25 06/07/20 21 06/07/2021 urina lysis , dipst ick Unknown Analyte Negati ve Not Available In-House Results For Internal Use Only, Do Not Delete/merge, [id number] 06/07/2021 14:39:25 06/07/20 21 06/07/2021 urina lysis , dipst ick Unknown Analyte Negati ve Not Available In-House Results For Internal Use Only, Do Not Delete/merge, 06/07/2021 14:39:25 06/07/20 21 06/07/2021 urina lysis , dipst ick Unknown Analyte Negati ve Not Available In-House Results For Internal Use Only, Do Not Delete/merge, 06/07/2021 14:39:25 06/07/20 21 06/07/2021 urina lysis , dipst ick Unknown Analyte 1.010 Not Available In-Nelda se Results For Internal Use Only, Do Not Delete/merge, [id number] 06/07/2021 14:39:25 06/07/20 21 06/07/2021 urina lysis , dipst ick Unknown Analyte Negati ve Not Available In-House Results For Internal Use Only, Do Not Delete/merge, [id number] 06/07/2021 14:39:25 06/07/20 21 06/07/2021 urina lysis , dipst ick Unknown Analyte 5.5 Not Available In-Nelda se Results For Internal Use Only, Do Not Delete/merge, 06/07/2021 14:39:25 06/07/20 21 06/07/2021 urina lysis , dipst ick Unknown Analyte Negati ve Not Available In-House Results For Internal Use Only, Do Not Delete/merge, 06/07/2021 14:39:25 06/07/20 21 06/07/2021 urina lysis , dipst ick Unknown Analyte 0.2 Not Available In-Nelda se Results For Internal Use Only, Do Not Delete/merge, 06/07/2021 14:39:25 06/07/20 21 06/07/2021 urina lysis , dipst ick Unknown Analyte negati ve Not Available In-House Results For Internal Use Only, Do Not Delete/merge, 06/07/2021 14:39:25 06/07/20 21 06/07/2021 urina lysis , dipst ick Unknown Analyte Trace Not Available In-Nelda se Results For Internal Use Only, Do Not Delete/merge, [id number] 06/07/2021 14:39:25 06/07/20 21 06/07/2021 urina lysis , dipst ick Unknown Analyte Dark Yellow Not Available In-House Results For Internal Use Only, Do Not Delete/merge, [id number] 06/07/2021 14:39:25 06/07/20 21 06/07/2021 urina lysis , dipst ick Unknown Analyte Clear Not Available In-Nelda se Results For Internal Use Only, Do Not Delete/merge, [id number] 06/07/2021 14:39:25 09/19/19 22 09/25/2021 URINE CULTU RE, ROUTI NE urine culture, routine Final report abnormal Not Available [facility] ([facility]) [address] [facility], [place], [address], 09/26/2021 05:07:07 09/19/19 22 09/25/2021 URINE CULTU RE, ROUTI NE result 1 Escher ichia coli abnormal Cefaz chary <=4 ug/mL Cefaz chary with an FIDELIA <=16 predi cts susce ptibi lity to the oral agent s cefac jackson, cefdi cal, cefpo doxim e, cefpr ozil, cefur oxime , cepha lexin , and lorac arbef when used for thera py of uncom plica juan urina ry tract infec tions due to E. coli, Klebs iella pneum oniae , and Prote us mirab ilis. Great er than 100,0 00 colon y formi ng units per mL Not Available [facility] ([facility]) [address] [facility], [place], [address], 09/26/2021 05:07:07 09/19/19 22 09/25/2021 URINE CULTU RE, ROUTI NE antimicrobia l susceptibili ty Commen t S = Susce ptibl e; I = Inter media te; R = Resis tant P = Posit zaid; N = Negat zaid MICS are expre ssed in micro grams per mL Antib iotic RSLT# 1 RSLT# 2 RSLT# 3 RSLT# 4 Amoxi cilli n/Cla vulan ic Acid S Ampic illin S Cefep lamont S Ceftr iaxon e S Cefur oxime S Cipro floxa jayro S Ertap enem S Genta micin S Imipe nem S Levof loxac in S Merop enem S Nitro furan toin S Piper acill in/Ta zobac dow S Tetra cycli ne S Tobra mycin S Trime thopr im/Hoffmann lfa S Not Available [facility] ([facility]) [address] [facility], [place], [address], 09/26/2021 05:07:07 10/11/19 22 10/10/2021 VAGIN ITIS/ VAGIN OSIS PANEL other info Other Inform ation Clini Matteo fo :vagi na swab Not Available [facility] [address], [place], [address], 10/11/2021 12:51:02 10/11/19 22 10/11/2021 VAGIN ITIS/ VAGIN OSIS PANEL vagina,swab Vagin a,swa b Not Available [facility] [address], [place], [address], 10/11/2021 12:51:02 10/11/19 22 10/11/2021 VAGIN ITIS/ VAGIN OSIS PANEL trichomonas vaginalis Negati ve Not Available [facility] [address] [place], [address], 10/11/2021 12:51:02 10/11/19 22 10/11/2021 VAGIN ITIS/ VAGIN OSIS PANEL lidya glabrata Negati ve Not Available [facility] [address], [place], [address], 10/11/2021 12:51:02 10/11/19 22 10/11/2021 VAGIN ITIS/ VAGIN OSIS PANEL lidya albicans, tropicalis, dubliniesis + parapsilosis result Negati ve Not Available [facility] [address], [place], [address], 10/11/2021 12:51:02 10/11/19 22 10/11/2021 VAGIN ITIS/ VAGIN OSIS PANEL bacterial vaginosis Negati ve Not Available [facility] [address], [place], [address], 10/11/2021 12:51:02 10/11/19 22 10/13/2021 URINE CULTU RE, ROUTI NE urine culture, routine Final report Not Available [facility] ([facility]) [address] [facility], [place], [address], 10/13/2021 05:08:16 10/11/19 22 10/13/2021 URINE CULTU RE, ROUTI NE result 1 No growth Not Available [facility] ([facility]) [address] [facility], [place], [address], 10/13/2021 05:08:16 10/11/19 22 10/10/2021 urina lysis , dipst ick Unknown Analyte Clean Catch Not Available In-House Results For Internal Use Only, Do Not Delete/merge, 10/10/2021 12:05:26 10/11/19 22 10/10/2021 urina lysis , dipst ick Unknown Analyte Negati ve Not Available In-House Results For Internal Use Only, Do Not Delete/merge, 10/10/2021 12:05:26 10/11/19 22 10/10/2021 urina lysis , dipst ick Unknown Analyte Negati ve Not Available In-House Results For Internal Use Only, Do Not Delete/merge, 10/10/2021 12:05:26 10/11/19 22 10/10/2021 urina lysis , dipst ick Unknown Analyte Negati ve Not Available In-House Results For Internal Use Only, Do Not Delete/merge, 10/10/2021 12:05:26 10/11/19 22 10/10/2021 urina lysis , dipst ick Unknown Analyte 1.005 Not Available In-Nelda se Results For Internal Use Only, Do Not Delete/merge, [id number]/1010/10/2021 12:05:10/11/19 22 10/10/2021 urina lysis , dipst ick Unknown Analyte Trace Not Available In-Nelda se Results For Internal Use Only, Do Not Delete/merge, 10/10/2021 12:05:10/11/19 22 10/10/2021 urina lysis , dipst ick Unknown Analyte 6.5 Not Available In-Nelda se Results For Internal Use Only, Do Not Delete/merge, 10/10/2021 12:05:10/11/19 22 10/10/2021 urina lysis , dipst ick Unknown Analyte Negati ve Not Available In-House Results For Internal Use Only, Do Not Delete/merge, 10/10/2021 12:05:10/11/19 22 10/10/2021 urina lysis , dipst ick Unknown Analyte 0.2 Not Available In-Nelda se Results For Internal Use Only, Do Not Delete/merge, 10/10/2021 12:05:10/11/19 22 10/10/2021 urina lysis , dipst ick Unknown Analyte negati ve Not Available In-House Results For Internal Use Only, Do Not Delete/merge, 10/10/2021 12:05:10/11/19 22 10/10/2021 urina lysis , dipst ick Unknown Analyte Negati ve Not Available In-House Results For Internal Use Only, Do Not Delete/merge, 10/10/2021 12:05:10/11/19 22 10/10/2021 urina lysis , dipst ick Unknown Analyte Yellow Not Available In-Nelda se Results For Internal Use Only, Do Not Delete/merge, 10/10/2021 12:05:10/11/19 22 10/10/2021 urina lysis , dipst ick Unknown Analyte Clear Not Available In-Nelda se Results For Internal Use Only, Do Not Delete/merge, 10/10/2021 12:05:26 12/02/19 24 12/02/2023 PAP W REFLE X HRHPV AND GENOT YPE (16+ 18/45 ) FOR ASCUS OR LSIL other info Other Inform ation Clini Matteo fo :Tete sheriffg Not Available [facility] [address], [place], [address], 12/08/2023 09:09:07 12/02/19 24 12/08/2023 PAP W REFLE X HRHPV AND GENOT YPE (16+ 18/45 ) FOR ASCUS OR LSIL cervix,thinp rep vial Cervi x,Thi nPrep Vial See Adequ acy Comme nt Speci men Adequ acy :Sati sfact ory for evalu ation . Endoc ervic al compo nent may not be disti nguis hed in cases of atrop hy. NEGAT ZAID FOR INTRA EPITH ELIAL LESIO N OR MALIG ELICIA . Negat zaid for Intra epith elial Lesio n Not Available [facility] [address], [place], [address], 12/08/2023 09:09:07 Result Notes None recorded. Problems Name Problem SNOMED Code Status Onset Date Resolution Date Notes Provider Name and Address Organization Details Recorded Time Vaginal discharge 667759371 Active 2020 JEISON STUBBS M.D. [address], [place], [address] , [facility], [facility] 14:50:30 Dysuria 04095565 Active 2020 JEISON STUBBS M.D. [address], [address], [place], [address] , [facility], [facility] 14:50:31 Atrophic vaginitis 66011423 Active 2020 JEISON STUBBS M.D. [address], [place], [address] , [facility], [facility] 14:50:48 Vaginitis 49457941 Active 2021 JEISON STUBBS M.D. [address] [employer] [address] [employer] [address] [facility], [address], [place], [address] , [facility], [facility] 2 16:03:02 Urinary tract infectious disease 74955397 Active 2021 JEISON STUBBS M.D. [address] [facility], [address], [place], [address] , [facility], [facility] 2 16:03:06 Osteoporosis 69921356 Active 2023 JEISON STUBBS M.D. [address] [facility], [address], [place], [address] , [facility], [facility] 4 09:19:38 Gynecologic examination Active 2023 JEISON STUBBS M.D. [address] [facility], [address], [place], [address] , [facility], [facility] 4 09:29:12 Screening mammography Active 2023 JEISON STUBBS M.D. [address] [facility], [address], [place], [address] , [facility], [facility] 4 09:29:14 Problem Notes None recorded. Procedures Surgical History Date Name Laterality Status Provider Name and Address Organization Details Recorded Time 3 Date of Last Mammogram completed Leana Page (TERMED) [facility], [facility] 12/02/2023 08:57:32 3 Date of Last Colonoscopy completed Leana Page (TERMED) [facility], [facility] 12/02/2023 08:57:37 3 colonoscopy completed Leana Page (TERMED) [facility], [facility] 12/02/2023 08:58:05 0 Date of Last Pap Smear completed Lierin Goyal(TERM) [facility], [facility] 06/07/2021 14:23:47 [employer]- Removal of Both Ovaries completed Lierin Goyal(TERM) [facility], [facility] 06/07/2021 14:27:37 excision of varicose vein completed Lierin Goyal(TERM) [facility], [facility] 06/07/2021 14:27:55 Imaging Results None recorded. Procedure Notes None recorded. Medical Equipment None Reported. Allergies No known drug allergies Medications Name Sig Start Date Stop Date Status Note LastModified by Organization Details LastModified Time levetiracet am 500 mg tablet Take 1 tablet twice a day by oral route. active Not Available Not Available No t Available metronidazo le 0.75 % (37.5 mg/5 gram) vaginal gel Insert 1 applicato rful every day by vaginal route at bedtime for 5 days. 2024 active Not Available Not Available Not Avai lable Diflucan 150 mg tablet 1 po now and repeat in 3 days 10/10 completed Not Available Not Available Not Available Cipro 500 mg tablet Take 1 tablet every 12 hours by oral route for 5 days. 10/10 completed Not Available Not Available Not Available estradiol 0.01% (0.1 mg/gram) vaginal cream Insert 1 applicato rful twice a week by vaginal route. active Not Available Not Available No t Available Bactrim DS 800 mg-160 mg tablet Take 1 tablet every 12 hours by oral route for 7 days. 10/10 completed Not Available Not Available Not Available Vitals Date Recorded Body height Body mass index (BMI) Body weight Systolic And Diastolic Provider Name and Address Organization Details Last Updated DateTime 10/10/2021 157.48 cm 26.3 kg/m2 13107.3 g 110/60 mm[Hg] Joya Fontanez [facility] [employer] 10/10/2021 11:39:38 Date Recorded Body weight Body mass index (BMI) Body height Systolic And Diastolic Provider Name and Address Organization Details Last Updated DateTime 12/02/2023 30544.3 g 26.3 kg/m2 157.48 cm 100/60 mm[Hg] Leana Baker (TERMED) [facility] [employer] 12/02/2023 08:57:03 Date Recorded Body weight Systolic And Diastolic Provider Name and Address Organization Details Last Updated DateTime 06/07/2021 03548.18 g 120/72 mm[Hg] Lisandro Goyal(TERM) [facility] [employer] [facility] 06/07/2021 14:36:30 Date Recorded Body mass index (BMI) Body height Provider Name and Address Organization Details Last Updated DateTime 06/07/2021 26.5 kg/m2 157.48 cm Smita Cordero [facility] [employer] [facility] 06/07/2021 14:46:43 Social History Question Answer Notes LastModified by [employer] Details LastModified Time Tobacco Smoking Status Never Smoker Lisandro Goyal(TERM) null, [facility] [employer] [facility] 06/07/2021 14:27:16 What Is Your Level Of Caffeine Consumption? Moderate 1 A Day Information not available 06/07/2021 What Was The Date Of Your Most Recent Tobacco Screening? 06/07/2021 [email or web address] Information not available 06/07/2021 Sex: Unknown Functional Status Question Answer Note LastModified by [employer] Details LastModified Time Do you use any illicit or recreational drugs? No [email or web address] Information not available 06/07/2021 What is your level of alcohol consumption? None [email or web address] Information not available 06/07/2021 What is your exercise level? Heavy daily Information not available 06/07/2021 Mental Status None recorded. Family History Relationship Description Onset Age of this Age Resolved Age Notes LastModified by Organization Details LastModified Time Mother Hypertensive disorder Not available 2020 15:27:04 Brother Malignant neoplasm of lung [email or web address] Not available 2020 15:27:17 Sister Malignant neoplasm of colon [email or web address] Not available 2020 15:27:32 Medical History Condition Response Neurology- Headaches/Migraines Y Neurology- Stroke/TIA Y Gynecological History Statement/Question Response Total lifetime partners Less than 5 Date of Last Mammogram 07/01/2022 Date of LMP HPV Test Not applicable Age at Menopause 51 Age at Menarche 11 History of Endometriosis N History of Cervical Dysplasia N Age at first intercourse Sexually active Y Date of Last Colonoscopy 07/01/2022 Current Control Method: Menopause History of Sexually Transmitted Infectio n N History of Infertility N Date of last bone density 07/01/2022 History of abnormal PAP N Date of Last Pap Smear 07/01/2019 History of Recurrent Ovarian Cyst Y History of Fibroids N Obstetrics History GPAL:G 4 P 2 1 2 2 Type Value Full Term 2 Induced 2 Premature 1 Living 2 Total 4 Immunizations Vaccine Type Date Status Note Provider Nam e and Address Organization Details Recorded Time Influenza, split virus, quadrivalent, preservative completed Lisandro Goyal(TERM) [place], [place] [employer] [facility] 06/07/2021 14:36:43 Past Encounters Encounter ID Performer Location Encounter Start Date Encounter Closed Date Diagnosis/Indication Diagnosis SNOMED-CT Code Diagnosis ICD10 Code Diagnosis IMO Codes Diagnosis Note [id number] JEISON STUBBS M.D. [id number] [address] [address] 06/07/2021 13:34:00 06/07/2021 14:54:16 Dysuria 44056869 R30.9 Urine culture sent. Vaginal discharge 028341 006 N89.8 Vaginal culture done. Most likely symptoms are related to atrophy. Atrophic vaginitis 35385 000 N95.2 Interested in Blanca Maria Luisa touch. Order placed. [id number] JEISON STUBBS M.D. [id number] [address] [place] [address] 10/10/2021 11:22:24 10/10/2021 12:00:29 Urinary tract infectious disease 02620831 N39.0 Completed treatment. E. coli on culture. Recent bacterial what she had in May. Use also Diflucan. Still some residual possibly yeast infection. Vaginal culture done. Will call patient with results. Test of cure also for with UA done. Vaginitis 55381049 N76.0 Vaginal discharge 487263 006 N89.8 Vaginal culture done. Most likely symptoms are related to atrophy. Atrophic vaginitis 22044 000 N95.2 Continue with Blanca Maria Luisa. [id number] JEISON STUBBS M.D. [id number] [address] [place] [address] 12/02/2023 08:33:52 12/02/2023 09:24:00 Gynecologic examination 45118229 Z01.419 Normal well woman exam. Preventati ve care and general health counseling given. Mammogram screening was recommende d. Will call patient with abnormal results. Annual followup or earlier as needed. Screening mammography 24 484300 Z12.31 Monthly self breast exam and annual breast exam by physician and mammograph y discussed with patient. Mammogram and bone density with PCP. Atrophic vaginitis [id number] N95.2 Did not Blanca Maria Luisa in the past. Now using aloe vera and coconut oil occasional ly and sporadical ly vaginal estrogen and doing well. No need for Blanca Maria Luisa. Health Concerns Section Related Observation LastModified by Organization Detai ls LastModified Time None Recorded Concern Status LastModified by Organization Details LastModified Time None Recorded Advance Directives Directive None Recorded Payers Insurance Date Sequence Insurance Name Policy Number Policy Valadez Covered Member ID Valadez Member ID Guarantor Name 11/05/2024 1 [place] Sonal Meier [id number] Sonal Shankars 10/25/2023 2 [facility] [id number] Sonal Sneed Thejames [id number] Sonal Theuniquekis 11/30/2023 2 [facility] (MEDICARE SUPPLEMENT) [id number] Sonal Sneed Theodsanjanas [id number] Sonal Thevanessaorakis Notes Date Note Type Note Provider Name and Address Organization Details Recorded Time 06/07/2021 text/html Patient complains of vaginal discomfort and dryness. Does not use vaginal estrogen because she had hyperplasia of breast and she is concerned that that make it worse. Was seen at urgent care had a urine analysis that was negative.Had bacterial vaginosis and yeast infection intermittently the last few months. No abnormal discharge. Has vaginal dryness. JEISON STUBBS M.D. [address] [facility], [address], [place], [address], [facility] [employer] [facility] 06/07/2021 16:42:29 10/10/2021 text/html Patient was recently treated for UTI. UTI symptoms have resolved. Nonetheless patient is going out of town and wants to confirm that she has no remaining infection. Also has some vaginal irritation and itching. Use Diflucan in the past. No abnormal discharge. No hematuria. No dysuria. Also has atrophic vaginitis and is under treatment for that. JEISON [facility], [address], [place], [address], [facility] [employer] [facility] 10/10/2021 16:03:34 12/02/2023 text/html Denies any vaginitis, breast, urinary or bowel habits complaints or menstrual irregularities. JEISON STUBBS M.D. [address] [facility], [address], [place], [address], [facility] [employer] [facility] 12/02/2023 09:29:33 OBGyn Episode No OBEpisode recorded.
[2025-06-23 09:27] LABS: Cholesterol 178 mg/dL (<200); HDL Cholesterol 68 mg/dL (>40); Triglycerides 67 mg/dL (<150)
== END 2025-06-23 08:08 | disposition home or self-care (01) ==
LOC: HO.LAB 08:07
PROVIDERS: PCP Internal Medicine; Visit Provider Psychiatry & Neurology Neurology
DX: Z13.6 Encounter for screening for cardiovascular disorders (principal); R51.9 Headache, unspecified
CPT/HCPCS: 36415; 80061; 85652